=== PATIENT | male | born 1965 | race Caucasian/White ===

== ENCOUNTER → 2018-10-21 11:27 | Outpatient (CLI) | payer MEDICARE, MEDICAID, SELFPAY ==
[2018-10-21 12:54] LABS: Erythrocyte Sedimentation Rate 2 mm/hr (0-20)
[2018-10-21 13:02] LABS: Vitamin B12 642 pg/mL (211-911)
[2018-10-21 13:03] LABS: Thyroid Stim Hormone (TSH) 1.36 uIU/mL (0.358-3.74)
[2018-10-23 06:06] LABS: Ceruloplasmin 18.3 mg/dL (16.0-31.0)
[2018-10-24 16:54] LABS: Copper, Serum or Plasma 77 ug/dL (72-166)
== END ==
PROVIDERS: Family Provider Family Medicine; PCP Family Medicine; Referring Provider Psychiatry & Neurology Neurology; Visit Provider Psychiatry & Neurology Neurology
DX: R51 Headache (principal); R25.1 Tremor, unspecified
CPT/HCPCS: 36415; 82390; 82525; 82607; 84443; 85652

== ENCOUNTER → 2018-10-31 09:30 | Outpatient (CLI) | payer MEDICARE, MEDICAID, SELFPAY ==
--- NOTE | 2018-10-31 11:30 | MRI_ITS ---
STUDY: MRI BRAIN WITHOUT CONTRAST REASON FOR EXAM: Male, 53 years old. Headache, tremor, seizure TECHNIQUE: Standardized multiplanar fat and water weighted pulse sequences were obtained. COMPARISON: None. FINDINGS: Normal size of the ventricles and extra-axial spaces for the patient's age. Normal white matter tracts of the supratentorial brain. There is no evidence for recent intracranial ischemia or other cause of cytotoxic edema on diffusion weighted imaging (DWI). Normal T2* images of the brain without demonstrated susceptibility artifact. There is no demonstrated hemosiderin stain. Normal bilateral basal ganglia. Normal thalami. There is no extra-axial fluid accumulation. Normal flow voids within the major intracranial circulation suggesting patency by spin echo criteria. Normal sella turcica, pituitary gland, infundibular stalk, optic chiasm and hypothalamus. Normal tectal plate and pineal gland. Normal midbrain, reji and medulla. Normal cerebellum. Normal basal cisterns. Normal bilateral temporal bones. Normal bilateral internal auditory canals. No demonstrated orbital abnormality, within the constraints of a routine brain study. Normal visualized paranasal sinuses. Normal calvarium and skull base. Normal visualized soft tissue structures. Normal visualized upper cervical spine. MRI/Brain without Contrast IMPRESSION: Normal unenhanced MRI of the brain. Electronically Signed: Dominick Shelton MD at 12:11 EDT Tel , Service support ,
--- NOTE | 2018-11-03 13:00 | EEG ---
- Electroencephalogram Date of service 10/31/2018 History EEG is being done in this 53 yr M to rule out seizures EEG Description: This is an 18 channel EEG with 10-20 lead placement system. Bipolar montages, and Referential montages were reviewed. Photic stimulation and Hyperventilation were performed. The posterior dominant rhythm is 10 HZ synchronous, symmetric, reacting to eye opening and closing. Photo stimulation elicited normal driving response but no abnormal photoparoxysmal response, Hyperventilation did not elicit any abnormal photoparoxysmal response. Sleep was identified. There is no abnormal background slowing noted. There was no epileptiform discharges or electrographic seizures noted during this recording. Low voltage waveform during the record EEG Interpretation This is a normal awake and asleep EEG. There is no epileptiform discharges or electrographic seizures noted during the record.
== END ==
PROVIDERS: Family Provider Family Medicine; PCP Family Medicine; Referring Provider Psychiatry & Neurology Neurology; Visit Provider Psychiatry & Neurology Neurology
DX: R51 Headache (principal); R56.9 Unspecified convulsions
CPT/HCPCS: 70551; 95819

== ENCOUNTER 2024-10-13 20:14 | Emergency (ER) | payer MEDICARE, MEDICAID, SELFPAY ==
[2024-10-13 20:15] VITALS: BP 149/79; PULSE 84; RESP 18; TEMP 36.6; O2SAT 100; BMI 19.2
[2024-10-13 23:46] VITALS: BP 135/77; PULSE 61; RESP 18; TEMP 37.1; O2SAT 97
--- NOTE | 2024-10-13 23:48 | EDS_ITS ---
HPI HPI - Psych History of Present Illness Chief Complaint: Mental Health Detail of Chief Complaint: Agitation and history of schizoaffective disorder Informant: patient Onset/Context/Timing Onset: Month(s) (Problems with sister for 4 to 5 months) Context: Sudden Onset Conflict: Family Timing: Intermittent (Problem with sister and cousin) and Waxes and wanes Current Severity: Moderate Maximum Severity: Severe Worsened by: Situational factors Relieved by: Getting away from his sister Associated Symptoms Associated Symptoms - Psych: Positive for Depressed, Agitated and Angry; Negative for Change in Eating, Change in sleeping, Decreased Interest, Guilt, Decreased Concentration, Hopelessness, Suicidal Thoughts, Easily distracted, Grandiosity, Flight of Ideas, Increased activity, Pressured Speech, Hostile, Threatening, Confusion, Paranoia, Visual Hallucinations or Auditory Hallucinations Specific plan (suicidal thought): Not applicable Narrative Narrative: Patient is a 59-year-old male with history of schizoaffective disorder, hypercholesterolemia, GERD and depression who presents because of agitation. He states he can no longer tolerate his sister. He had problems for 4 to 5 months. She is causing problems between he and his cousin. They are all living in the same house apparently. He has no suicidal homicidal thoughts. He has no intention of harming his sister. He is upset with his sister. He states he needs to find a place of his own. He would like help to live someplace else. He has no other complaints or concerns. Prior similar symptoms: No Recent Illness/Hospitalization: No [facility] Medical History Nasal septal deviation Hyperlipemia Schizo affective schizophrenia Home Medications ?Medication ?Instructions ?Recorded ?Last Taken ?Type aripiprazole 10 mg tablet 10 mg PO DAILY 10/13/24 Unkn own History buspirone 15 mg tablet 15 mg PO TID 10/13/24 Unknow n History divalproex 500 mg tablet,extended 500 mg PO DAILY 09/21 08/14 Unknown History release 24 hr gabapentin 300 mg capsule PO 10/13/24 Unknown History levetiracetam 500 mg tablet 500 mg PO BID 10/13/24 Unk nown History meloxicam 15 mg tablet 15 mg PO DAILY 10/13/24 Unkn own History omeprazole 20 mg capsule,delayed 20 mg PO BID 10/13/24 Unknown History release simvastatin 20 mg tablet 20 mg PO QHS 10/13/24 Unknow n History sumatriptan succinate 50 mg tablet PO 10/13/24 Unknown History trazodone 100 mg tablet 100 mg PO QHS 10/13/24 Unkno wn History Allergy/AdvReac Type Severity Reaction Status Date / Time Penicillins Allergy Severe Anaphylaxis Verified 10/13/24 20:15 Social History Smoking Status: Current every day smoker tobacco type: cigarettes ROS ROS ED Constitutional Constitutional ED: Denies chills, fever(s) or subjective Eyes Eyes: Denies blurry vision or change in vision ENT ENT ED: Denies ear pain, rhinorrhea or sore throat Cardiovascular Cardiovascular: Denies chest pain or palpitations Respiratory/Chest Respiratory/Chest: Denies cough, dyspnea or dyspnea on exertion Gastrointestinal Gastrointestinal: Denies abdominal pain, diarrhea or vomiting Genitourinary Genitourinary ED: Denies dysuria, hematuria or urinary frequency Musculoskeletal Musculoskeletal: Denies arthralgias or myalgias Integumentary Denies rash Neurologic Neurologic: Denies headache(s) or paresthesias Psychiatric Psychiatric: Reports depression; Denies suicidal ideation or suicidal thoughts Hematologic/Lymphatic Hematologic/Lymphatic: Denies easy bleeding or easy bruising EXAM Physical Exam Const Vital Signs: 10/13/24 20:15 10/13/24 23:46 Temperature 97.9 F 98.8 F Temperature Source Temporal Pulse Rate 84 61 Respiratory Rate 18 18 Blood Pressure 149/79 H 135/77 H Blood Pressure Mean 102 96 Pulse Ox 100 97 Oxygen Delivery Method Room Air Positive well nourished, well developed and unkempt Constitutional Narrative: Blood pressure is elevated. He is not well-groomed. General Appearance ED: unkempt and well developed; Negative for pallor HEENT Reports TM's clear HEENT Narrative: Poor dentition with many missing teeth. normocephalic and atraumatic Tympanic Membrane ED: Yes TM's clear Eyes PERRL and EOMs intact bilaterally General Eye ED: Negative for pale conjunctiva or scleral icterus Neck no lymphadenopathy, supple and no JVD Resp normal respiratory effort and clear to auscultation bilaterally Cardio S1 normal heart sound, S2 normal heart sound and no murmurs Rate: regular rate Rhythm: regular rhythm GI non-tender Inspection: abdominal distention Auscultation: normoactive bowel sounds Palpation: soft Back/Spine no CVA tenderness Extremity normal to inspection General Extremety ED: Negative for edema General Extremity: Negative for edema Neuro oriented x3 and CN's II-XII intact bilaterally Sean Coma Scale: document GCS findings Spontaneous Obeys Commands Oriented 15 Sensorium / Orientation: alert Psych cooperative, speech normal, activity/motor behavior normal, denies hallucinations, denies homicidal ideation and denies suicidal ideation Appearance: grossly normal, appropriate and unkempt Attitude: calm Activity / Motor Behavior: appropriate eye contact and psychomotor slowing Speech: normal speech Mood & Affect: depressed Thought Process: normal thought process Thought Content: normal thought content Attention / Concentration: attention grossly intact and concentration grossly intact Memory / Cognition: memory grossly intact Insight: limited Judgement: fair Skin General Skin Exam: Negative for jaundice or pallor Lesions: no lesions Rashes: no rashes MDM MDM MDM Narrative Medical decision making narrative: Went to discuss case with case management. Case management had left by the time I had evaluated patient. In light of this crisis social studies department chair saw him. Made appropriate arrangements. He is willing to go back to the house. Crisis will help him with his family issues and housing. In my opinion there is no indication for laboratory testing or imaging. This is a psychosocial dynamic problem. Discharge Plan Triage Chief Complaint: Mental Health ED Provider: Rambo Suggs Dx/Rx/DC Orders Clinical Impression: Adjustment disorder with emotional disturbance, Schizoaffective disorder, Agitation, Elevated blood-pressure reading without diagnosis of hypertension Instructions: ED Adjustment Disorder, ED Hypertension, To Be Confirmed Prescriptions: No Action levetiracetam 500 mg tablet 500 mg PO BID meloxicam 15 mg tablet 15 mg PO DAILY sumatriptan succinate 50 mg tablet PO trazodone 100 mg tablet 100 mg PO QHS simvastatin 20 mg tablet 20 mg PO QHS divalproex 500 mg tablet extended release 24 hr 500 mg PO DAILY gabapentin 300 mg capsule PO omeprazole 20 mg capsule,delayed release(DR/EC) 20 mg PO BID buspirone 15 mg tablet 15 mg PO TID aripiprazole 10 mg tablet 10 mg PO DAILY Primary Care Provider: Sung Figueredo Referrals: Counseling,Center [Group of Physicians] - Keep Jose appointment Sung Figueredo MD [Primary Care Provider] - Print Language: Romanian Disposition Disposition: Home, Self Care
== END 2024-10-13 23:58 | disposition home or self-care (01) ==
PROVIDERS: Emergency Provider Emergency Medicine; PCP Family Medicine; Visit Provider Emergency Medicine
DX: F43.25 Adjustment disorder with mixed disturbance of emotions and conduct (principal); F25.9 Schizoaffective disorder, unspecified; R03.0 Elevated blood-pressure reading, without diagnosis of hypertension; K21.9 Gastro-esophageal reflux disease without esophagitis; E78.5 Hyperlipidemia, unspecified; F32.A Depression, unspecified; F17.210 Nicotine dependence, cigarettes, uncomplicated
CPT/HCPCS: 99285

== ENCOUNTER 2025-03-02 19:53 | Emergency (ER) | payer MEDICARE, MEDICAID, SELFPAY ==
[2025-03-02 20:14] VITALS: BP 110/76; PULSE 72; RESP 16; TEMP 36.8; O2SAT 99; BMI 18.4
--- NOTE | 2025-03-02 22:28 | EDS_ITS ---
HPI History of Present Illness Chief Complaint: Dental Detail of Chief Complaint: Jaw pain and swelling Informant: patient Narrative Narrative: Patient presents with left jaw pain and swelling that started 2 days ago. He denies any trauma. He staying at the [facility]. Does not have a dentist. He denies fever. [facility] Medical History Nasal septal deviation Hyperlipemia Schizo affective schizophrenia Home Medications Medication Instructions Recorded Last Taken Type aripiprazole 10 mg tablet 10 mg PO DAILY 10/13/24 Unkn own History buspirone 15 mg tablet 15 mg PO TID 10/13/24 Unknow n History divalproex 500 mg tablet,extended 500 mg PO DAILY 09/21 08/14 Unknown History release 24 hr gabapentin 300 mg capsule PO 10/13/24 Unknown History levetiracetam 500 mg tablet 500 mg PO BID 10/13/24 Unk nown History meloxicam 15 mg tablet 15 mg PO DAILY 10/13/24 Unkn own History omeprazole 20 mg capsule,delayed 20 mg PO BID 10/13/24 Unknown History release simvastatin 20 mg tablet 20 mg PO QHS 10/13/24 Unknow n History sumatriptan succinate 50 mg tablet PO 10/13/24 Unknown History trazodone 100 mg tablet 100 mg PO QHS 10/13/24 Unkno wn History clindamycin HCl 300 mg capsule 300 mg PO Q6H #40 CAPSU LES 03/02/25 Unknown Rx (Cleocin HCl) hydrocodone-acetaminophen 5-325mg 1 tab PO Q4H PRN PRN Pain 2 days 03/02/25 Unknown Rx 5mg-325mg #10 TABLETS Allergy/AdvReac Type Severity Reaction Status Date / Time Penicillins Allergy Severe Anaphylaxis Verified 03/02/25 20:16 milk (dairy) AdvReac Abd Verified 03/02/25 20:16 cramps/diarrhea Social History Smoking Status: Current every day smoker tobacco type: cigarettes ROS ROS ED Review of Systems ROS Unobtainable: other Constitutional Constitutional ED: Reports lethargy; Denies chills, fever(s), sweats or weight loss Eyes Eyes: Denies blurry vision, change in vision or diplopia ENT ENT ED: Reports other Details: Jaw pain and swelling, concern for dental abscess ; Denies rhinorrhea or sore throat Cardiovascular Cardiovascular: Denies chest pain, orthopnea or racing heartbeat Respiratory/Chest Respiratory/Chest: Reports dyspnea and dyspnea on exertion; Denies cough, orthopnea or sputum Gastrointestinal Gastrointestinal: Denies abdominal pain, diarrhea, nausea or vomiting Genitourinary Genitourinary ED: Denies dysuria, hematuria or urinary frequency Musculoskeletal Musculoskeletal: Denies arthralgias, back pain, myalgias or neck pain Integumentary Denies abscess, Abrasions or rash Neurologic Neurologic: Denies headache(s) or weakness Psychiatric Psychiatric: Denies anxiety, depression or suicidal thoughts Endocrine Endocrinology: Denies polydipsia, polyphagia or polyuria Hematologic/Lymphatic Hematologic/Lymphatic: Denies easy bleeding, easy bruising or lymphadenopathy Allergic/Immunologic Allergic/Immunologic ED: Denies mouth swelling, tongue swelling or urticaria EXAM Physical Exam Const Vital Signs: 03/02/25 20:14 Temperature 98.2 F Temperature Source Oral Pulse Rate 72 Respiratory Rate 16 Blood Pressure 110/76 Blood Pressure Mean 87 Pulse Ox 99 Oxygen Delivery Method Room Air Positive well nourished and well developed General Appearance ED: well developed and NAD HEENT Reports TM's clear and moist mucous membranes HEENT Narrative: Dentition-patient has multiple missing teeth left lower jaw missing all his molars. Some tenderness over tooth #22 and 23. Gingivitis erythematous and swollen with some fluctuance noted. There is no facial cellulitis. normocephalic and atraumatic; Negative for trauma or tenderness Tympanic Membrane ED: Yes TM's clear Eyes PERRL and EOMs intact bilaterally General Eye ED: Negative for pale conjunctiva or scleral icterus Neck no lymphadenopathy, supple and no JVD General: Negative for tenderness Chest Wall inspection of chest normal and palpation of chest normal Chest: Negative for tenderness Resp normal respiratory effort and clear to auscultation bilaterally Effort and Inspection: Negative for respiratory distress or pain with movement Auscultation: Negative for rhonchi, wheezes or diminished lung sounds Cardio regular rate, regular rhythm, S1 normal heart sound, S2 normal heart sound and no murmurs Peripheral Pulses: pulses 2+ throughout GI normal to inspection, nondistended, normoactive bowel sounds, soft to palpation, non-tender, non-distended and no masses Back/Spine no CVA tenderness and no thoracic nor lumbar tenderness Extremity normal to inspection General Extremety ED: Negative for edema General Extremity: Negative for edema Neuro oriented x3, CN's II-XII intact bilaterally, no sensory deficits noted and gait normal Sensorium / Orientation: awake, alert, oriented to person, oriented to place and oriented to time Motor Exam: strength 5/5 throughout and strength abnormal Psych mental status grossly normal Skin no rashes or lesions noted and no wounds MDM MDM MDM Narrative Medical decision making narrative: Patient presents to the ER with suspected dental abscess. Discussed treatment options including antibiotics and incision and drainage of suspected abscess which I did recommend. Patient comfortable with proceeding with incision and drainage. I used a 18-gauge needle to make a stab incision into the most fluctuant portion of the gingiva and large amount of free-flowing purulent debris was expressed with some blood. Patient gargled and irrigated with water. Patient was started on clindamycin. Will treat with clindamycin and hydrocodone for pain. Will refer to a dentist for follow-up. Discharge Plan Triage Chief Complaint: Dental ED Provider: Grayson Estrella Dx/Rx/DC Orders Clinical Impression: Abscess, dental Instructions: Dental Abscess, ED Abscess Incision And Drainage Prescriptions: New clindamycin HCl [Cleocin HCl] 300 mg capsule 300 mg PO Q6H Qty: 40 0RF hydrocodone-acetaminophen 5-325 mg tablet 1 tab PO Q4H PRN PRN (Reason: Pain) 2 Days Qty: 10 0RF No Action levetiracetam 500 mg tablet 500 mg PO BID meloxicam 15 mg tablet 15 mg PO DAILY sumatriptan succinate 50 mg tablet PO trazodone 100 mg tablet 100 mg PO QHS simvastatin 20 mg tablet 20 mg PO QHS divalproex 500 mg tablet extended release 24 hr 500 mg PO DAILY gabapentin 300 mg capsule PO omeprazole 20 mg capsule,delayed release(DR/EC) 20 mg PO BID buspirone 15 mg tablet 15 mg PO TID aripiprazole 10 mg tablet 10 mg PO DAILY Primary Care Provider: Sung Figueredo Referrals: Sung Figueredo MD [Primary Care Provider, Medical] Activity Restrictions/Additional Instructions: Follow-up with a dentist at your earliest convenience Print Language: Citizen Of [place] Disposition Disposition: Home, Self Care
[2025-03-02 22:31] VITALS: BP 151/98; PULSE 63; RESP 18; TEMP 36.8; O2SAT 99
--- OUTSIDE RECORDS SUMMARY | 2025-03-02 22:37 | XMS RPT_ITS | CCD ---
Author Organization [facility] Care Team Providers Care Aoc Director Intelligence Officer Name Role Phone JESSICA YO Unavailable Unavailable Sung Crowe MD Primary Care Provider Sung Crowe MD Primary Care Provider Sung Crowe MD Primary Care Provider Sung Crowe MD Primary Care Provider SUNG CROWE Primary Care Unavailable ISAAC GASTON Attending Unavailable STELLA LOPEZ Referring Unavailable ORQUIDEA EATON Attending Unavailable JENNIFER SHANNON Referring Unavailable SUNG CROWE Primary Care Unavailable Sung Crowe MD Primary Care Provider Haagen MARINA SALES AND SERVICE SUPERVISOR.HARITHA Monica Unavailable Suppan MARINA SALES AND SERVICE SUPERVISOR.HARITHA Janey A Unavailable Suppan MARINA SALES AND SERVICE SUPERVISOR.HARITHA, Janey A Unavailable Dr. Sung Crowe MD Primary Care Provider Dr. Rambo Suggs MD Emergency Provider Sung Crowe Primary Care Unavailable Rambo Suggs Attending Unavailable JANEY CHAUDHARY Attending Unavailable SUNG CROWE Primary Care Unavailable JANEY CHAUDHARY Referring Unavailable SUNG CROWE Primary Care Unavailable JAMIE HAAS Referring Unavailable SUNG CROWE Primary Care Unavailable SUNG CROWE Primary Care Unavailable FELIPE ASCENCIO Attending Unavailable JANEY CHAUDHARY Referring Unavailable SUNG CROWE Primary Care Unavailable SUNG GLYNN JR Attending Unavailable SUNG CROWE Primary Care Unavailable SUNG GLYNN JR Referring Unavailable SUNG CROWE Primary Care Unavailable Allergies Allergy Classification Reported Allergen(s) Allergy Type Date of Onset Reaction(s) Facility (20 sources) Penicillin; Translations: [PENICILLIN] Drug Allergy 06-03-2017 Anaphylaxis [facility] (20 sources) Bee Sting; Translations: [BEE STING] Allergy to substance 08-25-2021 Swelling [facility] (1 source) Penicillins Allergy to substance 10-13-2024 Anaphylaxis [facility] (1 source) Penicillins Drug allergy (disorder) 10-13-2024 [facility] Repository Medications Current Medications Medication Drug Class(es) Dates Sig (Normalized) Sig (Original) ARIPiprazole 10 mg oral tablet (20 sources) Atypical Antipsychotic Start: 04-24-2023 End: 04-09-2024 take 1 tablet by mouth once daily Aripiprazole 10 mg tablet Active 10 mg PO DAILY October 13, 2024 12:00am Start: 01-21-2023 take 1 tablet by farideh th once daily ARIPiprazole (ABILIFY) 10 mg tablet Indications: Paranoid schizophrenia (HCC) Take 1 tablet by mouth once daily. 30 tablet 2 01/21/2023 Active Start: 09-28-2022 take 1 tablet by farideh th once daily ARIPiprazole (ABILIFY) 10 mg tablet Indications: Paranoid schizophrenia (HCC) Take 1 tablet by mouth once daily. 30 tablet 2 09/28/2022 Active Start: 05-24-2021 End: 07-24-2022 take 1 tablet by mouth once daily ARIPiprazole (ABILIFY) 10 mg tablet Indications: Paranoid schizophrenia (HCC) Take 1 tablet by mouth once daily. 30 tablet 2 08/25/2021 12/21/2021 Discontinued Comment on above: Take 1 tablet by farideh th once daily. ascorbic acid 100 mg oral tablet (20 sources) Vitamin C take 1 tablet by mouth once daily Ascorbic Acid (VITAMIN C) 100 mg tablet Take 100 mg by mouth once daily. Active Comment on above: Take 100 mg by mouth once daily. busPIRone hydrochloride 15 mg oral tablet (20 sources) Start: 09-28-2022 End: 01-03-2024 take 1 tablet by mouth three times daily Buspirone 15 mg tablet Active 15 mg PO THREE TIMES A DAY October 13, 2024 12:00am Start: 02-22-2021 End: 02-27-2022 take 1 tablet by mouth three times daily busPIRone (BUSPAR) 15 mg tablet Indications: Anxiety Take 1 tablet by mouth three times daily. 90 tablet 5 08/25/2021 02/27/2022 Discontinued Comment on above: Take 1 tablet by farideh three times daily. Take 1 tablet by farideh three times a day. cholecalciferol 0.01 mg oral capsule (20 sources) Vitamin D take 1 capsule by mouth once daily cholecalciferol, vitamin D3, (VITAMIN D-3) 10 mcg (400 unit) cap Take 400 Units by mouth once daily. Active Comment on above: Take 400 Units by mo [facility] once daily. diclofenac sodium 0.01 mg/mg topical gel (5 sources) Nonsteroidal Anti-inflammatory Drug Start: 05-30-19 End: 11-27-19 apply 4 g topically four times daily diclofenac (VOLTAREN ARTHRITIS PAIN) 1 % topical gel Indications: Acute pain of left knee Apply 4 g to affected area four times daily. To knee 480 g 5 05/30/2022 11/26/2022 Active Comment on above: Apply 4 g to affecte d area four times daily. To knee doxycycline monohydrate 100 mg oral tablet (2 sources) Tetracycline-class Drug Start: 07-30-19 25 End: 08-06-19 25 take 1 tablet by mouth twice daily doxycycline monohydrate 100 mg tablet Take 1 tablet by mouth two times a day for 7 days. 14 tablet 07/29/2024 08/05/2024 Active Start: 07-02-2024 End: 07-09-2024 take 1 tablet by mouth twice daily doxycycline (VIBRA-TABS) 100 mg tablet Indications: Rash Take 1 tablet by mouth two times a day for 7 days. 14 tablet 07/02/2024 07/09/2024 Active enteric contrast (will be provided with radiology test) (2 sources) Start: 12-05-2022 End: 12-06-2022 enteric contrast (will be provided with radiology test) Indications: Weight loss , Left upper quadrant abdominal pain , Chest wall pain , Intercostal pain For CT ABD/PEL W IVCON Routine order Administer, As Directed One Time Only, via Oral, Rectal, both Oral and Rectal, Enteric Tube, Stoma or Indwelling Catheter, Enteric Contrast as designated per enteric contrast guidelines 1 Each 0 12/05/2022 12/06/2022 Active Comment on above: For CT ABD/PEL W IVC ON Routine order Administer, As Directed One Time Only, via Oral, Rectal, both Oral and Rectal, Enteric Tube, Stoma or Indwelling Catheter, Enteric Contrast as designated per enteric contrast guidelines gabapentin 300 mg oral capsule (20 sources) Anti-epileptic Agent Start: 10-13-2024 Gabapenti n 300 mg capsule Active PO October 13, 2024 12:00am Start: 03-06-2024 End: 09-02-2024 take 2 capsules by mouth once daily at bedtime gabapentin (NEURONTIN) 300 mg capsule Take 2 capsules by mouth daily at bedtime for 180 days. 180 capsule 1 03/06/2024 Active Start: 01-21-2023 End: 03-06-2024 take 1 capsule by mouth twice daily gabapentin (NEURONTIN) 300 mg capsule Take 1 capsule by mouth two times a day for 90 days. 60 capsule 2 12/03/2023 03/06/2024 Discontinued Start: 05-24-2021 End: 12-27-2022 take 1 capsule by mouth twice daily gabapentin (NEURONTIN) 300 mg capsule Take 1 capsule by mouth twice daily for 90 days. 60 capsule 2 05/24/2021 08/31/2021 Discontinued Comment on above: Take 1 capsule by [facility] twice daily for 90 days. Take 1 capsule by [facility] two times a day for 90 days. iv contrast (will be provided with radiology test) (2 sources) Start: 12-06-19 End: 12-07-19 iv contrast (will be provided with radiology test) Indications: Weight loss , Left upper quadrant abdominal pain CT ABD/PEL -Inject, intravenously, once for 1 dose.No IV access, insert saline lock prior to the beginning of sedation, infusion, injection of imaging exam. Discontinue saline lock post exam. If Pt. has a central line or IVAD, may access for administration according to line specific nursing protocol. Once exam is complete flush line and de-access according to line specific nursing protocol in the CT contrast administration guidelines link. 1 Each 0 12/05/2022 12/06/2022 Active Comment on above: CT ABD/PEL -Inject, intravenously, once for 1 dose.No IV access, insert saline lock prior to the beginning of sedation, infusion, injection of imaging exam. Discontinue saline lock post exam. If Pt. has a central line or IVAD, may access for administration according to line specific nursing protocol. Once exam is complete flush line and de-access according to line specific nursing protocol in the CT contrast administration guidelines link. ketoconazole 20 mg/ml medicated shampoo (20 sources) Azole Antifungal Start: 12-23-19 End: 07-03-19 ketoconazole (NIZORAL) 2 % shampoo Indications: Seborrheic keratoses Apply to affected area once daily as needed. 120 mL 5 07/03/2023 Active Comment on above: Apply to affected ar ea once daily as needed. levETIRAcetam 500 mg oral tablet (20 sources) Start: 09-29-19 End: 04-13-20 take 1 tablet by mouth twice daily Levetiracetam 500 mg tablet Active 500 mg PO TWICE A DAY October 13, 2024 12:00am Start: 02-22-2021 End: 03-28-2022 take 1 tablet by mouth twice daily levETIRAcetam (KEPPRA) 500 mg tablet Indications: Paranoid schizophrenia (HCC) Take 1 tablet by mouth twice daily. 60 tablet 5 08/25/2021 03/28/2022 Discontinued Comment on above: Take 1 tablet by farideh th twice daily. Take 1 tablet by farideh th two times a day. meloxicam 15 mg oral tablet (20 sources) Nonsteroidal Anti-inflammatory Drug Start: 03-27-2023 End: 07-24-2024 take 1 tablet by mouth once daily Meloxicam 15 mg tablet Active 15 mg PO DAILY October 13, 2024 12:00am Start: 02-22-2021 End: 05-30-2022 take 1 tablet by mouth once daily meloxicam (MOBIC) 15 mg tablet Indications: Chronic right-sided low back pain Take 1 tablet by mouth once daily. 30 tablet 5 08/25/2021 02/27/2022 Discontinued Comment on above: Take 1 tablet by farideh th once daily. methylPREDNISolone (1 source) Corticosteroid Start: 12-23-19 End: 12-29-19 methylPREDNISolone (MEDROL, KENDALL,) 4 mg Dose-Pack Indications: Chronic pain of left knee Follow dosing instructions, take with food. 21 tablet 0 12/22/2021 12/28/2021 Active Comment on above: Follow dosing instru ctions, take with food. multivit,thx,calcium,iron,m ins (MULTIVITAMIN AND MINERAL ORAL) (20 sources) multivit,thx,shaniqua cium,iron, mins (MULTIVITAMIN AND MINERAL ORAL) Take by mouth. Active multivit,thx,shaniqua cium,iron,mins (MULTIVITAMIN AND MINERAL ORAL) Take by mouth. 0 Active Comment on above: Take by mouth. omeprazole 20 mg delayed release oral capsule (20 sources) Proton Pump Inhibitor Start: 3 End: take 1 capsule by mouth twice daily in the morning, then take 9 capsules by mouth in the evening omeprazole (PRILOSEC) 20 mg capsule Indications: GERD without esophagitis , Gastritis without bleeding, unspecified chronicity, unspecified gastritis type Take 1 capsule by mouth two times a day at 6 am and 9 pm. 60 capsule 11 07/24/2024 07/24/2025 Active Start: 02-22-2021 End: 05-30-2022 take 1 capsule by mouth once daily omeprazole (PRILOSEC) 20 mg capsule Indications: GERD without esophagitis Take 1 capsule by mouth once daily. 30 capsule 5 08/25/2021 02/27/2022 Discontinued Comment on above: Take 1 capsule by mo [facility] once daily. Take 1 capsule by mo [facility] twice daily at 6AM and 9PM. Take 1 capsule by mo ut two times a day at 6 am and 9 pm. oxybutynin chloride 5 mg oral tablet (20 sources) Cholinergic Muscarinic Antagonist Start: 09-28-2022 End: 12-03-2023 take 1 tablet by mouth three times daily oxybutynin (DITROPAN) 5 mg tablet Take 1 tablet by mouth three times a day. 90 tablet 5 12/03/2023 Active Start: 02-22-2021 End: 02-27-2022 take 1 tablet by mouth three times daily oxybutynin (DITROPAN) 5 mg tablet Take 1 tablet by mouth three times daily. 90 tablet 5 08/25/2021 02/27/2022 Discontinued Comment on above: Take 1 tablet by farideh three times daily. Take 1 tablet by farideh three times a day. predniSONE 10 mg oral tablet (1 source) Start: 5 End: 5 predniSONE (DELTASONE) 10 mg tablet Indications: Rash Take 4 tabs daily for 3 days, then 2 tabs daily for 3 days, then 1 tab daily for 3 days with food. 21 tablet 07/02/2024 07/11/2024 Active simvastatin 20 mg oral tablet (20 sources) HMG-CoA Reductase Inhibitor Start: 3 End: 4 take 1 tablet by mouth at bedtime Simvastatin 20 mg tablet Active 20 mg PO AT BEDTIME October 13, 2024 12:00am Start: 02-22-2021 End: 02-27-2022 take 1 tablet by mouth once daily at bedtime simvastatin (ZOCOR) 20 mg tablet Indications: Mixed hyperlipidemia Take 1 tablet by mouth daily at bedtime. 30 tablet 5 08/25/2021 02/27/2022 Discontinued Comment on above: Take 1 tablet by farideh th daily at bedtime. solifenacin succinate 5 mg oral tablet (11 sources) Cholinergic Muscarinic Antagonist Start: 4 End: 5 take 1 tablet by mouth once daily solifenacin (VESICARE) 5 mg tablet Indications: OAB (overactive bladder) Take 1 tablet by mouth once daily. 90 tablet 1 04/13/2024 Active SUMAtriptan 50 mg oral tablet (20 sources) Serotonin-1b and Serotonin-1d Receptor Agonist Start: 5 Sumatriptan Succinate 50 mg tablet Active PO October 13, 2024 12:00am Start: 03-27-2023 End: 04-13-2024 take 1 tablet by mouth every month as needed for headache SUMAtriptan (IMITREX) 50 mg tablet Indications: Migraine without aura, intractable, without status migrainosus Take 1 tablet (50 mg) by mouth as needed. at onset of headache. May repeat after 2 hours.No more than 2 doses in 24 hours. No more than 10 doses in a month 10 tablet 5 04/13/2024 Active Start: 06-13-2022 take 1 tablet by farideh th every month as needed for headache SUMAtriptan (IMITREX) 50 mg tablet Take 1 tablet by mouth as needed. at onset of headache. May repeat after 2 hours.No more than 2 doses in 24 hours. No more than 10 doses in a month 10 tablet 3 06/13/2022 Active Comment on above: Take 1 tablet by farideh th as needed. at onset of headache. May repeat after 2 hours.No more than 2 doses in 24 hours. No more than 10 doses in a month Take 1 tablet (50 mg ) by mouth as needed. at onset of headache. May repeat after 2 hours.No more than 2 doses in 24 hours. No more than 10 doses in a month traZODone hydrochloride 100 mg oral tablet (20 sources) Serotonin Reuptake Inhibitor Start: 3 End: 4 take 1 tablet by mouth at bedtime Trazodone 100 mg tablet Active 100 mg PO AT BEDTIME October 13, 2024 12:00am Start: 02-22-2021 End: 02-27-2022 take 1 tablet by mouth once daily at bedtime traZODone (DESYREL) 100 mg tablet Indications: Anxiety Take 1 tablet by mouth daily at bedtime. 30 tablet 5 08/25/2021 02/27/2022 Discontinued Comment on above: Take 1 tablet by farideh th daily at bedtime. 24 hr divalproex sodium 500 mg extended release oral tablet (16 sources) Mood Stabilizer, Anti-epileptic Agent Start: 4 End: 5 take 1 tablet by mouth once daily at bedtime divalproex ER (DEPAKOTE ER) 500 mg 24 hr tablet Take 1 tablet by mouth daily at bedtime. 30 tablet 2 08/21/2024 02/17/2025 Active varenicline 1 mg oral tablet (11 sources) Partial Cholinergic Nicotinic Agonist Start: 4 End: 5 varenicline (CHANTIX) 1 mg tablet Indications: Tobacco abuse Take 1 tablet by mouth two times a day with meals. 1 starter pack and 6 monthly maintenance refills 60 tablet 5 04/13/2024 Active Completed/Discontinued Medications Medication Drug Class(es) Dates Sig (Normalized) Sig (Original) propranolol hydrochloride 10 mg oral tablet (20 sources) beta-Adrenergic Darwin Start: 09-28-2022 End: 08-19-2023 take 1 tablet by mouth once daily propranolol (INDERAL) 10 mg tablet Indications: Tremors of nervous system , Migraine with aura, not intractable, without status migrainosus Take 1 tablet by mouth once daily. 90 tablet 1 02/20/2023 07/03/2023 Discontinued (Other) Start: 09-28-2022 End: 08-19-2023 take 1 capsule by mouth once daily propranolol ER (INDERAL LA) 80 mg 24 hr capsule Indications: Tremors of nervous system , Migraine with aura, not intractable, without status migrainosus Take 1 capsule by mouth once daily. 90 capsule 1 02/20/2023 07/03/2023 Discontinued (Other) Start: 12-22-2021 End: 06-20-2022 take 1 capsule by mouth once daily propranolol ER (INDERAL LA) 80 mg 24 hr capsule Indications: Tremors of nervous system , Migraine with aura, not intractable, without status migrainosus Take 1 capsule by mouth once daily. 90 capsule 1 12/22/2021 Active Start: 12-22-2021 End: 06-20-2022 take 1 tablet by mouth once daily propranolol (INDERAL) 10 mg tablet Indications: Tremors of nervous system , Migraine with aura, not intractable, without status migrainosus Take 1 tablet by mouth once daily. 90 tablet 1 12/22/2021 Active Comment on above: Take 80 mg by mouth once daily. Take 1 capsule by mo uth once daily. Take 1 tablet by farideh th once daily. topiramate 25 mg oral tablet (20 sources) Start: 02-20-2023 End: 03-06-2024 topiramate (TOPAMAX) 25 mg tablet Indications: Intractable migraine without status migrainosus, unspecified migraine type , Tremor Take 2 tabs at hs. 60 tablet 5 01/03/2024 03/06/2024 Discontinued Start: 03-09-2022 End: 02-20-2023 topiramate (TOPAMAX) 25 mg t ablet Indications: Intractable migraine without status migrainosus, unspecified migraine type , Tremor Take 1 tab at bedtime x1 week. Then increase to 2 tabs at bedtime x1 week. Then increase to 3 tabs at bedtime and continue. 90 tablet 2 09/28/2022 02/20/2023 Discontinued Comment on above: Take 1 tab at bedtim e x1 week. Then increase to 2 tabs at bedtime x1 week. Then increase to 3 tabs at bedtime and continue. Take 1 tablet by farideh th three times daily. Take three tablets at bedtime. Take 2 tabs at hs. Problems Active Problems Problem Classification Problem Date Documented Da te Episodic/Chronic Adjustment disorders (2 sources) Adjustment disorder; Translations: [Adjustment disorder with other symptoms] Onset: 5 10-13-2024 Chronic Anxiety disorders (20 sources) Anxiety; Translations: [Anxiety disorder, unspecified] Onset: 8 07-05-2017 Chronic Chronic obstructive pulmonary disease and bronchiectasis (3 sources) Chronic obstructive lung disease; Translations: [Chronic obstructive pulmonary disease, unspecified] 02-20-2023 Chronic Disorders of lipid metabolism (20 sources) Hyperlipidemia; Translations: [Hyperlipidemia, unspecified] 07-05-2017 Chronic Esophageal disorders (20 sources) Gastroesophageal reflux disease; Translations: [Gastro-esophageal reflux disease without esophagitis] Onset: 8 07-05-2017 Chronic Gastritis and duodenitis (4 sources) Gastritis; Translations: [Gastritis, unspecified, without bleeding] Episodic Headache; including migraine (11 sources) Migraine with aura; Translations: [Migraine with aura, not intractable, without status migrainosus] Onset: 4 Chronic Immunizations and screening for infectious disease (5 sources) Needs influenza immunization; Translations: [Encounter for immunization] Episodic Joint disorders and dislocations; trauma-related (3 sources) Chronic instability of left knee joint; Translations: [Chronic instability of knee, left knee] Onset: 4 04-13-2024 Chronic Mood disorders (20 sources) Bipolar disorder; Translations: [Bipolar disorder, unspecified] Onset: 3 07-05-2017 Chronic Nausea and vomiting (1 source) Nausea; Translations: [Nausea] 07-03-2023 Episodic Nonspecific chest pain (2 sources) Chest wall pain; Translations: [Other chest pain] 12-05-2022 Episodic Osteoarthritis (5 sources) Osteoarthritis of left knee joint; Translations: [Osteoarthritis of knee] Onset: 5 06-04-2024 Chronic Other acquired deformities (3 sources) Abner legged; Translations: [Varus deformity, not elsewhere classified, left knee] 06-04-2024 Episodic Other aftercare (6 sources) Patient encounter status; Translations: [Encounter for therapeutic drug level monitoring] Episodic Other and unspecified benign neoplasm (1 source) History of polyp of colon; Translations: [Personal history of colonic polyps] 12-05-2022 Episodic Other circulatory disease (1 source) Elevated blood-pressure reading without diagnosis of hypertension; Translations: [Elevated blood-pressure reading, without diagnosis of hypertension] 10-13-2024 Episodic Other diseases of bladder and urethra (20 sources) Overactive bladder; Translations: [Overactive bladder] Onset: 03-10-2020 Chronic Other gastrointestinal disorders (1 source) Altered bowel function; Translations: [Other specified symptoms and signs involving the digestive system and abdomen] 12-05-2022 Episodic Other hereditary and degenerative nervous system conditions (2 sources) Intention tremor; Translations: [Other specified forms of tremor] 12-12-2022 Chronic Other hereditary and degenerative nervous system conditions (2 sources) Medication-induced postural tremor; Translations: [Drug-induced tremor] 12-12-2022 Chronic Other lower respiratory disease (1 source) Multiple nodules of lung; Translations: [Other nonspecific abnormal finding of lung field] 12-13-2022 Episodic Other nervous system disorders (3 sources) Neuropathy; Translations: [Polyneuropathy, unspecified] 12-12-2022 Chronic Other nervous system disorders (1 source) Polyneuropathy, unspecified; Translations: [Neuropathy] Onset: Chronic Other nervous system disorders (20 sources) Tremor; Translations: [Tremor, unspecified] 07-05-2017 Episodic Other non-traumatic joint disorders (1 source) Shoulder pain; Translations: [Pain in right shoulder] Episodic Other non-traumatic joint disorders (1 source) Pain in right shoulder; Translations: [Pain in joint, shoulder region] 08-25-2021 Episodic Other non-traumatic joint disorders (2 sources) Effusion of joint of left knee; Translations: [Effusion, left knee] 06-03-2024 Episodic Other nutritional; endocrine; and metabolic disorders (20 sources) Developmental delay; Translations: [Unspecified lack of expected normal physiological development in childhood] 07-05-2017 Episodic Other nutritional; endocrine; and metabolic disorders (2 sources) Weight loss; Translations: [Abnormal weight loss] 12-05-2022 Episodic Other nutritional; endocrine; and metabolic disorders (1 source) Decrease in appetite; Translations: [Anorexia] 03-06-2024 Episodic Other nutritional; endocrine; and metabolic disorders (1 source) Abnormal weight loss; Translations: [Abnormal weight loss] 03-06-2024 Episodic Other skin disorders (2 sources) Seborrheic keratosis; Translations: [Other seborrheic keratosis] Episodic Other skin disorders (1 source) Eruption; Translations: [Rash and other nonspecific skin eruption] 07-02-2024 Episodic Residual codes; unclassified (1 source) Restlessness and agitation; Translations: [Restlessness and agitation] 10-13-2024 Chronic Residual codes; unclassified (20 sources) Insomnia; Translations: [Insomnia, unspecified] 07-05-2017 Episodic Residual codes; unclassified (1 source) History of clinical finding in subject; Translations: [Personal history of other specified conditions] 09-04-2023 Episodic Residual codes; unclassified (1 source) Tobacco user; Translations: [Tobacco use] 04-13-2024 Episodic Schizophrenia and other psychotic disorders (20 sources) Paranoid schizophrenia; Translations: [Paranoid schizophrenia] Onset: 07-05-2017 Chronic Spondylosis; intervertebral disc disorders; other back problems (20 sources) Chronic low back pain; Translations: [Chronic lower back pain] 07-05-2017 Episodic Superficial injury; contusion (1 source) Superficial foreign body, right knee, initial encounter; Translations: [Superficial foreign body (splinter) of hip, thigh, leg, and ankle, without major open wound and without mention of infection] 07-03-2023 Episodic Unclassified (1 source) Effusion of joint of left knee 06-04-2024 Past or Other Problems Problem Classification Problem Date Documented Da te Episodic/Chronic Abdominal pain (8 sources) Epigastric pain; Translations: [Epigastric pain] Onset: 08-09-2022 Episodic Conditions associated with dizziness or vertigo (4 sources) Lightheadedness; Translations: [Dizziness and giddiness] Onset: 03-06-2024 12-12-2022 Episodic Other acquired deformities (1 source) Varus deformity, not elsewhere classified, left knee; Translations: [Genu varum of left lower extremity] Onset: 07-13-2024 Episodic Other lower respiratory disease (20 sources) Nodule of lung; Translations: [Solitary pulmonary nodule] Onset: 12-13-2022 12-13-2022 Episodic Other nervous system disorders (1 source) Tremor, unspecified; Translations: [Tremor] Onset: 03-06-2024 Episodic Other non-traumatic joint disorders (10 sources) Pain in left knee; Translations: [Pain in joint, lower leg] Onset: 05-19-2024 Episodic Other non-traumatic joint disorders (2 sources) Pain in right knee; Translations: [Pain in joint, lower leg] Onset: 05-19-2024 05-19-2024 Episodic Other non-traumatic joint disorders (1 source) Effusion, left knee; Translations: [Effusion of left knee] Onset: 07-13-2024 Episodic Other nutritional; endocrine; and metabolic disorders (1 source) Anorexia; Translations: [Poor appetite] Onset: 03-06-2024 Episodic Other nutritional; endocrine; and metabolic disorders (1 source)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 3040-3 ####[facility] [id number] [place] [address] [place] Anion gap [Moles/Vol] 9 mmol/L Normal 8-15 [facility] Comment on above: Order Comment: Speci men Type: BLOOD SPECIMENOrdering Facility: [facility] Address: [address] [place] [address] Performed By: #### 2 4323-8, 3016-3, 1798-8, 3040-3 ####[facility] [id number] [place] [address] [place] AST [Catalytic activity/Vol] 21 U/L Normal 14-40 [facility] Comment on above: Order Comment: Speci men Type: BLOOD SPECIMENOrdering Facility: [facility] Address: [address] [place] [address] Performed By: #### 2 4323-8, 3016-3, 1797-8, 0-3 ####[facility] [id number] [place] [address] [place] Bilirubin [Mass/Vol] 0.4 mg/dL Normal 0.2-1.3 [facility] Comment on above: Order Comment: Speci men Type: BLOOD SPECIMENOrdering Facility: [facility] Address: [address] [place] [address] Performed By: #### 2 4323-8, 3016-3, 179-8, 3040-3 ####[facility] [id number] [place] [address] [place] Calcium [Mass/Vol] 10.0 mg/dL Normal 8.5-10.2 [facility] Comment on above: Order Comment: Speci men Type: BLOOD SPECIMENOrdering Facility: [facility] Address: [address] [place] [address] Performed By: #### 2 4323-8, 3016-3, 1798-8, 3040-3 ####[facility] [id number] [place] [address] [place] Chloride [Moles/Vol] 105 mmol/L Normal 98-107 [facility] Comment on above: Order Comment: Speci men Type: BLOOD SPECIMENOrdering Facility: [facility] Address: [address] [place] [address] Performed By: #### 2 4323-8, 3016-3, 1798-8, 3040-3 ####[facility] [id number] [place] [address] [place] CO2 [Moles/Vol] 26 mmol/L Normal 22-30 [facility] Comment on above: Order Comment: Speci men Type: BLOOD SPECIMENOrdering Facility: [facility] Address: [address] [place] [address] Performed By: #### 2 4323-8, 3016-3, 1798-8, 3040-3 ####[facility] [id number] [place] [address] [place] Creatinine [Mass/Vol] 1.17 mg/dL Normal 0.73-1.22 [facility] Comment on above: Order Comment: Speci men Type: BLOOD SPECIMENOrdering Facility: [facility] Address: [address] [place] [address] Performed By: #### 2 4323-8, 3016-3, 1798-8, 3040-3 ####[facility] [id number] [place] [address] [place] Creatinine and Glomerular filtration rate.predicted panel (S/P/Bld) 73 mL/min/1.73m??? Normal >=60 [facility] Comment on above: Order Comment: Speci men Type: BLOOD SPECIMENOrdering Facility: [facility] Address: [address] [place] [address] Result Comment: Divina mated Glomerular Filtration Rate (eGFR) is calculated using the 2020 CKD-EPI creatinine equation. This equation utilizes serum creatinine, sex, and age as parameters. The creatinine assay has traceable calibration to isotope dilution-mass spectrometry. Refer to KDIGO guidelines for clinical interpretation. In patients with unstable renal function, e.g. those with acute kidney injury, the eGFR may not accurately reflect actual GFR. Performed By: #### 2 4323-8, 6-3, 1797-8, 3039-3 ####[facility] [id number] [address] [address] [place] Glucose [Mass/Vol] 94 mg/dL Normal 74-99 [facility] Comment on above: Order Comment: Brandon rebollar Type: BLOOD SPECIMENOrdering Facility: [facility] Address: [address] [place] [address] Result Comment: The [place] [employer] (ADA) provides guidance for cutoff values for fasting glucose and random glucose. The ADA defines fasting as no caloric intake for at least 8 hours. Fasting plasma glucose results between 100 to 125 mg/dL indicate increased risk for diabetes (prediabetes). Fasting plasma glucose results greater than or equal to 126 mg/dL meet the criteria for diagnosis of diabetes. In the absence of unequivocal hyperglycemia, results should be confirmed by repeat testing. In a patient with classic symptoms of hyperglycemia or hyperglycemic crisis, random plasma glucose results greater than or equal to 200 mg/dL meet the criteria for diagnosis of diabetes. Reference: Standards of Medical Care in Diabetes 2016, [place] [employer]. Diabetes Care. 2016.39(Suppl 1). Performed By: #### 2 4323-8, 6-3, 1797-8, 3039-3 ####[facility] [id number] [address] [address] [place] Potassium [Moles/Vol] 4.8 mmol/L Normal 3.7-5.1 [facility] Comment on above: Order Comment: Brandon rebollar Type: BLOOD SPECIMENOrdering Facility: [facility] Address: [address] [place] [address] Performed By: #### 2 4323-8, 6-3, 1797-8, 0-3 ####[facility] [id number] [address] [address] [place] Protein [Mass/Vol] 7.4 g/dL Normal 6.3-8.0 [facility] Comment on above: Order Comment: Speci men Type: BLOOD SPECIMENOrdering Facility: [facility] Address: [address] [place], [place] [address] Performed By: #### 2 4323-8, 3016-3, 1798-8, 3040-3 ####[facility] [id number] [place] [address] [place] Sodium [Moles/Vol] 140 mmol/L Normal 136-144 [facility] Comment on above: Order Comment: Speci men Type: BLOOD SPECIMENOrdering Facility: [facility] Address: [address] [place] [address] Performed By: #### 2 4323-8, 3016-3, 1797-8, 0-3 ####[facility] [id number] [place] [address] [place] Urea nitrogen [Mass/Vol] 11 mg/dL Normal 9-24 [facility] Comment on above: Order Comment: Speci men Type: BLOOD SPECIMENOrdering Facility: [facility] Address: [address] [place] [address] Performed By: #### 2 4323-8, 3016-3, 179-8, 0-3 ####[facility] [id number] [place] [address] [place] Lipase SerPl-cCncon 03-06-20 24 Lipase [Catalytic activity/Vol] 48 U/L Normal 16-61 [facility] Comment on above: Order Comment: Speci men Type: BLOOD SPECIMENOrdering Facility: [facility] Address: [address] [place] [address] Performed By: #### 2 4323-8, 3016-3, 1798-8, 3040-3 ####[facility] [id number] [place] [address] [place] TSH SerPl-aCncon 11-15-2024 TSH Qn 3.000 m[IU]/L Normal 0.270-4.200 [facility] Comment on above: Order Comment: Speci men Type: BLOOD SPECIMENOrdering Facility: [facility] Address: [address] [place] [id number] Performed By: #### 2 4323-8, 3016-3, 1798-8, 3040-3 ####[facility] [id number] [place]Patrick [id number] [id number] [place] CNPNon 02-14-2024 CNPN Telephone (FAMWS) JUSTO GUSMAN ([id number]) 1965 Date Time Provider Department 02/14/24 SUNG CROWE [facility] During your visit today, we recorded the following information about you: Ruth Stern RN 02/14/2024 1:33 PM Signed Patient's sister Salma calls and states that patient has been having more angry outbursts in the past couple of months. Patient has been hitting himself hard in the face. Patient has been hitting Salma's dog when she is not around. Patient also has been throwing his phone, which he broke. Salma wondering if patient has labs out of balance and whether this may be causing patient's issues or whether patient needs medications adjusted. Salma would like to schedule appointment with Dr. Crowe. Offered appointment for today, Salma declined. Salma also declined appointment for Saturday. Salma does not want patient to see anyone but Dr. Crowe. Patient scheduled with Dr. Crowe on 03/09/2024. Please review and advise, MARYBETH Mora William J, MD 02/14/2024 1:36 PM Signed If worsens before hand, will need to see one of the covering providers in my group since I am out of the country or go to er before hand. Allergies As of Date: 02/14/2024 Noted Allergy Reaction BEE STING 08/25/2021 7 - Swelling PENICILLIN 06/03/2017 10 - Anaphylaxis Date Reviewed: 09/04/2023 Reviewed by: Stella Lopez PA-C - Fully Assessed Reason for Visit: Patient Update [1234] Prescriptions as of 02/14/2024 - levETIRAcetam (KEPPRA) 500 mg tablet Take 1 tablet by mouth two times a day. - simvastatin (ZOCOR) 20 mg tablet Take 1 tablet by mouth daily at bedtime. - busPIRone (BUSPAR) 15 mg tablet Take 1 tablet by mouth three times a day. - traZODone (DESYREL) 100 mg tablet Take 1 tablet by mouth daily at bedtime. - topiramate (TOPAMAX) 25 mg tablet Take 2 tabs at hs. - oxybutynin (DITROPAN) 5 mg tablet Take 1 tablet by mouth three times a day. - gabapentin (NEURONTIN) 300 mg capsule Take 1 capsule by mouth two times a day for 90 days. - meloxicam (MOBIC) 15 mg tablet Take 1 tablet by mouth once daily. - ARIPiprazole (ABILIFY) 10 mg tablet Take 1 tablet by mouth once daily. - SUMAtriptan (IMITREX) 50 mg tablet Take 1 tablet (50 mg) by mouth as needed. at onset of headache. May repeat after 2 hours.No more than 2 doses in 24 hours. No more than 10 doses in a month - ketoconazole (NIZORAL) 2 % shampoo Apply to affected area once daily as needed. - omeprazole (PRILOSEC) 20 mg capsule Take 1 capsule by mouth two times a day at 6 am and 9 pm. - cholecalciferol, vitamin D3, (VITAMIN D-3) 10 mcg (400 unit) cap Take 400 Units by mouth once daily. - multivit,thx,calcium,iron,min s (MULTIVITAMIN AND MINERAL ORAL) Take by mouth. - Ascorbic Acid (VITAMIN C) 100 mg tablet Take 100 mg by mouth once daily. Problem List As Of Date 02/14/2024 Noted Resolved Bipolar disorder (HCC) [F31.9] Hyperlipidemia [E78.5] GERD (gastroesophageal reflux disease) [K21.9] Anxiety [F41.9] Paranoid schizophrenia (HCC) [F20.0] Insomnia [G47.00] Tobacco use [Z72.0] 05/15/2018 Tremors of nervous system [R25.1] Developmental delay [R62.50] Chronic lower back pain [M54.50, G89.29] OAB (overactive bladder) [N32.81] 03/10/2020 Lung nodule [R91.1] 12/13/2022 Encounter Status:Closed by LISETTE MONTOYA on 02/14/24 Normal [facility] metabolic 2000 panelon 09-05-2023 Albumin [Mass/Vol] 4.3 g/dL 3.9 - 4.9 g/dL [facility] ALP [Catalytic activity/Vol] 49 U/L 38 - 113 U/L [facility] ALT [Catalytic activity/Vol] 25 U/L 10 - 54 U/L [facility] Anion gap [Moles/Vol] 12 mmol/L 9 - 18 mmol/L [facility] AST [Catalytic activity/Vol] 21 U/L 14 - 40 U/L [facility] Bilirubin [Mass/Vol] 0.4 mg/dL 0.2 - 1.3 mg/dL [facility] Calcium [Mass/Vol] 9.2 mg/dL 8.5 - 10.2 mg/dL [facility] Chloride [Moles/Vol] 109 mmol/L High 97 - 105 mmol/L [facility] CO2 [Moles/Vol] 24 mmol/L 22 - 30 mmol/L [facility] Creatinine [Mass/Vol] 1.05 mg/dL 0.73 - 1.22 mg/dL [facility] GFR/1.73 sq M.predicted among non-blacks MDRD (S/P/Bld) [Vol rate/Area] 83 mL/min/{1.73_m2} - PINF [facility] Comment on above: Estimated Glomerular Filtration Rate (eGFR) is calculated using the 2020 CKD-EPI creatinine equation. This equation utilizes serum creatinine, sex, and age as parameters. The creatinine assay has traceable calibration to isotope dilution-mass spectrometry. Refer to KDIGO guidelines for clinical interpretation. In patients with unstable renal function, e.g. those with acute kidney injury, the eGFR may not accurately reflect actual GFR. Glucose [Mass/Vol] 96 mg/dL 74 - 99 mg/dL [facility] Comment on above: The [place] Di[employer] s Association (ADA) provides guidance for cutoff values for fasting glucose and random glucose. The ADA defines fasting as no caloric intake for at least 8 hours. Fasting plasma glucose results between 100 to 125 mg/dL indicate increased risk for diabetes (prediabetes). Fasting plasma glucose results greater than or equal to 126 mg/dL meet the criteria for diagnosis of diabetes. In the absence of unequivocal hyperglycemia, results should be confirmed by repeat testing. In a patient with classic symptoms of hyperglycemia or hyperglycemic crisis, random plasma glucose results greater than or equal to 200 mg/dL meet the criteria for diagnosis of diabetes. Reference: Standards of Medical Care in Diabetes 2016, [place] [employer]. Diabetes Care. 2016.39(Suppl 1). Interpretation and review of laboratory results Abnormal [facility] Potassium [Moles/Vol] 4.7 mmol/L 3.7 - 5.1 mmol/L [facility] Protein [Mass/Vol] 6.5 g/dL 6.3 - 8.0 g/dL [facility] Sodium [Moles/Vol] 145 mmol/L High 136 - 144 mmol/L [facility] Urea nitrogen [Mass/Vol] 16 mg/dL 9 - 24 mg/dL [facility] CBC panel Auto (Bld)on 09-03 Erythrocyte distribution width (RBC) [Ratio] 14.3 % 11.5 - 15.0 % [facility] Hematocrit (Bld) [Volume fraction] 39.6 % 39.0 - 51.0 % [facility] Hemoglobin (Bld) [Mass/Vol] 13.3 g/dL 13.0 - 17.0 g/dL [facility] Interpretation and review of laboratory results Normal [facility] MCH (RBC) [Entitic mass] 31.7 pg 26.0 - 34.0 pg [facility] MCHC (RBC) [Mass/Vol] 33.6 g/dL 30.5 - 36.0 g/dL [facility] MCV (RBC) [Entitic vol] 94.3 fL 80.0 - 100.0 fL [facility] Nucleated RBC (Bld) [#/Vol] NINF [facility] Platelet mean volume (Bld) [Entitic vol] 12.4 fL 9.0 - 12.7 fL [facility] Platelets (Bld) [#/Vol] 259 10*3/uL [facility] RBC (Bld) [#/Vol] 4.20 10*6/uL 4.20 - 6.0 0 m/uL [facility] WBC (Bld) [#/Vol] 8.42 10*3/uL [facility] LUNG VOLUMESon 02-28-2023 [facility] SPIROMETRY WITH DILATOR IF O BSTRUCTEDon 02-28-2023 ERV BOX (L) 1.76 L [facility] SYU00-12% PRE (L/S) 2.20 L/S [facility] FEV1 PRE (L) 2.82 L [facility] FEV1/FVC PRE (%) 74 % [facility] FRC Box (L) 4.02 L [facility] FVC PRE (L) 3.80 L [facility] IC BOX (L) 1.81 L [facility] PEF PRE (L/S) 5.19 L/S [facility] RV Box (L) 2.26 L [facility] RV/TLC Box (%) 39 % [facility] TLC Box (L) 5.84 L [facility] VC (L) BOX 3.73 L [facility] ESR Westergren method (Bld) [Velocity]on 12-12-2022 ESR (Bld) [Velocity] 2 mm/h 0 - 15 mm/hr [facility] HbA1c (Bld)on 12-12-2022 Average glucose Estimated from glycated hemoglobin (Bld) [Mass/Vol] 94 mg/dL [facility] HbA1c (Bld) [Mass fraction] 4.9 % 4.3 - 5.6 % [facility] Urinalysis complete panel (U )on 12-06-2022 Bilirubin Ql (U) Negative Negative [facility] Clarity (Unsp spec) Clear Clear [facility] Color (U) Yellow Yellow [facility] Epithelial cells LM.HPF (Urine sed) [#/Area] Few [facility] Glucose Test strip (U) [Mass/Vol] Negative Trace, Negative [facility] Hemoglobin Ql (U) Negative Negative, Trace [facility] Ketones Ql (U) Negative Trace, Negative [facility] Leukocyte esterase Test strip Ql (U) Negative Negative, 25 Amie/uL [facility] Nitrite Ql (U) Negative Negative [facility] pH (U) 6.5 [pH] 5.0 - 8.0 [facility] Protein (U) [Mass/Vol] Negative Trace, Negative [facility] RBC LM.HPF (Urine sed) [#/Area] 0-3 /HPF 0-3 /HPF [facility] Specific gravity (U) [Rel density] 1.017 1.005 - 1.030 [facility] Urobilinogen Ql (U) Negative Negative [facility] WBC LM.HPF (Urine sed) [#/Area] 0-5 /HPF 0-5 /HPF [facility] CBC W Auto Differential pane l (Bld)on 12-05-2022 Basophils (Bld) [#/Vol] 0.13 10*3/uL High <0.11 k/uL [facility] Basophils/100 WBC (Bld) 1.4 % [facility] Differential cell count method Nom (Bld) Auto [facility] Eosinophils (Bld) [#/Vol] 0.13 10*3/uL <0.46 k/uL [facility] Eosinophils/100 WBC (Bld) 1.4 % [facility] Erythrocyte distribution width (RBC) [Ratio] 13.7 % 11.5 - 15.0 % [facility] Hematocrit (Bld) [Volume fraction] 44.2 % 39.0 - 51.0 % [facility] Hemoglobin (Bld) [Mass/Vol] 15.2 g/dL 13.0 - 17.0 g/dL [facility] Immature granulocytes (Bld) [#/Vol] <0.10 k/uL [facility] Immature granulocytes/100 WBC (Bld) 0.2 % [facility] Lymphocytes (Bld) [#/Vol] 3.42 10*3/uL 1.00 - 4.00 k/uL [facility] Lymphocytes/100 WBC (Bld) 35.7 % [facility] MCH (RBC) [Entitic mass] 30.9 pg 26.0 - 34.0 pg [facility] MCHC (RBC) [Mass/Vol] 34.4 g/dL 30.5 - 36.0 g/dL [facility] MCV (RBC) [Entitic vol] 89.8 fL 80.0 - 100.0 fL [facility] Monocytes (Bld) [#/Vol] 0.58 10*3/uL <0.87 k/uL [facility] Monocytes/100 WBC (Bld) 6.0 % [facility] Neutrophils (Bld) [#/Vol] 5.31 10*3/uL 1.45 - 7.50 k/uL [facility] Neutrophils/100 WBC (Bld) 55.3 % [facility] Nucleated RBC (Bld) [#/Vol] <0.01 k/uL [facility] Nucleated RBC/100 WBC (Bld) [Ratio] 0.0 /100 WBC [facility] Platelet mean volume (Bld) [Entitic vol] 11.9 fL 9.0 - 12.7 fL [facility] Platelets (Bld) [#/Vol] 246 10*3/uL 150 - 400 k/uL [facility] RBC (Bld) [#/Vol] 4.92 10*6/uL 4.20 - 6.0 0 m/uL [facility] WBC (Bld) [#/Vol] 9.59 10*3/uL 3.70 - 11. 00 k/uL [facility] ANES POSTPROC EVALon 023 ANES POSTPROC EVAL HNO ID: [id number] Author: Orquidea Eaton APRN.ANGLE FURNACEMAN Service: Anesthesiology Author Type: Nurse Size Painter Type: Anesthesia Postprocedure Evaluation Filed: 08/09/2022 11:23 AM Note Text: POST ANESTHESIA EVALUATION NOTE : 1965 Procedure Summary Date: 08/09/22 Room / Location: SURGERY Anesthesia Start: 1100 Anesthesia Stop: 112 Procedure: EGD DIAGNOSTIC Diagnosis: Epigastric abdominal pain Scheduled Providers: Jennifer Shannon MD; Orquidea Eaton APRN.ANGLE FURNACEMAN Responsible Provider: Orquidea Eaton APRN.ANGLE FURNACEMAN Anesthesia Type: MAC ASA Status: 2 Anesthesia Type: MAC Last Vitals Vitals Value Taken Time BP 109/70 08/09/22 1115 Temp 36.5 ?C (97.7 ?F) 08/09/22 1052 Pulse 70 08/09/22 1115 Resp 16 08/09/22 1115 SpO2 99 % 08/09/22 1115 Post Anesthesia Patient Status Patient Evaluation: PACU. Anticipated Disposition: phase 2 then home. Neurological Status: sleepy but arousable. Pulmonary Status: breathing comfortably on room air Airway Control: returned to baseline unsupported. Cardiovascular Status: stable. Pain Management: clinically adequate Postoperative Hydration: acceptable. Intraoperative Events: no significant anesthesia events Post Operative Nausea/Vomiting Status: no significant post operative nausea or vomiting Recommendation: continue current plan of care. Anesthesia Observations No Documentation SIGNATURE: Orquidea Eaton APRN.CRNA PATIENT NAME: Justo Gusman DATE: August 09, 2022 TIME: 11:23 AM CSN: [id number] [facility] ANES PRE-OPon 08-09-2022 ANES PRE-OP HNO ID: [id number] Author: Orquidea Eaton APRN.AMBAR Service: Anesthesiology Author Type: Nurse Size Painter Type: Anesthesia Preprocedure Evaluation Filed: 08/09/2022 10:35 AM Note Text: ANESTHESIOLOGY DAY OF SURGERY NOTE : 1965 Procedure Information Date/Time: 08/09/22 1115 Scheduled providers: Jennifer Shannon MD; Orquidea Eaton APRN.AMBAR Procedure: EGD DIAGNOSTIC Location: LD SURGERY Estimated body mass index is 20.74 kg/m? as calculated from the following: Height as of 06/06/22: 167.6 cm (5' 6"). Weight as of 06/13/22: 58.3 kg (128 lb 8 oz). Most recent hematocrit and potassium results: Hematocrit 40.5 08/25/2021 Potassium 4.1 08/25/2021 Relevant Problems GI (+) GERD (gastroesophageal reflux disease) I - PHYSICAL EVALUATION AIRWAY Patient intubated: No. Tracheostomy tube not present Mallampati: II. TM distance: >3 FB. Neck ROM: full ROM without neurological symptoms. Mouth opening: adequate. Short neck: no. Thick neck: no Kim present: no Lip Bite Test: II Microretrognathia/Micronagthi a/Recessed Chin: No DENTAL Dental findings: teeth intact. Additional exam findings: no II - ANESTHESIA PLAN ASA Score: 2 Anesthetic Plan: MAC The patient is not a current smoker. NPO Status: adequate Beta Darwin Administration of chronic beta darwin medication not planned. Monitoring Plan Monitoring plan: standard ASA. Post Procedure Analgesic Plan Informed Consent Anesthetic risks, benefits, alternatives, personnel and consent discussed: yes. Patient / Responsible Republican agrees to proceed: yes Patient / Surrogate agrees to blood products: Yes DNR status reviewed with patient and/or family prior to surgery. patient elects to suspend DNR status in the perioperative setting (Full Code). Significant changes in the patient condition since the History and Physical, not otherwise documented in primary service progress note: no. Potential Anesthesia issues that may suggest increased risk of complications or contraindication to planned procedure: none. Discussed the possibility of lip / dental damage: yes No vitals data found for the desired time range. Outpatient Medications as of 08/09/2022 Medication Sig - gabapentin (NEURONTIN) 300 mg capsule Take 1 capsule by mouth twice daily for 90 days. - ARIPiprazole (ABILIFY) 10 mg tablet Take 1 tablet by mouth once daily. - SUMAtriptan (IMITREX) 50 mg tablet Take 1 tablet by mouth as needed. at onset of headache. May repeat after 2 hours.No more than 2 doses in 24 hours. No more than 10 doses in a month - topiramate (TOPAMAX) 25 mg tablet Take 1 tablet by mouth three times daily. Take three tablets at bedtime. - omeprazole (PRILOSEC) 20 mg capsule Take 1 capsule by mouth twice daily at 6AM and 9PM. - diclofenac (VOLTAREN ARTHRITIS PAIN) 1 % topical gel Apply 4 g to affected area four times daily. To knee - levETIRAcetam (KEPPRA) 500 mg tablet Take 1 tablet by mouth twice daily. - topiramate (TOPAMAX) 25 mg tablet Take 1 tab at bedtime x1 week. Then increase to 2 tabs at bedtime x1 week. Then increase to 3 tabs at bedtime and continue. - traZODone (DESYREL) 100 mg tablet Take 1 tablet by mouth daily at bedtime. - busPIRone (BUSPAR) 15 mg tablet Take 1 tablet by mouth three times daily. - simvastatin (ZOCOR) 20 mg tablet Take 1 tablet by mouth daily at bedtime. - oxybutynin (DITROPAN) 5 mg tablet Take 1 tablet by mouth three times daily. - ketoconazole (NIZORAL) 2 % shampoo Apply to affected area once daily as needed. - propranolol ER (INDERAL LA) 80 mg 24 hr capsule Take 1 capsule by mouth once daily. - propranolol (INDERAL) 10 mg tablet Take 1 tablet by mouth once daily. No current facility-administered medications on file as of 08/09/2022. I have interviewed and examined the patient. I have reviewed the medical record and/or the pre-anesthesia evaluation, pertinent labs, and test results. This contains updated information obtained within 48 hours of Surgery/Procedure. SIGNATURE: Orquidea Eaton APRN.CRNA PATIENT NAME: Justo Gusman DATE: August 09, 2022 TIME: 10:34 AM CSN: [id number] [facility] BRIEF OP NOTon 08-09-2022 BRIEF OP NOT HNO ID: [id number] Author: Jennifer Shannon MD Service: General Surgery Author Type: Physician Type: Brief Op Note Filed: 08/09/2022 11:18 AM Note Text: BRIEF OPERATIVE NOTE SURGERY DATE: 08/09/2022 Incision/Procedure Start Time: 11:04 Incision Close/Procedure End Time: 11:14 Surgeon(s)/Proceduralist(s) and Lacing String Cutter(s): francois Procedures: Esophagogastroduodenoscopy with biopsies Anesthesia: MAC Findings: retained solid food within stomach (bezoars), poor clearance of esophagus and stomach, could not visualize stomach in its entirety due to retained food, no evidence of bleeding in stomach Estimated Blood Loss: < 1 ml Specimens: mucosal biopsies of the following: second portion of duodenum, antrum of stomach, GE junction Complications: None Closure Technique: NA Preop Diagnosis: epigastric abdominal pain Postop Diagnosis: retained food in stomach, irregular z-line SIGNATURE: Jennifer Shannon MD PATIENT NAME: Justo Gusman DATE: August 09, 2022 TIME: 11:15 AM Acct: [id number] [facility] HISTORY PHYSICALon HISTORY PHYSICAL HNO ID: [id number] Author: Jennifer Shannon MD Service: General Surgery Author Type: Physician Type: HANDP Filed: 08/09/2022 10:34 AM Note Text: HISTORY AND PHYSICAL Justo Gusman 1965 REFERRING PHYSICIAN: Sung Crowe MD CHIEF COMPLAINT: Consult (GERD without esophagitis) HPI: The patient is a 56 year old male referred for endoscopy. Justo notes "stomach issues". He points to epigastric abdominal pain and dyspepsia He had EGD/colonoscopy in 2019, normal EGD, findings of sigmoid colon tubular adenoma for which he will require surveillance colonoscopy in 2023. He has occasional TOB and ETOH use. Denies dypshagia Can't chew food well, due to jaw dysfunction. Denies losing weight His father had gastric ulcers. He turns down his favorite foods because his "stomach hurts" PAST MEDICAL HISTORY Diagnosis Date Anxiety Bipolar disorder (HCC) Chronic lower back pain Developmental delay sister has guardianship GERD (gastroesophageal reflux disease) Hyperlipidemia Insomnia Paranoid schizophrenia (HCC) Tobacco use Tremors of nervous system Urinary incontinence PAST SURGICAL HISTORY Procedure Laterality Date COLONOSCOPY FLX DX W/COLLJ SPEC WHEN PFRMD 07/15/2018 Colonoscopy ESOPHAGOGASTRODUODENOSCOPY TRANSORAL DIAGNOSTIC 07/15/2018 EGD PAST SURGICAL HISTORY OF nasal surgery as child TONSILLECTOMY HX Current Outpatient Medications Medication Sig omeprazole (PRILOSEC) 20 mg capsule Take 1 capsule by mouth twice daily at 6AM and 9PM. diclofenac (VOLTAREN ARTHRITIS PAIN) 1 % topical gel Apply 4 g to affected area four times daily. To knee ARIPiprazole (ABILIFY) 10 mg tablet Take 1 tablet by mouth once daily. gabapentin (NEURONTIN) 300 mg capsule Take 1 capsule by mouth twice daily for 90 days. levETIRAcetam (KEPPRA) 500 mg tablet Take 1 tablet by mouth twice daily. topiramate (TOPAMAX) 25 mg tablet Take 1 tab at bedtime x1 week. Then increase to 2 tabs at bedtime x1 week. Then increase to 3 tabs at bedtime and continue. traZODone (DESYREL) 100 mg tablet Take 1 tablet by mouth daily at bedtime. busPIRone (BUSPAR) 15 mg tablet Take 1 tablet by mouth three times daily. simvastatin (ZOCOR) 20 mg tablet Take 1 tablet by mouth daily at bedtime. oxybutynin (DITROPAN) 5 mg tablet Take 1 tablet by mouth three times daily. ketoconazole (NIZORAL) 2 % shampoo Apply to affected area once daily as needed. propranolol ER (INDERAL LA) 80 mg 24 hr capsule Take 1 capsule by mouth once daily. propranolol (INDERAL) 10 mg tablet Take 1 tablet by mouth once daily. ALLERGIES: Bee Sting and Penicillin PERSONAL HISTORY: Social History Tobacco Use Smoking status: Former Packs/day: 0.75 Years: 40.00 Pack years: 30.00 Types: Cigarettes Start date: 08/27/1977 Quit date: 06/25/2017 Years since quittin.9 Smokeless tobacco: Never Substance Use Topics Alcohol use: Yes Alcohol/week: 2.5 standard drinks Types: 1 Cans of Beer (12oz) per week Drug use: No FAMILY HISTORY Problem Relation Age of Onset Diabetes Mother Cancer Mother lung Cancer Father lung other (cancer) Father stomach The review of systems data was entered by the nurse and reviewed by me Nursing Notes: Arnulfo Tejada LPN 06/06/2022 4:19 PM Signed REVIEW OF SYSTEMS: General: The patient denies fatigue, denies weight loss, denies weight gain, denies feeling hot, and denies feelings of cold. Eyes: The patient denies glaucoma, denies eye injury/surgery, wears glasses or contacts. Ear/Nose/Throat: The patient NOTES allergies, denies hayfever, denies ear infections, and denies bloody noses. Cardiovascular: The patient denies chest pain, denies heart disease, denies high blood pressure,denies cardiac stent, denies prior heart attack, denies irregular heart beat, NOTES high cholesterol, denies poor circulation, denies heart failure, other cardiac issues, denies claudication, denies cold feet, denies peripheral arterial stent. Respiratory: The patient denies tuberculosis, denies pneumonia, denies frequent cough, denies pulmonary embolism, denies shortness of breath, and denies coughing up blood. Gastrointestinal: The patient denies difficulty swallowing, NOTES acid reflux, denies ulcers, denies vomiting, denies jaundice/hepatitis, denies gallbladder problems, denies black or tarry stools, denies hemorrhoids, denies bleeding from rectum, denies diverticulitis, denies constipation, denies diarrhea, denies loss of stool control, and denies hernias. Kidney/Bladder: The patient denies kidney stones, denies urine infections, and denies bloody urine. Skin: The patient denies a history of skin cancer, denies bleeding/changing moles, and denies a history of skin rash. Neurologic: The patient denies a history of epilepsy/convulsions, denies headaches, denies head/spinal injuries, and denies stroke/TIA. Psychiatric: The patient NOTES psychiatric medications (more content not included)... Normal [facility] NURSING PROGon 08-09-2022 NURSING PROG HNO ID: [id number] Author: Maggie Donald RN Service: Nursing Author Type: Registered Nurse Type: Nursing Progress Note Filed: 08/09/2022 12:03 PM Note Text: Patient requesting something to drink. Patient discharge instruction given to family caregiver. Patient verbalized no pain, and states he is "waking up" and now realizing where he is at. Patient vitals within normal limits. IV removed no signs or symptoms of infiltration. Patient family verbalized understanding of verbal/paper instruction given. Patient ambulated and dressed without problems. Patient given instruction on activity and diet for the day-patient verbalized understanding. [facility] OPERATIVE NOon 08-09-2022 OPERATIVE NO HNO ID: [id number] Author: Jennifer Shannon MD Service: General Surgery Author Type: Physician Type: Operative Report Filed: 08/10/2022 7:35 AM Note Text: [facility] - Operative Report - JUSTO Cruz : 1965 AGE: 56. SEX: M PAT[place] [facility] [place] ATTENDING PHYSICIAN: ORQUIDEA EATON [facility] NUMBER: [id number] DATE OF SURGERY/PROCEDURE: 08/09/2022 INCISION/PROCEDURE START TIME: 1104 INCISION CLOSE/PROCEDURE END TIME: 1114 PREOPERATIVE DIAGNOSIS: Epigastric abdominal pain. POSTOPERATIVE DIAGNOSIS: Gastroparesis and presence of bezoars. There was retained food in stomach and minimally irregular Z-line. SURGEON: Jennifer Shannon MD INDUSTRIAL ENGINEERING: No Additional Staff SURGERY/PROCEDURE: Esophagogastroduodenoscopy with biopsies. ANESTHESIA: Monitored anesthesia care. LOCATION: [facility]. INDICATIONS: Justo Gusman is a 56-year-old white male, who presents with complaints of dyspepsia and epigastric abdominal pain. He presents for evaluation with esophagogastroduodenoscopy. He denies dysphagia. He states that he cannot chew his food well due to jaw dysfunction. He denied weight loss. He has been counseled for esophagogastroduodenoscopy. He has been counseled of the risks of procedure including, but not limited to, infection, bleeding, perforation, GI tract, etc. The patient understands and agrees to proceed. DESCRIPTION OF PROCEDURE: After informed consent was given, the patient was brought to the endoscopy suite. Appropriate time-out protocol was done in the procedure suite. The patient's pharynx was anesthetized with local anesthesia. A bite block was placed. The patient was placed in left lateral decubitus position. He was then given anesthesia by the anesthesia provider. The upper endoscope was lubricated and carefully inserted in the patient's mouth and advanced into the esophagus. It was then advanced down the esophagus into the stomach, past the pylorus into the first and second portion of the duodenum. Because of the patient's complaint - mucosal biopsies were taken of this area with cold grasper forceps. No masses, polyps, or lesions were noted in the duodenum. The endoscope was retracted back in the stomach. In the stomach, the patient was noted to have retained solid food consistent with bezoars. There were no obvious masses or lesions noted in the stomach. However, visualization behind the retained food was impossible due to the inability to aspirate the remnant food as there is a large amount and limited by the size of the suction port. The mucosal biopsies of the antrum and the stomach were taken to rule out H pylori. The retroflexed view of the cardia of the stomach revealed no evidence of any hiatal hernia. The endoscope was retracted back into the esophagus. The GE junction appeared minimally irregular and mucosal biopsies were taken using cold grasper forceps. The remainder of the esophagus was grossly normal. However, there were remnant small food particles in the esophagus consistent with a poor esophageal clearance. No masses, polyps, or ulcers were noted in the esophagus. The endoscope was removed intact. The patient tolerated the procedure well. He was brought to recovery room in stable condition. ESTIMATED BLOOD LOSS: Less than 1 mL. SPECIMEN: Mucosal biopsy of the second portion of the duodenum, antrum of stomach, and GE junction. COMPLICATIONS: None. Jennifer Shannon MD [id number] Normal [facility] SURGICAL PATHOLOGYon 023 CASE REPORT Normal [facility] Comment on above: Order Comment: Speci men Type: TISSUE SPECIMEN Ordering Facility: [facility] Address: [address] [place] [id number] Result Comment: Surg ica Pathology Report Case: [id number] Authorizing Provider: Jennifer Shannon MD Collected: 08/09/2022 11:07 AM Ordering Location: SURGERY Received: 08/10/2022 10:36 AM Pathologist: Tyler Thomas MD Specimens: A) - DUODENUM BIOPSY, second portion of duodenum B) - ANTRUM (STOMACH) BIOPSY C) - ESOPHAGOGASTRIC JUNCTION BIOPSY Performed By: #### S #### [facility] CLIA [id number] [address] CLINICAL HISTORY Epigastric abdominal pain Normal [facility] Comment on above: Order Comment: Speci men Type: TISSUE SPECIMEN Ordering Facility: [facility] Address: [address] [place] [address] Performed By: #### S #### [facility] CLIA [id number] [address] [place] [address] DIAGNOSIS COMMENT There is no evidence of intestinal metaplasia in the gastroesophageal junction biopsy. Normal [facility] Comment on above: Order Comment: Speci men Type: TISSUE SPECIMEN Ordering Facility: [facility] Address: [address] [place] [address] Performed By: #### S #### [facility] CLIA [id number] [address] [place] [address] FINAL DIAGNOSIS Normal [facility] Comment on above: Order Comment: Speci men Type: TISSUE SPECIMEN Ordering Facility: [facility] Address: [address] [place] [address] Result Comment: A. D uodenum, second portion, biopsy: - No pathologic abnormalities. B. Stomach, antrum, biopsy: - Benign duodenal and gastric mucosa showing no pathologic abnormalities. C. Gastroesophageal junction, biopsy: - Acute and chronic inflammation. See comment. Performed By: #### S #### [facility] CLIA [id number] [address] FINAL PERFORMING LAB Normal [facility] Comment on above: Order Comment: Speci men Type: TISSUE SPECIMEN Ordering Facility: [facility] Address: [place] [address] Result Comment: Diag nostic interpretation performed at [facility], [address] [place] [address] CLIA# [id number] E Business Specialist: Tyler Thomas M.D. Performed By: #### S #### [facility] CLIA [id number] [address] [place] [address] OF [facility] GROSS DESCRIPTION Normal [facility] Comment on above: Order Comment: Speci men Type: TISSUE SPECIMEN Ordering Facility: [facility] Address: [address] [id number] Result Comment: A. D UODENUM BIOPSY A. Received in formalin labeled "second portion of duodenum biopsy" is a wren soft segment of tissue measuring 0.3 x 0.3 x 0.1 cm. The specimen is totally submitted in formalin in 1 cassette. B. ANTRUM (STOMACH) BIOPSY B. Received in formalin labeled "antrum stomach biopsy" are multiple wren soft segments of tissue aggregating to 0.3 x 0.3 x 0.1 cm. The specimens are totally submitted in formalin in 1 cassette. C. ESOPHAGOGASTRIC JUNCTION BIOPSY C. Received in formalin labeled "esophagogastric junction biopsy" is an irregular white soft segment of tissue measuring 0.5 x 0.3 by less than 0.1 cm. The specimen is totally submitted in formalin in 1 cassette. Gross examination performed at [facility], [address] [place] [address] KVB August 10, 2022 11:37 AM Performed By: #### S #### [facility] CLIA [id number] [address] [place] [address] XR Knee - left 4 Viewson IMPRESSION: No acute fracture. Degenerative disease of the left knee. Resistor Winder: LUZ MARINA Transcribe Date/Time: Dec 22 2021 3:22P Dictated by : BRANDON WHITE MD This examination was interpreted and the report reviewed and electronically signed by: BRANDON WHITE MD on Dec 22 2021 3:29PM [facility] DIVISION OF RADIOLOGY * * *Final Report* * * DATE OF EXAM: Dec 22 2021 11:42AM WOX 5202 - XR KNEE 4V AP/PA BOTH+LAT/GHAZALA LT / PROCEDURE REASON: multiple diagnoses * * * * Physician Interpretation * * * * EXAMINATION: XR KNEE 4V AP/PA BOTH+LAT/GHAZALA LT CLINICAL HISTORY: Left knee pain Technique: XR KNEE 4V AP/PA BOTH+LAT/GHAZALA LT -- LEFT with 4 views on 4 images Comparison: None RESULT: There is alignment of the knees. Narrowing of the medial compartment of the left knee with subchondral sclerosis. No acute fracture or dislocation. Linear metallic density projects over the medial right femoral condyle. DIVISION OF RADIOLOGY Provider, [facility] - 12/22/2021 * * *Final Report* * * DATE OF EXAM: Dec 22 2021 11:42AM WOX 5202 - XR KNEE 4V AP/PA BOTH+LAT/GHAZALA LT / PROCEDURE REASON: multiple diagnoses * * * * Physician Interpretation * * * * EXAMINATION: XR KNEE 4V AP/PA BOTH+LAT/GHAZALA LT CLINICAL HISTORY: Left knee pain Technique: XR KNEE 4V AP/PA BOTH+LAT/GHAZALA LT -- LEFT with 4 views on 4 images Comparison: None RESULT: There is alignment of the knees. Narrowing of the medial compartment of the left knee with subchondral sclerosis. No acute fracture or dislocation. Linear metallic density projects over the medial right femoral condyle. IMPRESSION IMPRESSION: No acute fracture. Degenerative disease of the left knee. Resistor Winder: LUZ MARINA Transcribe Date/Time: Dec 22 2021 3:22P Dictated by : BRANDON WHITE MD This examination was interpreted and the report reviewed and electronically signed by: BRANDON WHITE MD on Dec 22 2021 3:29PM EST [facility] Radiology Study observation (narrative) [facility] XR Knee - left 4 ViewsOrdere d By: [facility] Provider on 12-22-2021 [facility] XR Shoulder - right 3 Viewso n 08-26-2021 IMPRESSION: Negative Resistor Winder: PSCB Transcribe Date/Time: Aug 26 2021 9:50P Dictated by : JUSTO PUENTES MD This examination was interpreted and the report reviewed and electronically signed by: JUSTO PUENTES MD on Aug 26 2021 9:51PM EST DURAN_DO_NOT_U SE_DIVISION OF RADIOLOGY * * *Final Report* * * DATE OF EXAM: Aug 25 2021 4:01PM WOX 5253 - XR SHLDR >/=3V AP/VESTA AP/OTHR RT / PROCEDURE REASON: Acute pain of right shoulder * * * * Physician Interpretation * * * * PROCEDURE: Right shoulder INDICATION: Acute pain of right shoulder .Anterior right shoulder pain following a fall x 1 month ago TECHNIQUE: XR SHLDR >/=3V AP/VESTA AP/OTHR RT COMPARISON: None FINDINGS: No fractures or dislocations are seen. The glenohumeral and acromioclavicular joints are within normal limits. Subacromial space is maintained. No significant degenerative change is seen. No soft tissue calcifications are seen. Upper ribs are intact. ZZZ_DO_NOT_U SE_DIVISION OF RADIOLOGY Provider, [facility] - 08/26/2021 * * *Final Report* * * DATE OF EXAM: Aug 25 2021 4:01PM WOX 5253 - XR SHLDR >/=3V AP/VESTA AP/OTHR RT / PROCEDURE REASON: Acute pain of right shoulder * * * * Physician Interpretation * * * * PROCEDURE: Right shoulder INDICATION: Acute pain of right shoulder .Anterior right shoulder pain following a fall x 1 month ago TECHNIQUE: XR SHLDR >/=3V AP/VESTA AP/OTHR RT COMPARISON: None FINDINGS: No fractures or dislocations are seen. The glenohumeral and acromioclavicular joints are within normal limits. Subacromial space is maintained. No significant degenerative change is seen. No soft tissue calcifications are seen. Upper ribs are intact. IMPRESSION IMPRESSION: Negative Resistor Winder: PSCB Transcribe Date/Time: Aug 26 2021 9:50P Dictated by : JUSTO PUENTES MD This examination was interpreted and the report reviewed and electronically signed by: JUSTO PUENTES MD on Aug 26 2021 9:51PM EST [facility] XR Shoulder - right 3 ViewsO rdered By: [facility] Provider on 08-26-2021 [facility] XR Shoulder - right 3 Viewso n 08-25-2021 Radiology Study observation (narrative) [facility] METABOLIC PANE Idris 10-18-2016 Albumin 4.2 g/dL Normal 3.5-4.8 [facility] Comment on above: Performed By: #### L DLD, MOP ####[facility] [id number] [place] [address] Albumin/Globulin Ratio 1.8 {ratio} Normal 0.9-2.0 [facility] Comment on above: Performed By: #### L DLD, MOP ####[facility] [id number] [place] [address] Alkaline phosphatase (ALP) 55 U/L Normal 38-126 [facility] Comment on above: Performed By: #### L DLD, MOP ####[facility] [id number] [place] [address] ALT/SGPT 27 IU/L Normal 17-63 [facility] Comment on above: Performed By: #### L DLD, MOP ####[facility] [id number] [place] [address] Anion gap 12.7 mmol/L Normal 8-22 [facility] Comment on above: Performed By: #### L DLD, MOP ####[facility] [id number] [place] [address] AST/SGOT 23 IU/L Normal 15-41 [facility] Comment on above: Performed By: #### L DLD, MOP ####[facility] [id number] [place] [address] Bilirubin (total) 0.5 mg/dL Normal 0.4-2.0 [facility] Comment on above: Performed By: #### L DLD, MOP ####[facility] [id number] [place] [address] BUN (urea nitrogen) 13 mg/dL Normal 8-20 [facility] Comment on above: Performed By: #### L DLD, MOP ####[facility] [id number] [place] [address] BUN/Creatinine Ratio 16.7 mg/mg Normal 6-20 [facility] Comment on above: Performed By: #### L DLD, MOP ####[facility] [id number] [place] [address] Calcium 9.3 mg/dL Normal 8.9-10.3 [facility] Comment on above: Performed By: #### L DLD, MOP ####[facility] [id number] [place] [address] Chloride 102 mmol/L Normal 101-111 [facility] Comment on above: Performed By: #### L DLD, MOP ####[facility] [id number] [place] [address] CO2 26 mmol/L Normal 22-32 [facility] Comment on above: Performed By: #### L DLD, MOP ####[facility] [id number] [place] [address] Creatinine 0.78 mg/dL Normal 0.70-1.20 [facility] Comment on above: Performed By: #### L DLD, MOP ####[facility] [id number] [place] [address] eGFR (non-black) mL/min/{1.73_m2} Normal [facility] Comment on above: Result Comment: TO E STIMATE GFR FOR AMERICANS MULTIPLY THE RESULT BY1.21.GFR LESS THAN 60 mL/min/1.73m2: SUGGESTIVE OF CHRONIC KIDNEYDISEASE.GFR LESS THAN 15 mL/min/1.73m2: SUGGESTIVE OF END STAGERENAL DISEASE. Performed By: #### L DLD, MOP ####[facility] [id number] [place] [address] Globulin 2.4 G/dL Normal [facility] Comment on above: Performed By: #### L DLD, MOP ####[facility] [id number] [place] [address] Glucose mass conc 99 mg/dL Normal 74-118 [facility] Comment on above: Performed By: #### L DLD, MOP ####[facility] [id number] [place] [address] Osmolality 274 mOSM/kg Low 275-305 [facility] Comment on above: Performed By: #### L DLD, MOP ####[facility] [id number] [place] [address] Potassium molar conc 3.7 mmol/L Normal 3.6-5.1 [facility] Health Comment on above: Performed By: #### L DLD, MOP ####[facility] [id number] [place] [address] Protein 6.6 G/dL Normal 6.1-7.9 [facility] Comment on above: Performed By: #### L DLD, MOP ####[facility] [id number] [place] [address] SGOT/SGPT RATIO 0.9 Normal 0-2 [facility] Comment on above: Performed By: #### L DLD, MOP ####[facility] [id number] [place] [address] Sodium 137 mmol/L Normal 136-144 [facility] Comment on above: Performed By: #### L DLD, MOP ####[facility] [id number] [place] [address] LDL CHOLESTEROL(DIRECT)on LDL Cholesterol 65 mg/dL Normal 10-130 [facility] Comment on above: Performed By: #### L DLD, MOP ####[facility] [id number] [place] [address] Vital Signs Date Time Vital Sign Value Performing Clinician Facility 10-13-2024 23:46-0400 Body temperature 98.8 [degF] Dr. Sung Crowe MD Work Phone: [facility] 10-13-2024 23:46-0400 Diastolic blood pressure 77 mm[Hg] Dr. Sung Crowe MD Work Phone: [facility] 10-13-2024 23:46-0400 Heart rate 61 /min Dr. Sung Crowe MD Work Phone: [facility] 10-13-2024 23:46-0400 Respiratory rate 18 /min Dr. Sung Crowe MD Work Phone: [facility] 10-13-2024 23:46-0400 SaO2% (BldA) [Mass fraction] 97 % Dr. Sung Crowe MD Work Phone: [facility] 10-13-2024 23:46-0400 Systolic blood pressure 135 mm[Hg] Dr. Sung Crowe MD Work Phone: [facility] 10-13-2024 20:15-0400 Body height 167.[address] Sung Crowe MD Work Phone: [facility] 10-13-2024 20:15-0400 Body mass index (BMI) [Ratio] 19.2 kg/m2 Dr. Sung Crowe MD Work Phone: [facility] 10-13-2024 20:15-0400 Body weight [address] Sung Crowe MD Work Phone: [facility] 07-02-2024 17:17-0400 Body mass index (BMI) [Ratio] 18.91 kg/m2 Katty Kemp APRN.SALES AND MARKETING EXECUTIVE Work Phone: [facility] 07-02-2024 17:17-0400 Body temperature 97.81 [degF] Katty Kemp APRN.SALES AND MARKETING EXECUTIVE Work Phone: [facility] 07-02-2024 17:17-0400 Body weight 52.1 kg Katty Kemp APRN.SALES AND MARKETING EXECUTIVE Work Phone: [facility] 07-02-2024 17:17-0400 Diastolic blood pressure 72 mm[Hg] Katty Kemp APRN.SALES AND MARKETING EXECUTIVE Work Phone: [facility] 07-02-2024 17:17-0400 Heart rate 46 /min Katty Kemp APRN.SALES AND MARKETING EXECUTIVE Work Phone: [facility] 07-02-2024 17:17-0400 Respiratory rate 18 /min Katty Kemp APRN.SALES AND MARKETING EXECUTIVE Work Phone: [facility] 07-02-2024 17:17-0400 SaO2% (BldA) [Mass fraction] 100 % Katty Kemp APRN.SALES AND MARKETING EXECUTIVE Work Phone: [facility] 07-02-2024 17:17-0400 Systolic blood pressure 112 mm[Hg] Katty Kemp [employer] SALES AND SERVICE SUPERVISOR.SALES AND MARKETING EXECUTIVE Work Phone: [facility] 04-13-2024 11:57-0500 Body mass index (BMI) [Ratio] 19.09 kg/m2 Janey Suppan MARINA SALES AND SERVICE SUPERVISOR.SALES AND MARKETING EXECUTIVE Work Phone: [facility] 04-13-2024 11:57-0500 Body weight 52.62 kg Janey Suppan [employer]INA SALES AND SERVICE SUPERVISOR.SALES AND MARKETING EXECUTIVE Work Phone: [facility] 04-13-2024 11:57-0500 Diastolic blood pressure 68 mm[Hg] Janey Suppan MARINA SALES AND SERVICE SUPERVISOR.SALES AND MARKETING EXECUTIVE Work Phone: [facility] 04-13-2024 11:57-0500 Heart rate 60 /min Janey Suppan MARINA SALES AND SERVICE SUPERVISOR.SALES AND MARKETING EXECUTIVE Work Phone: [facility] 04-13-2024 11:57-0500 Respiratory rate 16 /min Janey Suppan [employer]INA SALES AND SERVICE SUPERVISOR.SALES AND MARKETING EXECUTIVE Work Phone: [facility] 04-13-2024 11:57-0500 SaO2% (BldA) [Mass fraction] 95 % Jaeny Suppan MARINA SALES AND SERVICE SUPERVISOR.SALES AND MARKETING EXECUTIVE Work Phone: [facility] 04-13-2024 11:57-0500 Systolic blood pressure 120 mm[Hg] Janey Suppan MARINA SALES AND SERVICE SUPERVISOR.SALES AND MARKETING EXECUTIVE Work Phone: [facility] 03-06-2024 08:12-0500 Body mass index (BMI) [Ratio] 17.98 kg/m2 Sung Glynn Jr., MD Work Phone: [facility] 03-06-2024 08:12-0500 Body weight 49.53 kg Sung Glynn Jr., MD Work Phone: [facility] 03-06-2024 08:12-0500 Diastolic blood pressure 75 mm[Hg] Sung Glynn Jr., MD Work Phone: [facility] 03-06-2024 08:12-0500 Heart rate 64 /min Sung Glynn Jr., MD Work Phone: [facility] 03-06-2024 08:12-0500 SaO2% (BldA) [Mass fraction] 96 % Sung Glynn Jr., MD Work Phone: [facility] 03-06-2024 08:12-0500 Systolic blood pressure 118 mm[Hg] Sung Glynn Jr., MD Work Phone: [facility] 09-04-2023 11:19-0400 Body mass index (BMI) [Ratio] 20.12 kg/m2 Stella Queener PA-C Work Phone: [facility] 09-04-2023 11:19-0400 Body weight 55.43 kg Stella Queener PA-C Work Phone: [facility] 09-04-2023 11:19-0400 Diastolic blood pressure 66 mm[Hg] Stella Queener PA-C Work Phone: [facility] 09-04-2023 11:19-0400 Heart rate 52 /min Stella Queener PA-C Work Phone: [facility] 09-04-2023 11:19-0400 Respiratory rate 18 /min Stella Queener PA-C Work Phone: [facility] 09-04-2023 11:19-0400 SaO2% (BldA) [Mass fraction] 100 % Stella Queener PA-C Work Phone: [facility] 09-04-2023 11:19-0400 Systolic blood pressure 109 mm[Hg] Stella Queener PA-C Work Phone: [facility] 07-03-2023 13:03-0400 Body weight 54.43 kg Monica Haagen MARINA SALES AND SERVICE SUPERVISOR.SALES AND MARKETING EXECUTIVE Work Phone: [facility] 07-03-2023 13:03-0400 Diastolic blood pressure 72 mm[Hg] Monica Haagen MARINA SALES AND SERVICE SUPERVISOR.SALES AND MARKETING EXECUTIVE Work Phone: [facility] 07-03-2023 13:03-0400 Heart rate 56 /min Monica Haagen MARINA SALES AND SERVICE SUPERVISOR.SALES AND MARKETING EXECUTIVE Work Phone: [facility] 07-03-2023 13:03-0400 Respiratory rate 16 /min Monica Walker MARINA SALES AND SERVICE SUPERVISOR.SALES AND MARKETING EXECUTIVE Work Phone: [facility] 07-03-2023 13:03-0400 Systolic blood pressure 122 mm[Hg] Monica Walker MARINA SALES AND SERVICE SUPERVISOR.SALES AND MARKETING EXECUTIVE Work Phone: [facility] 02-28-2023 09:20-0500 Body height 166 cm Pulm Wstr Work Phone: [facility] 02-28-2023 09:20-0500 Body weight 52.62 kg Pulm Wstr Work Phone: [facility] 02-20-2023 16:28-0400 Body height 167.6 cm Sung Crowe MD Work Phone: [facility] 02-20-2023 16:28-0400 Body weight 53.34 kg Sung Crowe MD Work Phone: [facility] 02-20-2023 16:28-0400 Diastolic blood pressure 64 mm[Hg] Sung Crowe MD Work Phone: [facility] 02-20-2023 16:28-0400 Heart rate 64 /min Sung Crowe MD Work Phone: [facility] 02-20-2023 16:28-0400 SaO2% (BldA) [Mass fraction] 99 % Sung Crowe MD Work Phone: [facility] 02-20-2023 16:28-0400 Systolic blood pressure 104 mm[Hg] Sung Crowe MD Work Phone: [facility] 12-12-2022 11:16-0400 Body weight 53.8 kg Stella Lopez PA-C Work Phone: [facility] 12-12-2022 11:16-0400 Diastolic blood pressure 69 mm[Hg] Stella Lopez PA-C Work Phone: [facility] 12-12-2022 11:16-0400 Heart rate 47 /min Stella Lopez PA-C Work Phone: [facility] 12-12-2022 11:16-0400 Respiratory rate 18 /min Stella Lopez PA-C Work Phone: [facility] 12-12-2022 11:16-0400 SaO2% (BldA) [Mass fraction] 98 % Stella Lopez PA-C Work Phone: [facility] 12-12-2022 11:16-0400 Systolic blood pressure 105 mm[Hg] Stella Lopez PA-C Work Phone: [facility] 12-05-2022 16:07-0400 Body height 167.6 cm Sung Crowe MD Work Phone: [facility] 12-05-2022 16:07-0400 Body weight 52.53 kg Sung Crowe MD Work Phone: [facility] 12-05-2022 16:07-0400 Diastolic blood pressure 58 mm[Hg] Sung Crowe MD Work Phone: [facility] 12-05-2022 16:07-0400 Heart rate 60 /min Sung Crowe MD Work Phone: [facility] 12-05-2022 16:07-0400 SaO2% (BldA) [Mass fraction] 99 % Sung Crowe MD Work Phone: [facility] 12-05-2022 16:07-0400 Systolic blood pressure 92 mm[Hg] Sung Crowe MD Work Phone: [facility] 08-09-2022 11:50-0400 Diastolic blood pressure 70 mm[Hg] Jennifer Shannon MD Work Phone: [facility] 08-09-2022 11:50-0400 Heart rate 58 /min Jennifer Shannon MD Work Phone: [facility] 08-09-2022 11:50-0400 Respiratory rate 15 /min Jennifer Shannon MD Work Phone: [facility] 08-09-2022 11:50-0400 SaO2% (BldA) [Mass fraction] 100 % Jennifer Shannon MD Work Phone: [facility] 08-09-2022 11:50-0400 Systolic blood pressure 113 mm[Hg] Jennifer Shannon MD Work Phone: [facility] 08-09-2022 11:25-0400 Body temperature 97.3 [degF] Jennifer Shannon MD Work Phone: [facility] 06-13-2022 11:20-0500 Body temperature 97.3 [degF] Stella Queener PA-C Work Phone: [facility] 06-13-2022 11:20-0500 Body weight 58.29 kg Stella Queener PA-C Work Phone: [facility] 06-13-2022 11:20-0500 Diastolic blood pressure 73 mm[Hg] Stella Queener PA-C Work Phone: [facility] 06-13-2022 11:20-0500 Heart rate 50 /min Stella Queener PA-C Work Phone: [facility] 06-13-2022 11:20-0500 Respiratory rate 16 /min Stella Queener PA-C Work Phone: [facility] 06-13-2022 11:20-0500 SaO2% (BldA) [Mass fraction] 96 % Stella Queener PA-C Work Phone: [facility] 06-13-2022 11:20-0500 Systolic blood pressure 116 mm[Hg] Stella Queener PA-C Work Phone: [facility] 06-06-2022 16:11-0500 Body height 167.6 cm Jennifer Shannon MD Work Phone: [facility] 06-06-2022 16:11-0500 Body temperature 97.5 [degF] Jennifer Shannon MD Work Phone: [facility] 06-06-2022 16:11-0500 Body weight 57.24 kg Jennifer Shannon MD Work Phone: [facility] 06-06-2022 16:11-0500 Diastolic blood pressure 84 mm[Hg] Jennifer Shannon MD Work Phone: [facility] 06-06-2022 16:11-0500 Heart rate 71 /min Jennifer Shannon MD Work Phone: [facility] 06-06-2022 16:11-0500 SaO2% (BldA) [Mass fraction] 100 % Jennifer Shannon MD Work Phone: [facility] 06-06-2022 16:11-0500 Systolic blood pressure 122 mm[Hg] Jennifer Shannon MD Work Phone: [facility] 05-30-2022 15:49-0500 Body height 167.6 cm Sung Crowe MD Work Phone: [facility] 05-30-2022 15:49-0500 Body weight 57.15 kg Sung Crowe MD Work Phone: [facility] 05-30-2022 15:49-0500 Diastolic blood pressure 62 mm[Hg] Sung Crowe MD Work Phone: [facility] 05-30-2022 15:49-0500 Heart rate 51 /min Sung Crowe MD Work Phone: [facility] 05-30-2022 15:49-0500 SaO2% (BldA) [Mass fraction] 99 % Sung Crowe MD Work Phone: [facility] 05-30-2022 15:49-0500 Systolic blood pressure 102 mm[Hg] Sung Crowe MD Work Phone: [facility] 12-22-2021 10:42-0400 Body weight 58.51 kg Sung Crowe MD Work Phone: [facility] 12-22-2021 10:42-0400 Diastolic blood pressure 62 mm[Hg] Sung Crowe MD Work Phone: [facility] 12-22-2021 10:42-0400 Heart rate 56 /min Sung Crowe MD Work Phone: [facility] 12-22-2021 10:42-0400 Systolic blood pressure 98 mm[Hg] Sung Crowe MD Work Phone: [facility] 08-25-2021 14:59-0400 Body weight 59.69 kg Sung Crowe MD Work Phone: [facility] 08-25-2021 14:59-0400 Diastolic blood pressure 72 mm[Hg] Sung Crowe MD Work Phone: [facility] 08-25-2021 14:59-0400 Heart rate 71 /min Sung Crowe MD Work Phone: [facility] 08-25-2021 14:59-0400 Respiratory rate 16 /min Sung Crowe MD Work Phone: [facility] 08-25-2021 14:59-0400 Systolic blood pressure 104 mm[Hg] Sung Crowe MD Work Phone: [facility] Encounters Encounter Date Encounter Type Care Provider Facility Start: 10-31-2024 End: 10-31-2024 Telephone encounter Sung Crowe MD Work Phone: [facility] [place] Comment on above: Patient Update; Appo intment Start: 10-13-2024 End: 10-13-2024 Emergency department patient visit Dr. Sung Crowe MD Work Phone: -Emergency Department Work Phone: Start: 08-21-2024 End: 08-21-2024 Refill Sung Glynn MD Work Phone: Neurology Comment on above: Refill Request Start: 08-06-2024 End: 08-10-2024 Telephone encounter Sung Crowe MD Work Phone: [facility] Comment on above: Appointment; Patient Update Start: 07-29-2024 End: 07-29-2024 ambulatory Sung Crowe MD Work Phone: [facility] Comment on above: Bed bugs Start: 07-24-2024 End: 07-24-2024 Refill Sung Crowe MD Work Phone: [facility] Comment on above: Refill Request Start: 07-13-2024 End: 07-13-2024 ambulatory FELIPE ASCENCIO Facility:[facility] Start: 07-13-2024 End: 07-13-2024 Patient encounter procedure Felipe Ascencio MD Work Phone: Orthopaedics Comment on above: Osteoarthritis of le ft knee, unspecified osteoarthritis type (Primary Dx); Genu varum of left lower extremity; Effusion of left knee; Tobacco use Start: 07-02-2024 End: 07-02-2024 ambulatory SUNG CROWE Facility:[facility] Start: 07-02-2024 End: 07-02-2024 Patient encounter procedure Katty Kemp APRN.SALES AND MARKETING EXECUTIVE Work Phone: [facility] Comment on above: Rash (Primary Dx) Start: 06-03-2024 End: 06-04-2024 Telephone encounter Sung Crowe MD Work Phone: [facility] [place] Comment on above: Results Start: 05-19-2024 End: 05-19-2024 ambulatory JAMIE HAAS Facility:[facility] Start: 05-19-2024 End: 05-19-2024 Subsequent hospital visit by physician Xr [facility] Work Phone: Radiology Comment on above: Pain in both knees, unspecified chronicity [M25.561, M25.562] Start: 04-13-2024 ambulatory JANEY A NEENA Fac ility:[facility] Start: 04-13-2024 End: 04-13-2024 Subsequent hospital visit by physician Xr [facility] Work Phone: Radiology Start: 04-13-2024 End: 04-13-2024 ambulatory JANEY A SUPPAN Facility:[facility] Start: 04-13-2024 End: 04-13-2024 Office outpatient visit 25 minutes Janey A Jackan [employer]INA SALES AND SERVICE SUPERVISOR.SALES AND MARKETING EXECUTIVE Work Phone: [facility] [place] Comment on above: Acute pain of left k nee (Primary Dx); Paranoid schizophrenia (HCC); Mixed hyperlipidemia; Anxiety; Encounter for immunization; Chronic knee instability, left; Migraine without aura, intractable, without status migrainosus; OAB (overactive bladder); Screening for depression; Special screening examination for viral disease; Tobacco abuse Start: 04-09-2024 End: 04-09-2024 Refill Sung Crowe MD Work Phone: [facility] [place] Comment on above: Refill Request Start: 03-06-2024 End: 03-06-2024 Telephone encounter Marlin Pratt APRN.CNP Work Phone: Psychiatry Start: 03-06-2024 End: 03-06-2024 ambulatory SUNG GLYNN JR Facility:[facility] Start: 03-06-2024 End: 03-06-2024 ambulatory SUNG GLYNN JR Facility:[facility] Start: 03-06-2024 End: 03-06-2024 Patient encounter procedure Sung Glynn MD Work Phone: Neurology Comment on above: Intractable migraine without status migrainosus, unspecified migraine type (Primary Dx); History of seizure [Z87.898 (ICD-10-CM)]; Tremor; Insomnia, unspecified type; Bipolar 1 disorder (HCC); Anxiety; Lightheaded; Neuropathy; Poor appetite; Abnormal weight loss; Abdominal pain, unspecified abdominal location Start: 02-14-2024 End: 02-14-2024 Telephone encounter Sung Crowe MD Work Phone: [facility] [place] Comment on above: Patient Update Start: 01-08-2024 End: 01-08-2024 Refill Sung Crowe MD Work Phone: [facility] [place] Comment on above: Refill Request Start: 01-03-2024 End: 01-03-2024 Refill Sung Crowe MD Work Phone: [facility] [place] Comment on above: Refill Request Start: 12-03-2023 Refill Sung Crowe MD Work Phone: [facility] [place] Comment on above: Refill Request Start: 09-23-2023 Refill Sung Crowe MD Work Phone: [facility] [place] Comment on above: Refill Request Start: 09-04-2023 End: 09-04-2023 Patient encounter procedure Stella Lopez PA-C Work Phone: Neurology Comment on above: Migraine without aur a and without status migrainosus, not intractable (Primary Dx); Action tremor; Drug-induced tremor; Neuropathy; History of seizure [Z87.898 (ICD-10-CM)]; Lightheaded; Insomnia, unspecified type; Encounter for long-term (current) use of medications Start: 08-23-2023 Refill Sung Crowe MD Work Phone: [facility] [place] Comment on above: Refill Request Start: 07-03-2023 End: 07-03-2023 Office outpatient visit 25 minutes Monica Walker APRN.CNP Work Phone: [facility] [place] Comment on above: Abdominal pain, unsp ecified abdominal location (Primary Dx); Chronic pain of left knee; Foreign body of right knee; Dyspepsia; Nausea; Seborrheic keratoses Start: 05-29-2023 Refill Sung Crowe MD Work Phone: [facility] [place] Comment on above: Refill Request Start: 02-28-2023 End: 02-28-2023 ambulatory Pulm [facility] Work Phone: [facility] Comment on above: Spirometry Start: 02-28-2023 End: 02-28-2023 Patient encounter procedure [facility] Work Phone[facility] Start: 02-20-2023 End: 02-20-2023 Patient encounter procedure Sung Crowe MD Work Phone: [facility] [place] Comment on above: Weight loss (Primary Dx); Chronic obstructive pulmonary disease, unspecified COPD type (HCC); Bipolar affective disorder, remission status unspecified (HCC); Paranoid schizophrenia (HCC); Developmental delay; Anxiety; Need for influenza vaccination; Need for vaccination; Mixed hyperlipidemia; Intractable migraine without status migrainosus, unspecified migraine type; Tremor; Tremors of nervous system; Migraine with aura, not intractable, without status migrainosus Start: 01-23-2023 Telephone encounter Niraj El Work Phone: Podiatry Comment on above: Appointment Start: 12-13-2022 Telephone encounter Sung Crowe MD Work Phone: [facility] [place] Comment on above: Results Start: 12-12-2022 End: 12-12-2022 Patient encounter procedure Stella Lopez PA-C Work Phone: Neurology Comment on above: Migraine without aur a and without status migrainosus, not intractable (Primary Dx); Action tremor; Drug-induced tremor; Neuropathy; Insomnia, unspecified type; Lightheaded Start: 12-06-2022 Telephone encounter Maryjane [place] kaycee [facility] Work Phone: Psychology Start: 12-05-2022 End: 12-05-2022 Patient encounter procedure Sung Crowe MD Work Phone: Family [facility] [place] Comment on above: Weight loss (Primary Dx); Left upper quadrant abdominal pain; Tremors of nervous system; Bipolar affective disorder, remission status unspecified (HCC); Paranoid schizophrenia (HCC); Developmental delay; Anxiety; Medication monitoring encounter; Screening for prostate cancer; History of colonic polyps; Chest wall pain; Intercostal pain; Change in bowel function Start: 08-09-2022 ambulatory ORQUIDEA EATON Facility:[facility] Start: 08-09-2022 End: 08-09-2022 Subsequent hospital visit by physician Jennifer Shannon MD Work Phone: LD SURGERY Comment on above: Epigastric abdominal pain [R10.13] Start: 07-24-2022 Refill Sung Crowe MD Work Phone: [facility] Comment on above: Refill Request Start: 06-20-2022 End: 06-21-2022 ambulatory SUNG CROWE Facility:[facility] Start: 06-13-2022 End: 06-13-2022 Patient encounter procedure Stella Lopez PA-C Work Phone: Neurology Comment on above: Intractable migraine without status migrainosus, unspecified migraine type (Primary Dx); Paranoid schizophrenia (HCC); Anxiety; Bipolar 1 disorder (HCC); Tremor Start: 06-06-2022 End: 06-06-2022 Patient encounter procedure Jennifer Shannon MD Work Phone: General Surgery Comment on above: GERD without esophag itis; Gastritis without bleeding, unspecified chronicity, unspecified gastritis type; Epigastric abdominal pain Start: 05-30-2022 End: 05-30-2022 Patient encounter procedure Sung Crowe MD Work Phone: [facility] [place] Comment on above: Acute pain of left k nee (Primary Dx); GERD without esophagitis; Gastritis without bleeding, unspecified chronicity, unspecified gastritis type; Need for influenza vaccination; Need for vaccination; Tremors of nervous system; Paranoid schizophrenia (HCC); Bipolar affective disorder, remission status unspecified (HCC); Tobacco use Start: 03-28-2022 Refill Sung Crowe MD Work Phone: [facility] [place] Comment on above: Refill Request Start: 03-09-2022 Telephone encounter Sung Crowe MD Work Phone: [facility] [place] Comment on above: Patient Update Start: 02-27-2022 Refill Sung Crowe MD Work Phone: [facility] [place] Comment on above: Refill Request Start: 12-22-2021 End: 12-22-2021 Subsequent hospital visit by physician Xr [facility] Work Phone: Radiology Comment on above: Chronic pain of left knee [M25.562, G89.29] Start: 12-22-2021 End: 12-22-2021 Patient encounter procedure Sung Crowe MD Work Phone: [facility] [place] Comment on above: Chronic pain of left knee (Primary Dx); Seborrheic keratoses; Tremors of nervous system; Migraine with aura, not intractable, without status migrainosus Start: 12-21-2021 Refill Sung Crowe MD Work Phone: [facility] [place] Comment on above: Refill Request left leg pain Start: 08-31-2021 Refill Sung Crowe MD Work Phone: [facility] [place] Comment on above: Refill Request Start: 08-25-2021 End: 08-25-2021 Subsequent hospital visit by physician Xr [facility] Work Phone: Radiology Comment on above: Acute pain of right shoulder [M25.511] Start: 08-25-2021 End: 08-25-2021 Patient encounter procedure Sung Crowe MD Work Phone: [facility] [place] Comment on above: Medication monitorin g encounter (Primary Dx); Paranoid schizophrenia (HCC); Chronic right-sided low back pain; GERD without esophagitis; Anxiety; Mixed hyperlipidemia; Bipolar affective disorder, remission status unspecified (HCC); Acute pain of right shoulder Start: 08-24-2021 Refill Sung Crowe MD Work Phone: [facility] [place] Comment on above: Opened In Error Start: 10-18-2016 Ambulatory JESSICA YO Facilit y:. Procedures Date Procedure Procedure Detail Performing Clinician Start: 04-13-2024 Adult depression scr eening assessment Janey Chaudhary APRN.SALES AND MARKETING EXECUTIVE Work Phone: Start: 02-28-2023 Brncdilat rspse spmt ry pre&post-brncdilat admn Sung Crowe MD Work Phone: Start: 02-20-2023 PFIZER-BIONTECH COVI D-19 VACCINE (2022- SEASON) AGE 12+ YR Sung Crowe MD Work Phone: Start: 02-20-2023 INFLUENZA VACCINE, A GE 6 MO - 64 YR, QUADRIVALENT (AFLURIA, FLULAVAL, FLUZONE) Sung Crowe MD Work Phone: Start: 05-30-2022 PFIZER-BIONTECH COVI D-19 BIVALENT BOOSTER VACCINE, AGE 12+ YR Sung Crowe MD Work Phone: Start: 05-30-2022 INFLUENZA VACCINE QUADRIVALENT 6 MO - 64 YRS IM Sung Crowe MD Work Phone: Start: 12-22-2021 Radiologic exam knee complete 4/more views Sung Crowe MD Work Phone: Start: 08-25-2021 Radex shoulder compl ete minimum 2 views Sung Crowe MD Work Phone: Start: 08-25-2021 Adult depression scr eening assessment Sung Crowe MD Work Phone: Start: 08-25-2021 Lipid 1996 panel - [place] or Plasma Niraj Amos Work Phone: Start: 07-15-2018 Colonoscopy Sung Levy MD Work Phone: Start: 07-05-2017 Adult depression scr eening assessment Sung Crowe MD Work Phone: Plan of Treatment Date Care Activity Detail Author Start: 07-15-2028 Colonoscopy COLONOSCOPY [facility] Start: 07-15-2028 COLORECTAL CANCER SCREENING COLORECTAL CANCER SCREENING [facility] Start: 07-15-2028 Screening for malignant neoplasm of colon [facility] Start: 12-06-2027 PROSTATE CANCER SCREENING DISCUSSION PROSTATE CANCER SCREENING DISCUSSION [facility] Start: 12-06-2027 Prostate specific antigen measurement Prostate Cancer Screening Discussion [facility] Start: 07-06-2027 Urine microalbumin profile [facility] Start: 03-06-2027 Diabetes Screening Diabetes Screening [facility] Start: 09-03-2026 Diabetes Screening Diabetes Screening [facility] Start: 08-25-2026 Lipid 1996 panel - Serum or Plasma Lipid Screening [facility] Start: 08-25-2026 Lipid panel Lipid Screening [facility] Start: 08-25-2026 LIPID SCREEN LIPID SCREEN [facility] Start: 12-12-2025 DIABETES SCREEN DIABETES SCREEN [facility] Start: 12-12-2025 Diabetes Screening Diabetes Screening [facility] Start: 04-13-2025 Depression Screening Depression Screening [facility] Start: 01-09-2025 End: 01-09-2025 Patient encounter procedure 01/09/2025 10:40 AM EDT Office Visit [facility] [place] [address] [place] [address] Sung Crowe MD [address] [facility] [place] [place] [address] 6 month follow up Family [facility] [place] Comment on above: 6 month follow up Start: 12-21-2024 Influenza vaccination Influenza Vaccine (#1) [facility] Start: 11-03-2024 LIPID SCREEN LIPID SCREEN [facility] Start: 10-19-2024 End: 10-19-2024 Patient encounter procedure 10/19/2024 1:40 PM EDT Office Visit [facility] [place] [address] [place] [address] Sung Crowe MD [address] [facility] [place] [address] 6 month exam [facility] [place] Comment on above: 6 month exam Start: 10-13-2024 [facility] Start: 10-13-2024 [facility] Start: 10-13-2024 Consultation [facility] Start: 10-12-2024 End: 01-11-2025 CBC W Auto Differential panel - Blood COMPLETE BLOOD COUNT AND DIFFERENTIAL Lab Routine Anxiety Expected: 10/12/2024, Expires: 01/11/2025 [facility] Comment on above: Expected: 10/12/2024, Expires: Start: 10-12-2024 End: 01-11-2025 Cobalamin (Vitamin B12) [Mass/volume] in Serum or Plasma VITAMIN B12 Lab Routine Mixed hyperlipidemia Migraine without aura, intractable, without status migrainosus Expected: 10/12/2024, Expires: 01/11/2025 [facility] Comment on above: Expected: 10/12/2024, Expires: Start: 10-12-2024 End: 01-11-2025 Comprehensive metabolic 2000 panel - Serum or Plasma COMPREHENSIVE METABOLIC PANEL Lab Routine Migraine without aura, intractable, without status migrainosus Expected: 10/12/2024, Expires: 01/11/2025 [facility] Comment on above: Expected: 10/12/2024, Expires: Start: 10-12-2024 End: 01-11-2025 Hepatitis C virus Ab [Presence] in Serum HEPATITIS C ANTIBODY IA WITH CONFIRMATION Lab Routine Special screening examination for viral disease Expected: 10/12/2024, Expires: 01/11/2025 [facility] Comment on above: Expected: 10/12/2024, Expires: Start: 10-12-2024 End: 01-11-2025 Magnesium [Mass/volume] in Serum or Plasma MAGNESIUM Lab Routine Migraine without aura, intractable, without status migrainosus Expected: 10/12/2024, Expires: 01/11/2025 [facility] Comment on above: Expected: 10/12/2024, Expires: Start: 10-12-2024 End: 01-11-2025 Valproate Free [Mass/volume] in Serum or Plasma VALPRO AC/DEPAK FREE Lab Routine Paranoid schizophrenia (HCC) Expected: 10/12/2024, Expires: 01/11/2025 [facility] Comment on above: Expected: 10/12/2024, Expires: Start: 08-25-2024 DIABETES SCREEN DIABETES SCREEN [facility] Start: 07-13-2024 End: 07-13-2024 Patient encounter procedure 07/13/2024 8:45 AM EDT Office Visit Orthopaed[facility] [address] [place], [place] [id number] Felipe Ascencio MD [address] [place], [place] [address] Osteoarthritis of left knee, unspecified osteoarthritis type [M17.12]; Genu varum of left lower extremity [M21.162]; Effusion of left knee [M25.462] Orthopaedics Comment on above: Osteoarthritis of left knee, unspecified osteoarthritis type [M17.12]; Genu varum of left lower extremity [M21.162]; Effusion of left knee [M25.462] Start: 07-12-2024 End: 10-11-2024 levETIRAcetam [Mass/volume] in Serum or Plasma LEVETIRACETAM Lab Routine Paranoid schizophrenia (HCC) Anxiety Expected: 07/12/2024, Expires: 10/11/2024 [facility] Comment on above: Expected: 07/12/2024, Expires: Start: 04-22-2024 Medicare Advantage Annual Wellness Visit Medicare Advantage Annual Wellness Visit [facility] Start: 04-13-2024 End: 05-13-2025 XR Knee - left 4 Views XR KNEE GENERAL 4V AP BOTH/PA BOTH/LAT/MERC LEFT Radiology Routine Chronic knee instability, left Expected: 04/13/2024, Expires: 05/13/2025 [facility] Work Phone: Comment on above: Expected: 04/13/2024, Expires: Start: 04-13-2024 End: 04-13-2024 Patient encounter procedure 04/13/2024 11:40 AM EST Office Visit [facility] [place] [address] [facility] [place] [address] Janey Chaudhary APRN.SALES AND MARKETING EXECUTIVE [address] [facility] [place] [address] Medication Follow up [facility] Comment on above: Medication Follow up Start: 03-17-2024 End: 03-17-2024 Patient encounter procedure 03/17/2024 9:00 AM EST Office Visit [facility] [place] [address] [place] [phone] Dino Miles MD [address] [place] [address] poor appetite. [facility] wants in soon [facility] [place] Comment on above: poor appetite. [facility] [place] wants in soon Start: 03-09-2024 End: 03-09-2024 Patient encounter procedure 03/09/2024 6:20 PM EST Office Visit [facility] [place] [address] [facility] [place] [address] Sung Crowe MD [address] [facility] [place] [address] Increased Anger Issues [facility] Comment on above: Increased Anger Issues Start: 03-06-2024 End: 06-05-2024 Amylase [Enzymatic activity/volume] in Serum or Plasma [facility] Comment on above: Expected: 03/06/2024, Expires: Start: 03-06-2024 End: 06-05-2024 CBC W Auto Differential panel - Blood [facility] Comment on above: Expected: 03/06/2024, Expires: Start: 03-06-2024 End: 06-05-2024 Comprehensive metabolic 2000 panel - Serum or Plasma [facility] Work Phone: Comment on above: Expected: 03/06/2024, Expires: Start: 03-06-2024 End: 06-05-2024 Lipase [Enzymatic activity/volume] in Serum or Plasma [facility] Comment on above: Expected: 03/06/2024, Expires: 5 Start: 03-06-2024 End: 06-05-2024 Thyrotropin [Units/volume] in Serum or Plasma [facility] Comment on above: Expected: 03/06/2024, Expires: 5 Start: 03-06-2024 End: 03-06-2024 Patient encounter procedure Neurology Comment on above: 6 month follow up 6 month follow up mi graine, tremor, insomnia, lightheadedness. bakari 09/03 MQ- consult to mvmt, cont topiramate 50mg qd, Imitrex 50mg onset Start: 02-21-2024 Hepatitis B Vaccine (1 of 3 - 19+ 3-dose series) Hepatitis B Vaccine (1 of 3 - 19+ 3-dose series) [facility] Comment on above: Postponed from 08/27/1986 (Declined at t his time) Start: 02-21-2024 Hepatitis B Vaccine (1 of 3 - 3-dose series) Hepatitis B Vaccine (1 of 3 - 3-dose series) [facility] Comment on above: Postponed from 1967 (Declined at t his time) Start: 02-21-2024 Shingrix Vaccine (1 of 2) Shingrix Vaccine (1 of 2) [facility] Comment on above: Postponed from 08/27/2017 (Declined at t his time) Start: 12-22-2023 Covid-19 Vaccine ( season) Covid-19 Vaccine ( season) [facility] Start: 12-22-2023 Influenza [facility] Start: 12-14-2023 End: 01-12-2024 Ct thorax w/o contrast material CT CHEST WO IVCON Radiology Routine Lung nodule Lung nodules Expected: 12/14/2023, Expires: 01/12/2024 [facility] Work Phone: Comment on above: Expected: 12/14/2023, Expires: Start: 12-14-2023 Influenza vaccination LUNG CANCER SCREENING [facility] Start: 12-14-2023 Screening for malignant neoplasm of lung Lung Cancer Screening [facility] Start: 11-11-2023 End: 11-11-2023 Patient encounter procedure 11/11/2023 1:00 PM EDT Office Visit Neurology [address] [place] [phone] Gen Hernandez MD [address] [place] [address] 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] Neurology Comment on above: 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] Start: 10-02-2023 End: 10-02-2023 Patient encounter procedure 10/02/2023 2:40 PM EDT Office Visit [facility] [address] [place], [place] [phone] Sung Crowe MD [address] [place], [place] [address] 3 month f/u [facility] Comment on above: 3 month f/u Start: 10-01-2023 End: 10-01-2023 Patient encounter procedure 10/01/2023 9:15 AM EDT Office Visit Gastroenterology [address] [place] [address] Swetha Blake APRN.[facility] [address] [place], [place] [phone] Abdominal pain, unspecified abdominal location [R10.9] Gastroenterology Comment on above: Abdominal pain, unspecified abdominal lo cation [R10.9] Start: 09-04-2023 End: 09-04-2023 Patient encounter procedure 09/04/2023 11:15 AM EDT Office Visit Neurology [address] [place], [place] [phone] Stella Lopez PA-C [address] [place], [place] [phone] Follow up tremors, [facility] Comment on above: Follow up tremors, [facility] Start: 04-22-2023 Behavioral Health Screening Behavioral Health Screening [facility] Start: 04-22-2023 Depression Assessment Depression Assessment [facility] Start: 03-02-2023 DIABETES SCREEN DIABETES SCREEN [facility] Start: 01-16-2023 End: 03-18-2023 Thyrotropin [Units/volume] in Serum or Plasma TSH BLD Lab Routine Weight loss Expected: 01/16/2023, Expires: 03/18/2023 [facility] Work Phone: Comment on above: Expected: 01/16/2023, Expires: 3 Start: 12-21-2022 Influenza vaccination [facility] Start: 12-12-2022 End: 02-11-2023 C reactive protein [Mass/volume] in Serum or Plasma [facility] Work Phone: Comment on above: Expected: 12/12/2022, Expires: 3 Start: 12-12-2022 End: 02-11-2023 Cobalamin (Vitamin B12) [Mass/volume] in Serum or Plasma [facility] Work Phone: Comment on above: Expected: 12/12/2022, Expires: 3 Start: 12-12-2022 End: 02-11-2023 Methylmalonate [Moles/volume] in Serum or Plasma [facility] Work Phone: Comment on above: Expected: 12/12/2022, Expires: 3 Start: 12-12-2022 End: 02-11-2023 PROT ELECT SERUM WITH KELVIN AND INTERP [facility] Work Phone: Comment on above: Expected: 12/12/2022, Expires: 3 Start: 12-05-2022 End: 02-04-2023 Bacteria identified in Urine by Culture [facility] Work Phone: Comment on above: Expected: 12/05/2022, Expires: 3 Start: 12-05-2022 End: 02-04-2023 Comprehensive metabolic 2000 panel - Serum or Plasma [facility] Work Phone: Comment on above: Expected: 12/05/2022, Expires: 3 Start: 12-05-2022 End: 02-04-2023 levETIRAcetam [Mass/volume] in Serum or Plasma [facility] Work Phone: Comment on above: Expected: 12/05/2022, Expires: 3 Start: 12-05-2022 End: 02-04-2023 Prealbumin [Mass/volume] in Serum or Plasma [facility] Work Phone: Comment on above: Expected: 12/05/2022, Expires: 3 Start: 12-05-2022 End: 02-04-2023 PSA/PROSTSPECAG SCRN [facility] Work Phone: Comment on above: Expected: 12/05/2022, Expires: 3 Start: 12-05-2022 End: 02-04-2023 Topiramate [Mass/volume] in Serum or Plasma [facility] Work Phone: Comment on above: Expected: 12/05/2022, Expires: 3 Start: 08-27-2022 PROSTATE CANCER SCREENING DISCUSSION PROSTATE CANCER SCREENING DISCUSSION [facility] Start: 08-25-2022 Adult depression screening assessment DEPRESSION SCREENING [facility] Start: 04-22-2022 DEPRESSION ASSESSMENT DEPRESSION ASSESSMENT [facility] Start: 12-21-2021 Influenza vaccination [facility] Start: 08-25-2021 End: 10-25-2021 CBC W Auto Differential panel - Blood [facility] Work Phone: Comment on above: Expected: 08/25/2021, Expires: 2 Start: 08-25-2021 End: 10-25-2021 Comprehensive metabolic 2000 panel - Serum or Plasma [facility] Work Phone: Comment on above: Expected: 08/25/2021, Expires: 2 Start: 08-25-2021 End: 10-25-2021 Hemoglobin A1c/Hemoglobin.total in Blood [facility] Work Phone: Comment on above: Expected: 08/25/2021, Expires: 2 Start: 08-25-2021 End: 10-25-2021 levETIRAcetam [Mass/volume] in Serum or Plasma [facility] Work Phone: Comment on above: Expected: 08/25/2021, Expires: 2 Start: 08-25-2021 End: 10-25-2021 LIPID PANEL BASIC [facility] Work Phone: Comment on above: Expected: 08/25/2021, Expires: 2 Start: 04-22-2021 DEPRESSION ASSESSMENT DEPRESSION ASSESSMENT [facility] Start: 03-07-2021 COVID-19 VACCINE (3 - Booster for Moderna series) COVID-19 VACCINE (3 - Booster for Moderna series) [facility] Start: 11-30-2020 COVID-19 VACCINE (3 - Booster for Moderna series) COVID-19 VACCINE (3 - Booster for Moderna series) [facility] Start: 07-05-2018 Adult depression screening assessment DEPRESSION SCREENING [facility] Start: 07-05-2018 Pneumococcal vaccination [facility] Start: 07-05-2018 Pneumococcal Vaccine: 50+ (2 of 2 - PCV) Pneumococcal Vaccine: 50+ (2 of 2 - PCV) [facility] Start: 08-27-2017 Influenza vaccination LUNG CANCER SCREENING [facility] Start: 08-27-2017 SHINGRIX VACCINE (1 of 2) SHINGRIX VACCINE (1 of 2) [facility] Start: 08-27-2012 COLOGUARD (FIT-DNA) COLOGUARD (FIT-DNA) [facility] Start: 08-27-[address] COLONOGRAPHY [facility] Start: 08-27-2012 FECAL OCCULT BLOOD FECAL OCCULT BLOOD [facility] Start: 08-27-2012 Screening for malignant neoplasm of colon [facility] Start: 08-27-2012 SIGMOIDOSCOPY SIGMOIDOSCOPY [facility] Start: 08-27-1986 Hepatitis B Vaccine (1 of 3 - 19+ 3-dose series) Hepatitis B Vaccine (1 of 3 - 19+ 3-dose series) [facility] Start: 08-27-1985 Depression Screening Depression Screening [facility] Start: 08-27-1985 HEPATITIS C SCREENING HEPATITIS C SCREENING [facility] Start: 08-27-1985 Hepatitis C screening Hepatitis C Screening [facility] Start: 08-27-1985 HIV SCREENING HIV SCREENING [facility] Start: 08-27-1985 HIV screening HIV Screening [facility] Start: 08-27-1972 COVID-19 VACCINE (1) COVID-19 VACCINE (1) [facility] Start: 1967 HEPATITIS B (1 of 3 - 3-dose series) HEPATITIS B (1 of 3 - 3-dose series) [facility] Start: 1965 Hepatitis B Vaccine (1 of 3 - 3-dose series) Hepatitis B Vaccine (1 of 3 - 3-dose series) [facility] End: 01-04-2024 Ct abdomen & pelvis w/contrast material CT ABD/PEL W IVCON Radiology Routine Weight loss Left upper quadrant abdominal pain 1 Occurrences starting 12/05/2022 until 01/04/2024 [facility] Work Phone: Comment on above: 1 Occurrences starting 12/05/2022 until 01/04/2024 End: 01-04-2024 CT CHEST W IVCON CT CHEST W IVCON Radiology Routine Weight loss Chest wall pain Intercostal pain 1 Occurrences starting 12/05/2022 until 01/04/2024 [facility] Work Phone: Comment on above: 1 Occurrences starting 12/05/2022 until 01/04/2024 End: 08-09-2022 EGD DIAGNOSTIC EGD DIAGNOSTIC Endoscopy Routine Epigastric abdominal pain 1 Occurrences starting 08/09/2022 until 08/09/2022 [facility] Work Phone: Comment on above: 1 Occurrences starting 08/09/2022 until 08/09/2022 End: 03-21-2024 LUNG VOLUMES LUNG VOLUMES PFT Routine Chronic obstructive pulmonary disease, unspecified COPD type (HCC) 1 Occurrences starting 02/20/2023 until 03/21/2024 [facility] Work Phone: Comment on above: 1 Occurrences starting 02/20/2023 until 03/21/2024 End: 08-01-2024 NM Stomach Views for gastric emptying solid phase W radionuclide PO NM GASTRIC EMPTYING SOLID Radiology Routine Dyspepsia Nausea 1 Occurrences starting 07/03/2023 until 08/01/2024 [facility] Work Phone: Comment on above: 1 Occurrences starting 07/03/2023 until 08/01/2024 Patient Education ED Adjustment Disorder ED Hypertension, To Be Confirmed [facility] Work Phone: Patient referral [facility] Work Phone: End: 03-21-2024 SPIROMETRY WITH DILATOR IF OBSTRUCTED SPIROMETRY WITH DILATOR IF OBSTRUCTED PFT Routine Chronic obstructive pulmonary disease, unspecified COPD type (HCC) 1 Occurrences starting 02/20/2023 until 03/21/2024 [facility] Work Phone: Comment on above: 1 Occurrences starting 02/20/2023 until 03/21/2024 SURGICAL PATHOLOGY SURGICAL PATH OLOGY Lab Routine Gastroesophageal reflux disease, unspecified whether esophagitis present Epigastric abdominal pain Release Upon Ordering for 1 Occurrences starting 08/09/2022 [facility] Work Phone: Comment on above: Release Upon Ordering for 1 Occurrences starting 08/09/2022 End: 07-06-2023 Us abdominal real time w/image limited US ABD RT UPPER QUADRANT Radiology Routine Epigastric abdominal pain 1 Occurrences starting 06/06/2022 until 07/06/2023 [facility] Work Phone: Comment on above: 1 Occurrences starting 06/06/2022 until 07/06/2023 XR Knee - bilateral 4 Views XR KNEE GENERAL 4V AP BOTH/PA BOTH/LAT/MERC BILATERAL Radiology Routine Pain in both knees, unspecified chronicity 05/19/2024 1:52 PM EST [facility] Work Phone: End: 01-21-2023 XR KNEE GENERAL 4V AP BOTH/PA BOTH/LAT/MERC LEFT XR KNEE GENERAL 4V AP BOTH/PA BOTH/LAT/MERC LEFT Radiology Routine Chronic pain of left knee 1 Occurrences starting 12/22/2021 until 01/21/2023 [facility] Work Phone: Comment on above: 1 Occurrences starting 12/22/2021 until 01/21/2023 XR KNEE GENERAL 4V A P BOTH/PA BOTH/LAT/MERC LEFT XR KNEE GENERAL 4V AP BOTH/PA BOTH/LAT/MERC LEFT Radiology Routine Chronic pain of left knee 12/22/2021 11:42 AM EDT [facility] Work Phone: XR SHOULDER GENERAL 3V OR MORE AP/TRUE AP/OTHER RIGHT XR SHOULDER GENERAL 3V OR MORE AP/TRUE AP/OTHER RIGHT Radiology Routine Acute pain of right shoulder 08/25/2021 4:01 PM EDT [facility] Work Phone: [facility] Immunizations Immunization Date Immunization Notes Care Provider [facility] 04-13-2024 influenza, seasonal, injectable Janey Suppan MARINA SALES AND SERVICE SUPERVISOR.[employer] AND MARKETING EXECUTIVE Work Phone: [facility] 04-13-2024 pneumococcal conjuga te (PCV20) vaccine, 20 valent (PREVNAR 20) Janey Suppan MARINA SALES AND SERVICE SUPERVISOR.SALES AND MARKETING EXECUTIVE Work Phone: [facility] 04-13-2024 pneumococcal Conjuga te, unspecified formulation Janey Suppan MARINA SALES AND SERVICE SUPERVISOR.SALES AND MARKETING EXECUTIVE Work Phone: [facility] 04-13-2024 influenza virus vacc ine, unspecified formulation Sung Crowe MD Work Phone: [facility] 02-20-2023 COVID-19 vaccine, ag e 12+ yr, season ([employer]) Sung Crowe MD Work Phone: [facility] 02-20-2023 influenza, injectabl e, quadrivalent, contains preservative Sung Crowe MD Work Phone: [facility] 02-20-2023 influenza virus vacc ine, unspecified formulation Sung Crowe MD Work Phone: [facility] 05-30-2022 COVID-19 booster vaccine, age 12+ yr, bivalent ([employer]) Sung Crowe MD Work Phone: [facility] 05-30-2022 influenza, injectabl e, quadrivalent, contains preservative Sugn Crowe MD Work Phone: [facility] 05-30-2022 influenza virus vacc ine, unspecified formulation Niraj Amos Work Phone: [facility] 01-12-2021 influenza, injectabl e, quadrivalent, preservative free Sung Crowe MD Work Phone: [facility] 02-24-2020 influenza, injectabl e, quadrivalent, preservative free Sung Crowe MD Work Phone: [facility] 02-14-2019 influenza, injectabl e, quadrivalent, contains preservative Sung Crowe MD Work Phone: [facility] 05-15-2018 influenza, injectabl e, quadrivalent, contains preservative Sung Crowe MD Work Phone: [facility] 07-05-2017 pneumococcal polysaccharide vaccine, 23 valent Sung Crowe MD Work Phone: [facility] 07-05-2017 tetanus toxoid, redu abelardo diphtheria toxoid, and acellular pertussis vaccine, adsorbed Sung Crowe MD Work Phone: [facility] 01-14-2017 influenza, injectabl e, quadrivalent, preservative free Sung Crowe MD Work Phone: [facility] 10-09-2010 tetanus and diphther ia toxoids, adsorbed, preservative free, for adult use (5 Lf of tetanus toxoid and 2 Lf of diphtheria toxoid) Sung Crowe MD Work Phone: [facility] Payers Date Payer Category Payer Medicaid [id number] 2024 Self-pay 2019 Medicaid [id number] 2019 Medicare [id number] [facility] MEDICARE [facility] MEDICARE [id number] 2019-Present [phone] [address] [place] [address] Medicare [id number] 2019 Medicare (Managed Care) [facility] MEDICARE [id number] 2019 Medicare [id number] Medicare [id number] Unknown [id number] Unknown [id number] Social History Date Type Detail Facility Start: 07-05-2017 End: 12-22-2021 Tobacco smoking status NHIS Ex-smoker [facility] Start: 08-27-1977 End: 06-25-2017 History of tobacco use Current smoker [facility] Start: 08-27-1977 End: 06-25-2017 History of tobacco use Cigarette Smoker [facility] Start: 07-05-2017 End: 02-20-2023 Cigarettes smoked current (pack per day) - Reported 0.75 [facility] Start: 07-05-2017 End: 03-06-2024 Tobacco use and exposure Smokeless tobacco non-user [facility] Start: 03-10-2020 End: 08-21-2024 Alcohol intake Current drinker of alcohol (finding) [facility] Start: 1965 Sex Assigned At Not on file C [facility] Start: 08-13-2021 End: 03-06-2022 Exposure to SARS-CoV-2 (event) Not sure [facility] Work Phone: Start: 12-05-2022 End: 02-20-2023 Tobacco use panel [facility] Adult Depression Screening Assessment 0 [facility] Start: 08-27-1977 End: 03-06-2024 Tobacco smoking status NJIS Occasional tobacco smoker [facility] Work Phone: Start: 10-13-2024 Tobacco smoking stat us [facility] Smokes tobacco daily (finding) [facility] Start: 1965 Sex Assigned At Male W [facility] Clinical Notes 05-15-2018 to 10-31-2024 Telephone Encounter - Lisette Montoya LPN - 10/31/2024 11:39 AM EDTTelephone Encounter - Lisette Montoya LPN - 10/31/2024 11:39 AM EDT Note Date & Type Note Facility 10-31-2024 Telephone encounter Note Form atting of this note might be different from the original. Patent is on wait list. Has canceled x 2 and no show x1. Will have to watch for opening from wait list. [facility] 10-31-2024 Miscellaneous Notes Formattin g of this note might be different from the original. Patent is on wait list. Has canceled x 2 and no show x1. Will have to watch for opening from wait list. Patient's sister calling in to cancel his patient with Dr. Crowe on 10/31/24. She states that he is unable to make the appt due to vomiting. I rescheduled patient on 01/09/[address] Crowe's first available. Sister states he needs seen sooner than this due to some issues he has going on. I offered for him to see the FAMILY PRACTICE MD, she declined. Patient also added to wait list for Dr. Crowe. Please review and advise. Norah Naylor October 31, 2024 11:28 AM documented in this encounter [facility] 10-31-2024 Telephone encounter Note Form atting of this note might be different from the original. Patient's sister calling in to cancel his patient with Dr. Crowe on 10/31/24. She states that he is unable to make the appt due to vomiting. I rescheduled patient on 01/09/[address] Crowe's first available. Sister states he needs seen sooner than this due to some issues he has going on. I offered for him to see the FAMILY PRACTICE MD, she declined. Patient also added to wait list for Dr. Crowe. Please review and advise. Norah Naylor October 31, 2024 11:28 AM [facility] 10-13-2024 Discharge summary [facility] 10-13-2024 Discharge summary Note Date/Time October 13, 2024 11:57pm [facility] Medical Records Department [address] [place] [id number] Emergency Department Summary 10/13/24 MR#: [id number] Acct: [id number] Name: JUSTO GUSMAN Rep #:[id number] : 1965 59 From: Rambo Suggs MD PCP: Dr. Sung Crowe MD Status:REG E R Location: ED HPI HPI - Psych History of Present Illness Chief Complaint: Mental Health Detail of Chief Complaint: Agitation and history of schizoaffective disorder Informant: patient Onset/Context/Timing Onset: Month(s) (Problems with sister for 4 to 5 months) Context: Sudden Onset Conflict: Family Timing: Intermittent (Problem with sister and cousin) and Waxes and wanes Current Severity: Moderate Maximum Severity: Severe Worsened by: Situational factors Relieved by: Getting away from his sister Associated Symptoms Associated Symptoms - Psych: Positive for Depressed, Agitated and Angry; Negative for Change in Eating, Change in sleeping, Decreased Interest, Guilt, Decreased Concentration, Hopelessness, Suicidal Thoughts, Easily distracted, Grandiosity, Flight of Ideas, Increased activity, Pressured Speech, Hostile, Threatening, Confusion, Paranoia, Visual Hallucinations or Auditory Hallucinations Specific plan (suicidal thought): Not applicable Narrative Narrative: Patient is a 59-year-old male with history of schizoaffective disorder, hypercholesterolemia, GERD and depression who presents because of agitation. Hestates he can no longer tolerate his sister. He had problems for 4 to 5 months. She is causing problems between he and his cousin. They are all living in the same house apparently. He has no suicidal homicidal thoughts. He has no intention of harming his sister. He is upset with his sister. He states he needs to find a place of his own. He would like help to live someplace else. He has no other complaints or concerns. Prior similar symptoms: No Recent Illness/Hospitalization: No [facility] Medical History Nasal septal deviation Hyperlipemia Schizo affective schizophrenia Home Medications ?Medication ?Instructions ?Recorded ?Last Taken ?Type aripiprazole 10 mg tablet 10 mg PO DAILY 10/13/24 Unkn own History buspirone 15 mg tablet 15 mg PO TID 10/13/24 Unknow n History divalproex 500 mg tablet,extended 500 mg PO DAILY 09/21 08/14 Unknown History release 24 hr gabapentin 300 mg capsule PO 10/13/24 Unknown History levetiracetam 500 mg tablet 500 mg PO BID 10/13/24 Unk nown History meloxicam 15 mg tablet 15 mg PO DAILY 10/13/24 Unkn own History omeprazole 20 mg capsule,delayed 20 mg PO BID 10/13/24 Unknown History release simvastatin 20 mg tablet 20 mg PO QHS 10/13/24 Unknow n History sumatriptan succinate 50 mg tablet PO 10/13/24 Unknown History trazodone 100 mg tablet 100 mg PO QHS 10/13/24 Unkno wn History Allergy/AdvReac Type Severity Reaction Status Date / Time Penicillins Allergy Severe Anaphylaxis Verified 10/13/24 20:15 Social History Smoking Status: Current every day smoker tobacco type: cigarettes ROS ROS ED Constitutional Constitutional ED: Denies chills, fever(s) or subjective Eyes Eyes: Denies blurry vision or change in vision ENT ENT ED: Denies ear pain, rhinorrhea or sore throat Cardiovascular Cardiovascular: Denies chest pain or palpitations Respiratory/Chest Respiratory/Chest: Denies cough, dyspnea or dyspnea on exertion Gastrointestinal Gastrointestinal: Denies abdominal pain, diarrhea or vomiting Genitourinary Genitourinary ED: Denies dysuria, hematuria or urinary frequency Musculoskeletal Musculoskeletal: Denies arthralgias or myalgias Integumentary Denies rash Neurologic Neurologic: Denies headache(s) or paresthesias Psychiatric Psychiatric: Reports depression; Denies suicidal ideation or suicidal thoughts Hematologic/Lymphatic Hematologic/Lymphatic: Denies easy bleeding or easy bruising EXAM Physical Exam Const Vital Signs: 10/13/24 20:15 10/13/24 23:46 Temperature 97.9 F 98.8 F Temperature Source Temporal Pulse Rate 84 61 Respiratory Rate 18 18 Blood Pressure 149/79 H 135/77 H Blood Pressure Mean 102 96 Pulse Ox 100 97 Oxygen Delivery Method Room Air Positive well nourished, well developed and unkempt Constitutional Narrative: Blood pressure is elevated. He is not well-groomed. General Appearance ED: unkempt and well developed; Negative for pallor HEENT Reports TM's clear HEENT Narrative: Poor dentition with many missing teeth. normocephalic and atraumatic Tympanic Membrane ED: Yes TM's clear Eyes PERRL and EOMs intact bilaterally General Eye ED: Negative for pale conjunctiva or scleral icterus Neck no lymphadenopathy, supple and no JVD Resp normal respiratory effort and clear to auscultation bilaterally Cardio S1 normal heart sound, S2 normal heart sound and no murmurs Rate: regular rate Rhythm: regular rhythm GI non-tender Inspection: abdominal distention Auscultation: normoactive bowel sounds Palpation: soft Back/Spine no CVA tenderness Extremity normal to inspection General Extremety ED: Negative for edema General Extremity: Negative for edema Neuro oriented x3 and CN's II-XII intact bilaterally Sean Coma Scale: document GCS findings Spontaneous Obeys Commands Oriented 15 Sensorium / Orientation: alert Psych cooperative, speech normal, activity/motor behavior normal, denies hallucinations, denies homicidal ideation and denies suicidal ideation Appearance: grossly normal, appropriate and unkempt Attitude: calm Activity / Motor Behavior: appropriate eye contact and psychomotor slowing Speech: normal speech Mood & Affect: depressed Thought Process: normal thought process Thought Content: normal thought content Attention / Concentration: attention grossly intact and concentration grossly intact Memory / Cognition: memory grossly intact Insight: limited Judgement: fair Skin General Skin Exam: Negative for jaundice or pallor Lesions: no lesions Rashes: no rashes MDM MDM MDM Narrative Medical decision making narrative: Went to discuss case with case management. Case management had left by the timeI had evaluated patient. In light of this crisis social work supervisor saw him. Made appropriate arrangements. He is willing to go back to the house. Crisis will help him with his family issues and housing. In my opinion there is no indication for laboratory testing or imaging. This is a psychosocial dynamic problem. Discharge Plan Triage Chief Complaint: Mental Health ED Provider: Rambo Suggs Dx/Rx/DC Orders Clinical Impression: Adjustment disorder with emotional disturbance, Schizoaffective disorder, Agitation, Elevated blood-pressure reading without diagnosis of hypertension Instructions: ED Adjustment Disorder, ED Hypertension, To Be Confirmed Prescriptions: No Action levetiracetam 500 mg tablet 500 mg PO BID meloxicam 15 mg tablet 15 mg PO DAILY sumatriptan succinate 50 mg tablet PO trazodone 100 mg tablet 100 mg PO QHS simvastatin 20 mg tablet 20 mg PO QHS divalproex 500 mg tablet extended release 24 hr 500 mg PO DAILY gabapentin 300 mg capsule PO omeprazole 20 mg capsule,delayed release(DR/EC) 20 mg PO BID buspirone 15 mg tablet 15 mg PO TID aripiprazole 10 mg tablet 10 mg PO DAILY Primary Care Provider: Sung Crowe Referrals: Counseling,Center [Group of Physicians] - Keep Jose appointment Sung Crowe MD [Primary Care Provider] - Print Language: Romansh Disposition Disposition: Home, Self Care What to do if you have Problems For any increased pain, shortness of breath, bleeding, nausea or vomiting, chestpain, or any unexpected problems, contact your Primary Care Provider. Call [facility] ([phone]) or report to the closest Emergency Room. Call 911 if necessary. 10/13/24 3215 <Electronically signed by Rambo Suggs MD> Cosigner Signature (if applicable): CC: Dr. Sung Crowe MD ~ Signed [facility] Work Phone: 1(242) 786-958805-02-2025 Telephone encounter Note* Telephone Encounter - Minal Wong OCCA - 08/21/2024 2:41 PM EDT Prescription Refill Information The patient has been identified by name and date of : Yes Caregiver verified no other encounters exist for this prescription request: Yes Caregiver confirmed with patient/requestor that no other refills are due, in the near future, with this provider at this time: Yes The last office visit in the department: 03/06/2024 with WKEVIN Does the patient have a future office visit with this provider/department: No Requested Prescriptions Pending Prescriptions Disp Refills divalproex ER (DEPAKOTE ER) 500 mg 24 hr tablet [Pharmacy Med Name: divalproex ER 500 mg tablet,extended release 24 hr] 90 tablet 1 Sig: Take 1 tablet by mouth daily at bedtime. VINI Reyes August 21, 2024 2:41 PM [facility]05-02-2025 Miscellaneous Notes* Telephone Encounter - Minal Wong OCCA - 08/21/2024 2:41 PM EDT Prescription Refill Information The patient has been identified by name and date of : Yes Caregiver verified no other encounters exist for this prescription request: Yes Caregiver confirmed with patient/requestor that no other refills are due, in the near future, with this provider at this time: Yes The last office visit in the department: 03/06/2024 with WKEVIN Does the patient have a future office visit with this provider/department: No Requested Prescriptions Pending Prescriptions Disp Refills divalproex ER (DEPAKOTE ER) 500 mg 24 hr tablet [Pharmacy Med Name: divalproex ER 500 mg tablet,extended release 24 hr] 90 tablet 1 Sig: Take 1 tablet by mouth daily at bedtime. VINI Reyes August 21, 2024 2:41 PM documented in this encounterBar[facility]04-[facility] Telephone encounter Note * Telephone Encounter - Doretha Richard RN - 08/10/2024 5:31 PM EDT Pts sister called and is notified of providers message and instructions. She voices understanding. She states not getting him in with the provider soon. I told her I didn't have any appointments withDr Terell that were soon. I told her I could get her in with Monica Walker FAMILY PRACTICE MD or Raisa Chaudhary FAMILY PRACTICE MD. Pts sister said she will think about it and call back. Doretha Richard RN [facility]04-21-2025 Miscellaneous Notes* Telephone Encounter - Doretha Richard RN - 08/10/2024 5:31 PM EDT Pts sister called and is notified of providers message and instructions. She voices understanding. She states not getting him in with the provider soon. I told her I didn't have any appointments withDr [place] that were soon. I told her I could get her in with Monica Walker FAMILY PRACTICE MD or Raisa Chaudhary FAMILY PRACTICE MD. Pts sister said she will think about it and call back. Doretha Richard RN * Telephone Encounter - Doretha Richard RN - 08/07/2024 8:13 AM EDT Called patient and no answer. Patients voicemail was full. Will need to call back later. Doretha Richard RN * Telephone Encounter - Aislinn Ramos MA - 08/06/2024 2:39 PM EDT Placed call to patients Renu clark. No answer. Unable to leave message. Try again later.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 EXAM: Physical Exam Vitals reviewed. Constitutional: Appearance: Normal appearance. HENT: Head: Normocephalic. Cardiovascular: Rate and Rhythm: Normal rate and regular rhythm. Pulses: Normal pulses. Heart sounds: Normal heart sounds. Pulmonary: Effort: Pulmonary effort is normal. Breath sounds: Normal breath sounds. Abdominal: General: Bowel sounds are normal. Palpations: Abdomen is soft. Tenderness: There is no abdominal tenderness. There is no guarding or rebound. Musculoskeletal: Comments: Left knee medial aspect warm Pain with internal rotation Pain on extension, no pain with flexion or lateral rotation No crepitus on palpation or movement Skin: General: Skin is warm and dry. Neurological: Mental Status: He is alert and oriented to person, place, and time. Psychiatric: Mood and Affect: Mood normal. Behavior: Behavior normal. LABS: reviewed labs ASSESSMENT/PLAN: 1. Acute pain of left knee - ICD9: 719.46, ICD10: M25.562 (primary diagnosis) Get Xrays 2. Paranoid schizophrenia (HCC) - ICD9: 295.30, ICD10: F20.0 Ongoing - LEVETIRACETAM 500 MG TABLET - VALPRO AC/DEPAK FREE - LEVETIRACETAM 3. Mixed hyperlipidemia - ICD9: 272.2, ICD10: E78.2 - Controlled - Counseled on healthy diet and regular exercise - SIMVASTATIN 20 MG TABLET - VITAMIN B12 4. Anxiety - ICD9: 300.00, ICD10: F41.9 Stable - TRAZODONE 100 MG TABLET - LEVETIRACETAM - COMPLETE BLOOD COUNT AND DIFFERENTIAL 5. Encounter for immunization - ICD9: V03.89, ICD10: Z23 - INFLUENZA VACCINE, AGE 6MO-64YR, TRIVALENT (AFLURIA, FLULAVAL, FLUVIRIN, FLUZONE) - [facility] [employer] INSTRUCTIONS - PNEUMOCOCCAL VACCINE, 20 VALENT (PREVNAR 20) 6. Chronic knee instability, left - ICD9: 718.86, ICD10: M23.52 Check Xrays - XR KNEE GENERAL 4V AP BOTH/PA BOTH/LAT/MERC LEFT 7. Migraine without aura, intractable, without status migrainosus - ICD9: 346.11, ICD10: G43.019 Stable - SUMATRIPTAN 50 MG TABLET - COMPREHENSIVE METABOLIC PANEL - MAGNESIUM - VITAMIN B12 8. OAB (overactive bladder) - ICD9: 596.51, ICD10: N32.81 Switch Oxybutin to Vesicare - SOLIFENACIN 5 MG TABLET 9. Screening for depression - ICD9: V79.0, ICD10: Z13.31 Stable - DEPRESSION SCREENING 10. Special screening examination for viral disease - ICD9: V73.99, ICD10: Z11.59 Check with next labs - HEPATITIS C ANTIBODY IA WITH CONFIRMATION 11. Tobacco abuse - ICD9: 305.1, ICD10: Z72.0 - Cessation encouraged. - Physiologic and physical aspects of tobacco addiction as well as strategies for quitting were discussed. - Counseling was given focusing on the harmful effects of this addiction especially given the patient's medical condition(s) which will be worsened because of the chemicals in tobacco. - VARENICLINE 1 MG TABLET Discussed treatment plan and patient voices understanding. Patient's questions answered appropriately. Medications and potential side effects were discussed and patient voices understanding. Return to the office as scheduled or as needed for worsening/no improvement. Janey Chaduhary APRN.[employer] EXECUTIVE documented in this encounterBarney Children'S [facility] Center12-19-2024 Telephone encounter Note * Telephone Encounter - Ruth Stern RN - 04/09/2024 10:09 AM EST The patient has been identified by name and date of : Yes Caregiver verified no other encounters exist for this prescription request: Yes Caregiver confirmed with patient/requestor that no other refills are due, in the near future, with this provider at this time: Yes The last office visit in the department: 07/03/2023 Does the patient have a future office visit with this provider/department: Yes 04/13/2024 Requested Prescriptions Pending Prescriptions Disp Refills ARIPiprazole (ABILIFY) 10 mg tablet 30 tablet 4 Sig: Take 1 tablet by mouth once daily. meloxicam (MOBIC) 15 mg tablet 30 tablet 1 Sig: Take 1 tablet by mouth once daily. Ruth Stern RN April 09, 2024 10:10 AM [facility]12-19-2024 Miscellaneous Notes* Telephone Encounter - Ruth Stern RN - 04/09/2024 10:09 AM EST The patient has been identified by name and date of : Yes Caregiver verified no other encounters exist for this prescription request: Yes Caregiver confirmed with patient/requestor that no other refills are due, in the near future, with this provider at this time: Yes The last office visit in the department: 07/03/2023 Does the patient have a future office visit with this provider/department: Yes 04/13/2024 Requested Prescriptions Pending Prescriptions Disp Refills ARIPiprazole (ABILIFY) 10 mg tablet 30 tablet 4 Sig: Take 1 tablet by mouth once daily. meloxicam (MOBIC) 15 mg tablet 30 tablet 1 Sig: Take 1 tablet by mouth once daily. Ruth Stern RN April 09, 2024 10:10 AM documented in this encounterBarney Children'S [facility] Center11-15-2024 Telephone encounter Note * Telephone Encounter - Sonia Barajas - 03/06/2024 9:03 AM EST Patient would like to establish care with you. [facility]11-15-2024 Miscellaneous Notes* Telephone Encounter - Sonia Barajas - 03/06/2024 9:03 AM EST Patient would like to establish care with you. documented in this encounterBarney Children'S Medical Center11-15-2024 NoteHNO ID: [id number] Author: SUNG GLYNN JR, MD Service: ? Author Type: Physician Type: Progress Notes Filed: 03/06/2024 09:34 Note Text: ESTABLISHED PATIENT VISIT CHIEF COMPLAINT: Follow Up HISTORY OF PRESENT ILLNESS: Justo Gusman is a 58 year old male, BMI 17.98 kg/m2 with a PMH significant for and per last office visit with me on 03/09/22: 1. Intractable migraine without status migrainosus, unspecified migraine type - ICD9: 346.91, ICD10: G43.919 (primary diagnosis) Patient with history of headaches, for which it appears he has had prior workups, but those records are not available for review. Unclear what medications he has been on before. Records suggest VPA, but not sure if used for mood or headaches. Per history, headaches appear to be of a migrainous nature. Propranolol not providing relief and with bradycardia and hypotension on review of recent vitals with pt endorsing lightheadedness. They states he is not propranolol for any other conditions. Thus, recommend it be d/c'd. Will start on Topamax 25mg as preventative and titrate up by 25mg weekly to goal of 75mg QHS. SE and ADRs d/w pt and sister. Pt reporting no contraindications. 2. Tremor - ICD9: 781.0, ICD10: R25.1 Unclear per history when first started. Might represent essential, but also may be secondary to prior meds (pt uncertain of possible dopamine antagonists in past but can confirm VPA). Also unclear if family history. No relief with propranolol or gabapentin. Will d/c propranolol as above. Trial of Topamax for treatment of tremor as above (essentially trying to treat 2 conditions with 1 med). Other neuro conditions including possible seizures with pt on Keppra. Again limited history. Need prior records for review. No changes in Keppra for now. However, history provided by pt does raise concern that sz might represent PNES as associated with PTSD or thinking or prior trauma. If seizures recur, would recommend eval by EMU. Pt last saw Darren MARQUEZ on 09/04/23 and per note: 1. Migraine without aura and without status migrainosus, not intractable - ICD9: 346.10, ICD10: G43.009 (primary diagnosis) Patient with some mild improvement in his headaches since last appointment. Notes he only had 2 headaches this month they are very well aborted with Imitrex. However, sister notes he usually uses all 10 doses of Imitrex in a month, 2-3 headaches of the month he will need at least 2 doses to get rid of his headache. Doing well on Topamax 50 mg, weight has increased since last appointment. No new symptoms or concerns regarding headaches today, patient and family happy with current management at this time. 2. 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 Primary concern today. Did previously refer patient to movement. Patient was resting tremor of the left upper extremity with some cogwheel rigidity, decreased rapid alternating movements of the hands but normal in the legs. Concern for possible drug-induced tremor, discussed wrist weights that may be beneficial, but ultimately like patient to see movement for further evaluation. 4. Neuropathy - ICD9: 355.9, ICD10: G62.9 5. History of seizure [Z87.898 (ICD-10-CM)] - ICD9: V13.89, ICD10: Z87.898 No seizure-like activity since last appointment. Compliant with Keppra. 6. Lightheaded - ICD9: 780.4, ICD10: R42 Improved since last appointment, sister notes that he has had increased weight gain. However he is still having a poor appetite, is seeing GI for scope. 7. Insomnia, unspecified type - ICD9: 780.52, ICD10: G47.00 Stable 8. Encounter for long-term (current) use of medications - ICD9: V58.69, ICD10: Z79.899 Patient with long-term medication use, will obtain CMP and CBC. Patient is having more migraines and losing weight. Also having anger outbursts that are descried as severe -- family states that they have seen him punch himself in the face. Latter not associated with change in medications. Pt sleeps most of the day. Doesn't eat. "Lazy". Will go days without bathing. Patient yet to see psychiatry after eing put on hold. When asked about eating, family states he is lazy and if they don't get up and make him food, he wont eat. Headaches are occurring about 3 times per week. Headaches are frontal, sometimes nausea or photophobia - just wants to lie in room where dark and quiet. Still on Topamax 50mg QHS. Patient is having horrible stomach aches where down for 2 days. Also constipation. Last BM this AM - sister giving stool softener. Abd pain midline - states puts down for 2 days and is associated with vomiting - gets about once per week. Does drink ETOH but has cut back to a 6 pack in recent months. No hemoptysis, melena or other evidence of GI bleed per pt. Nights vary with sleep - about once a week (more content not included)...[facility]11-15-2024 History of Present illness Narrative* Sung Glynn Jr., MD - 03/06/2024 8:23 AM EST ESTABLISHED PATIENT VISIT CHIEF COMPLAINT: Follow Up HISTORY OF PRESENT ILLNESS: Justo Gusman is a 58 year old male, BMI 17.98 kg/m2 with a PMH significant for and per last office visit with me on 03/09/22: 1. Intractable migraine without status migrainosus, unspecified migraine type - ICD9: 346.91, ICD10: G43.919 (primary diagnosis) Patient with history of headaches, for which it appears he has had prior workups, but those recordsare not available for review. Unclear what medications he has been on before. Records suggest VPA, but not sure if used for mood or headaches. Per history, headaches appear to be of a migrainous nature. Propranolol not providing relief and with bradycardia and hypotension on review of recent vitalswith pt endorsing lightheadedness. They states he is not propranolol for any other conditions. Thus, recommend it be d/c'd. Will start on Topamax 25mg as preventative and titrate up by 25mg weekly togoal of 75mg QHS. SE and ADRs d/w pt and sister. Pt reporting no contraindications. 2. Tremor - ICD9: 781.0, ICD10: R25.1 Unclear per history when first started. Might represent essential, but also may be secondary to prior meds (pt uncertain of possible dopamine antagonists in past but can confirm VPA). Also unclear iffamily history. No relief with propranolol or gabapentin. Will d/c propranolol as above. Trial of Topamax for treatment of tremor as above (essentially trying to treat 2 conditions with 1 med). Other neuro conditions including possible seizures with pt on Keppra. Again limited history. Need prior records for review. No changes in Keppra for now. However, history provided by pt does raise concern that sz might represent PNES as associated with PTSD or thinking or prior trauma. If seizures recur, would recommend eval by EMU. Pt last saw Darren Lopez [facility] on 09/04/23 and per note: 1. Migraine without aura and without status migrainosus, not intractable - ICD9: 346.10, ICD10: G43.009 (primary diagnosis) Patient with some mild improvement in his headaches since last appointment. Notes he only had 2 headaches this month they are very well aborted with Imitrex. However, sister notes he usually uses all10 doses of Imitrex in a month, 2-3 headaches of the month he will need at least 2 doses to get ridof his headache. Doing well on Topamax 50 mg, weight has increased since last appointment. No new symptoms or concerns regarding headaches today, patient and family happy with current management at this time. 2. 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 Primary concern today. Did previously refer patient to movement. Patient was resting tremor of the left upper extremity with some cogwheel rigidity, decreased rapid alternating movements of the hands but normal in the legs. Concern for possible drug-induced tremor, discussed wrist weights that may bebeneficial, but ultimately like patient to see movement for further evaluation. 4. Neuropathy - ICD9: 355.9, ICD10: G62.9 5. History of seizure [Z87.898 (ICD-10-CM)] - ICD9: V13.89, ICD10: Z87.898 No seizure-like activity since last appointment. Compliant with Keppra. 6. Lightheaded - ICD9: 780.4, ICD10: R42 Improved since last appointment, sister notes that he has had increased weight gain. However he is still having a poor appetite, is seeing GI for scope. 7. Insomnia, unspecified type - ICD9: 780.52, ICD10: G47.00 Stable 8. Encounter for long-term (current) use of medications - ICD9: V58.69, ICD10: Z79.899 Patient with long-term medication use, will obtain CMP and CBC. Patient is having more migraines and losing weight. Also having anger outbursts that are descried as severe -- family states that they have seen him punch himself in the face. Latter not associated with change in medications. Pt sleeps most of the day. Doesn't eat. "Lazy". Will go days without bathing. Patient yet to see psychiatry after eing put on hold. When asked about eating, family states heis lazy and if they don't get up and make him food, he wont eat. Headaches are occurring about 3 times per week. Headaches are frontal, sometimes nausea or photophobia - just wants to lie in room where dark and quiet. Still on Topamax 50mg QHS. Patient is having horrible stomach aches where down for 2 days. Also constipation. Last BM this AM - sister giving stool softener. Abd pain midline - states puts down for 2 days and is associated with vomiting - gets about once per week. Does drink ETOH but has cut back to a 6 pack in recent months. No hemoptysis, melena or other evidence of GI bleed per pt. Nights vary with sleep - about once a week does not sleep good due to discomfort. No seizures. No lightheadedness of late. Overall tremors have improved - none seen during interview. REVIEW OF SYSTEMS GENERAL:No weight loss, malaise or fevers. HEENT:Negative for frequent or significant headaches, No changes in hearing or vision, no nose bleeds or other nasal problems NECK:Negative for lumps, goiter, pain and significant neck swelling RESPIRATORY: Negative for cough, wheezing or shortness of breath. CARDIOVASCULAR: Negative for chest pain, leg swelling or palpitations. GASTROINTESTINAL: Negative for abdominal discomfort, blood in stools or black stools or change in bowel habits GENITOURINARY: No history of dysuria, frequency or incontinence MUSCULOSKELETAL: Negative for joint pain or swelling, back pain or muscle pain. NEUROLOGIC:Negative for focal numbness or weakness, headaches and dizziness or syncope, vision changes, speech/languag changes - EXCEPT that as per HPI above. SKIN:Negative for lesions, rash, and itching. PSYCHIATRIC: See HPI. LAB/IMAGING: Those performed since patient's last visit have been reviewed. WBC (k/uL) Date Value 09/04/2023 8.42 RBC (m/uL) Date Value 09/04/2023 4.20 Hemoglobin (g/dL) Date Value 09/04/2023 13.3 Hematocrit (%) Date Value 09/04/2023 39.6 MCV (fL) Date Value 09/04/2023 94.3 MCH (pg) Date Value 09/04/2023 31.7 MCHC (g/dL) Date Value 09/04/2023 33.6 RDW-CV (%) Date Value 09/04/2023 14.3 Platelet Count (k/uL) Date Value 09/04/2023 259 MPV (fL) Date Value 09/04/2023 12.4 Glucose (mg/dL) Date Value 09/04/2023 96 BUN (mg/dL) Date Value 09/04/2023 16 Creatinine (mg/dL) Date Value 09/04/2023 1.05 Sodium (mmol/L) Date Value 09/04/2023 145 (H) Potassium (mmol/L) Date Value 09/04/2023 4.7 Chloride (mmol/L) Date Value 09/04/2023 109 (H) CO2 (mmol/L) Date Value 09/04/2023 24 Protein, Total (g/dL) Date Value 09/04/2023 6.5 Albumin (g/dL) Date Value 09/04/2023 4.3 Calcium, Total (mg/dL) Date Value 09/04/2023 9.2 Alkaline Phosphatase (U/L) Date Value 09/04/2023 49 Bilirubin, Total (mg/dL) Date Value 09/04/2023 0.4 AST (U/L) Date Value 09/04/2023 21 ALT (U/L) Date Value 09/04/2023 25 MEDICATIONS: levETIRAcetam (KEPPRA) 500 mg tablet Take 1 tablet by mouth two times a day. simvastatin (ZOCOR) 20 mg tablet Take 1 tablet by mouth daily at bedtime. busPIRone (BUSPAR) 15 mg tablet Take 1 tablet by mouth three times a day. traZODone (DESYREL) 100 mg tablet Take 1 tablet by mouth daily at bedtime. topiramate (TOPAMAX) 25 mg tablet Take 2 tabs at hs. oxybutynin (DITROPAN) 5 mg tablet Take 1 tablet by mouth three times a day. gabapentin (NEURONTIN) 300 mg capsule Take 1 capsule by mouth two times a day for 90 days. meloxicam (MOBIC) 15 mg tablet Take 1 tablet by mouth once daily. ARIPiprazole (ABILIFY) 10 mg tablet Take 1 tablet by mouth once daily. SUMAtriptan (IMITREX) 50 mg tablet Take 1 tablet (50 mg) by mouth as needed. at onset of headache. May repeat after 2 hours.No more than 2 doses in 24 hours. No more than 10 doses in a month ketoconazole (NIZORAL) 2 % shampoo Apply to affected area once daily as needed. omeprazole (PRILOSEC) 20 mg capsule Take 1 capsule by mouth two times a day at 6 am and 9 pm. cholecalciferol, vitamin D3, (VITAMIN D-3) 10 mcg (400 unit) cap Take 400 Units by mouth once daily. multivit,thx,calcium,iron,mins (MULTIVITAMIN AND MINERAL ORAL) Take by mouth. Ascorbic Acid (VITAMIN C) 100 mg tablet Take 100 mg by mouth once daily. HISTORIES PAST MEDICAL HISTORY Diagnosis Date Anxiety Bipolar disorder (HCC) Chronic lower back pain Developmental delay sister has guardianship GERD (gastroesophageal reflux disease) Hyperlipidemia Insomnia Paranoid schizophrenia ([facility]) Tobacco use Tremors of nervous system Urinary incontinence FAMILY HISTORY Problem Relation Age of Onset Diabetes Mother Cancer Mother lung Cancer Father lung other (cancer) Father stomach SOCIAL HISTORY Social History Tobacco Use Smoking status: Some Days Current packs/day: 0.00 Average packs/day: 0.8 packs/day for 40.0 years (30.0 ttl pk-yrs) Types: Cigarettes Start date: 08/27/1977 Last attempt to quit: 06/25/2017 Years since quittin.7 Smokeless tobacco: Never Substance Use Topics Alcohol use: Yes Alcohol/week: 1.0 standard drink of alcohol Types: 1 Cans of Beer (12oz) per week Drug use: No PHYSICAL EXAMINATION BP 118/75 (BP Site: Left Arm, BP Position: Sitting) Pulse 64 Wt 49.5 kg (109 lb 3.2 oz) SpO2 96% BMI 17.98 kg/m GENERAL EXAM: General appearance: NAD, pleasant. HEENT: NC/AT, nasal congestion absent, no oral lesions, membranes moist. NECK: ROM nml. Lungs: CTA bilaterally. CV: RRR nl S1, S2 Abd: No pain or tenderness on palp of quad x4. Extr: No cyanosis, clubbing or edema. Skin: Cool to touch. NEUROLOGICAL EXAM: General: Awake, alert, oriented x3 (person,place,time), fluent, no dysarthria; comprehension, naming, repetition intact. CN: PERRL, fundi with no evidence of papilledema, EOMI and without nystagmus, VFF to confrontation,facial sensation and strength are normal and symmetric, hearing is intact to finger rub bilaterally, palate and tongue movements are intact and symmetric. SCM and trapezius strength normal. Motor: Normal tone and strength (5/5) bilaterally (throughout extremities x4). Coordination: FNF, LIZA, HTS intact. Mild low amp high freq tremor with hands extended away from body. Sensation: Light touch, vibration, temperature intact throughout. No evidence of neglect. Gait: Stable with normal stride. Romberg unremarkable. Assessment and Plan: ASSESSMENT/PLAN: 1. Intractable migraine without status migrainosus, unspecified migraine type - ICD9: 346.91, ICD10: G43.919 (primary diagnosis) Headache frequency has increased. However headaches themselves unchanged when present. Pt not wanting imaging. Non focal neuro exam. Due to possible weight loss secondary to meds, will d/c Topamax and start on VPA ER 500mg as headache preventative. No change in abortive therapy with pt reminded on how to use. 2. History of seizure [Z87.898 (ICD-10-CM)] - ICD9: V13.89, ICD10: Z87.898 Stable on Keppra. No new complaints. No change in meds. 3. Tremor - ICD9: 781.0, ICD10: R25.1 Etiology likely multifactorial including med induced. Concern VPA might make tremor worse but mighthelp with regards to other med conditions. Will closely monitor. 4. Insomnia, unspecified type - ICD9: 780.52, ICD10: G47.00 Already on Trazodone. Suspect mood related. Will adjust gabapentin so that rather taking in AM, will have patient take all 600mg at bedtime. 5. Bipolar 1 disorder (HCC) - ICD9: 296.7, ICD10: F31.9 6. Anxiety - ICD9: 300.00, ICD10: F41.9 Will stop Topamax to see if having any impact on mood and outbursts. In addition, starting on VPA ER 500mg QHS to act as mood stabilizer. No changes to other meds being Rx'd through PCP. Referral placed to psychiatry. 7. Lightheaded - ICD9: 780.4, ICD10: R42 Resolved. 8. Neuropathy - ICD9: 355.9, ICD10: G62.9 Asx on current meds. Need to monitor as moving gabapentin to bedtime dosing. 9. Poor appetite - ICD9: 783.0, ICD10: R63.0 10. Abnormal weight loss - ICD9: 783.21, ICD10: R63.4 11. Abdominal pain, unspecified abdominal location - ICD9: 789.00, ICD10: R10.9 Uncertain etiology. Stopping Topamax. Labs as below. Will likely need imaging, but defer to PCP andGI - referral placed to GI. Depending on response to meds above and GI workup, consider d/c Trazodone and trial of Remeron at bedtime (increase appetite while helping pt sleep as well). - COMPREHENSIVE METABOLIC PANEL - AMYLASE - LIPASE - COMPLETE BLOOD COUNT AND DIFFERENTIAL - THYROID STIMULATING HORMONE Sung Glynn MD I spent a total of 40+ minutes on the date of the service which included preparing to see the patient, [id number] patient care, completing clinical documentation, obtaining and/or reviewing separately obtained history, performing a medically appropriate examination, counseling and educating the pa tient/family/caregiver, ordering medications, tests, or procedures, and communicating results to the patient/family/caregiver. * Arnulfo Tejada LPN - 03/06/2024 8:08 AM EST documented in this encounterBarney [facility]11[facility]24 NoteHNO ID: [id number] Author: ARNULFO TEJADA LPN Service: ? Author Type: LICENSED NURSE Type: Progress Notes Filed: 03/06/2024 09:34 Note Text:[facility]10-25-2024 Telephone encounter Note* Telephone Encounter - Sung Crowe MD - 02/14/2024 1:36 PM EDT If worsens before hand, will need to see one of the covering providers in my group since I am out of the country or go to er before hand. [facility]10-25-2024 Miscellaneous Notes* Telephone Encounter - Sung Crowe MD - 02/14/2024 1:36 PM EDT If worsens before hand, will need to see one of the covering providers in my group since I am out of the country or go to er before hand. * Telephone Encounter - Ruth Stern RN - 02/14/2024 1:30 PM EDT Patient's sister Salma calls and states that patient has been having more angry outbursts in the past couple of months. Patient has been hitting himself hard in the face. Patient has been hitting Salma's dog when she is not around. Patient also has been throwing his phone, which he broke. Salma wondering if patient has labs out of balance and whether this may be causing patient's issues or whet her patient needs medications adjusted. Salma would like to schedule appointment with Dr. Crowe. Offered appointment for today, Salma declined. Salma also declined appointment for Saturday. Salma does not want patient to see anyone but Dr. Crowe. Patient scheduled with Dr. Crowe on 03/09/2024. Please review and advise, Ruth Stern RN documented in this encounterBarney [facility]10-25-2024 Telephone encounter Note * Telephone Encounter - Ruth Stern RN - 02/14/2024 1:30 PM EDT Patient's sister Salma calls and states that patient has been having more angry outbursts in the past couple of months. Patient has been hitting himself hard in the face. Patient has been hitting Salma's dog when she is not around. Patient also has been throwing his phone, which he broke. Salma wondering if patient has labs out of balance and whether this may be causing patient's issues or whet her patient needs medications adjusted. Salma would like to schedule appointment with Dr. Crowe. Offered appointment for today, Salma declined. Salma also declined appointment for Saturday. Salma does not want patient to see anyone but Dr. Crowe. Patient scheduled with Dr. Crowe on 03/09/2024. Please review and advise, Ruth Stern RN [facility]09-18-2024 Telephone encounter Note* Telephone Encounter - Nunu Mcqueen LPN - 01/08/2024 12:59 PM EDT Prescription Refill Information The patient has been identified by name and date of : Yes Caregiver verified no other encounters exist for this prescription request: Yes Caregiver confirmed with patient/requestor that no other refills are due, in the near future, with this provider at this time: Yes The last office visit in the department: 07/03/23 Does the patient have a future office visit with this provider/department: No Requested Prescriptions Pending Prescriptions Disp Refills levETIRAcetam (KEPPRA) 500 mg tablet 60 tablet 5 Sig: Take 1 tablet by mouth two times a day. Nunu Mcqueen LPN January 08, 2024 1:00 PM [facility]09-18-2024 Miscellaneous Notes* Telephone Encounter - Nunu Mcqueen LPN - 01/08/2024 12:59 PM EDT Prescription Refill Information The patient has been identified by name and date of : Yes Caregiver verified no other encounters exist for this prescription request: Yes Caregiver confirmed with patient/requestor that no other refills are due, in the near future, with this provider at this time: Yes The last office visit in the department: 07/03/23 Does the patient have a future office visit with this provider/department: No Requested Prescriptions Pending Prescriptions Disp Refills levETIRAcetam (KEPPRA) 500 mg tablet 60 tablet 5 Sig: Take 1 tablet by mouth two times a day. Nunu Mcqueen LPN January 08, 2024 1:00 PM documented in this encounterBarney [facility]09-13-2024 Telephone encounter Note * Telephone Encounter - Nany Cornejo LPN - 01/03/2024 3:44 PM EDT The patient has been identified by name and date of : Yes Caregiver verified no other encounters exist for this prescription request: Yes Caregiver confirmed with patient/requestor that no other refills are due, in the near future, with this provider at this time: Yes The last office visit in the department: 07/03/2023 Does the patient have a future office visit with this provider/department: No Sister said she will schedule appt, she had surgery and knows he missed appts. Requested Prescriptions Pending Prescriptions Disp Refills simvastatin (ZOCOR) 20 mg tablet 30 tablet 5 Sig: Take 1 tablet by mouth daily at bedtime. busPIRone (BUSPAR) 15 mg tablet 90 tablet 5 Sig: Take 1 tablet by mouth three times a day. traZODone (DESYREL) 100 mg tablet 30 tablet 5 Sig: Take 1 tablet by mouth daily at bedtime. topiramate (TOPAMAX) 25 mg tablet 60 tablet 5 Sig: Take 2 tabs at hs. Nany Cornejo LPN January 03, 2024 3:46 PM [facility]09-13-2024 Miscellaneous Notes* Telephone Encounter - Nany Cornejo LPN - 01/03/2024 3:44 PM EDT The patient has been identified by name and date of : Yes Caregiver verified no other encounters exist for this prescription request: Yes Caregiver confirmed with patient/requestor that no other refills are due, in the near future, with this provider at this time: Yes The last office visit in the department: 07/03/2023 Does the patient have a future office visit with this provider/department: No Sister said she will schedule appt, she had surgery and knows he missed appts. Requested Prescriptions Pending Prescriptions Disp Refills simvastatin (ZOCOR) 20 mg tablet 30 tablet 5 Sig: Take 1 tablet by mouth daily at bedtime. busPIRone (BUSPAR) 15 mg tablet 90 tablet 5 Sig: Take 1 tablet by mouth three times a day. traZODone (DESYREL) 100 mg tablet 30 tablet 5 Sig: Take 1 tablet by mouth daily at bedtime. topiramate (TOPAMAX) 25 mg tablet 60 tablet 5 Sig: Take 2 tabs at hs. Nany Cornejo LPN January 03, 2024 3:46 PM documented in this encounterBarney [facility]08-13-2024 Telephone encounter Note * Telephone Encounter - Anne-Marie Faith LPN - 12/03/2023 3:15 PM EDT The patient has been identified by name and date of : Yes Caregiver verified no other encounters exist for this prescription request: Yes Caregiver confirmed with patient/requestor that no other refills are due, in the near future, with this provider at this time: Yes The last office visit in the department: 07/03/23 Does the patient have a future office visit with this provider/department: No Visit date not found Requested Prescriptions Pending Prescriptions Disp Refills oxybutynin (DITROPAN) 5 mg tablet 90 tablet 5 Sig: Take 1 tablet by mouth three times a day. gabapentin (NEURONTIN) 300 mg capsule 60 capsule 2 Sig: Take 1 capsule by mouth two times a day for 90 days. meloxicam (MOBIC) 15 mg tablet 30 tablet 1 Sig: Take 1 tablet by mouth once daily. Anne-Marie Faith LPN December 03, 2023 3:16 PM [facility]08-13-2024 Miscellaneous Notes* Telephone Encounter - Anne-Marie Faith LPN - 12/03/2023 3:15 PM EDT The patient has been identified by name and date of : Yes Caregiver verified no other encounters exist for this prescription request: Yes Caregiver confirmed with patient/requestor that no other refills are due, in the near future, with this provider at this time: Yes The last office visit in the department: 07/03/23 Does the patient have a future office visit with this provider/department: No Visit date not found Requested Prescriptions Pending Prescriptions Disp Refills oxybutynin (DITROPAN) 5 mg tablet 90 tablet 5 Sig: Take 1 tablet by mouth three times a day. gabapentin (NEURONTIN) 300 mg capsule 60 capsule 2 Sig: Take 1 capsule by mouth two times a day for 90 days. meloxicam (MOBIC) 15 mg tablet 30 tablet 1 Sig: Take 1 tablet by mouth once daily. Anne-Marie Faith LPN December 03, 2023 3:16 PM documented in this encounterBarney [facility]06-03-2024 Telephone encounter Note * Telephone Encounter - Awa Hannah LPN - 09/23/2023 1:33 PM EDT Patient has been identified by name and date of : Yes, Parent/Guardian phones for refill(s): Requested Prescriptions Pending Prescriptions Disp Refills ARIPiprazole (ABILIFY) 10 mg tablet 30 tablet 4 Sig: Take 1 tablet by mouth once daily. meloxicam (MOBIC) 15 mg tablet 30 tablet 1 Sig: Take 1 tablet by mouth once daily. Date of last office visit in primary care: 07/03/2023 Date of next office visit in primary care: 10/02/2023 Please advise. Thank you. Awa Hannah LPN. [facility]06-03-2024 Miscellaneous Notes* Telephone Encounter - Awa Hannah LPN - 09/23/2023 1:33 PM EDT Patient has been identified by name and date of : Yes, Parent/Guardian phones for refill(s): Requested Prescriptions Pending Prescriptions Disp Refills ARIPiprazole (ABILIFY) 10 mg tablet 30 tablet 4 Sig: Take 1 tablet by mouth once daily. meloxicam (MOBIC) 15 mg tablet 30 tablet 1 Sig: Take 1 tablet by mouth once daily. Date of last office visit in primary care: 07/03/2023 Date of next office visit in primary care: 10/02/2023 Please advise. Thank you. Awa Hannah LPN. documented in this encounterBarney Children'S [facility] Center05-15-2024 Instructions* Patient Instructions* Stella Lopez PA-C - 09/04/2023 11:26 AM EDT Consult to movement, try wrist weights for tremor Follow up with your primary care doctor for right hand pain if still swollen Continue with topiramate 50mg daily for prevention of headaches. Take imitrex 50mg with onset of headache. Follow up in six months with Dr. Glynn documented in this encounterBarney Children'S [facility] Center05-15-2024 History of Present illness Narrative* Stella Lopez PA-C - 09/04/2023 11:15 AM EDT ESTABLISHED PATIENT VISIT Last visit: 03/27/23 ASSESSMENT/PLAN: 1. 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 Chronic right-sided low back pain - ICD9: 724.2, 338.29, ICD10: M54.50, G89.29 3. 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 Patient does note that it fluctuates but does impact his daily life. Has longstanding history of psychiatric medication use, was referred to movement at last appointment, but had to cancel due to family emergency. Encouraged to schedule this today. Discussed other conservative therapies that may be beneficial as patient is already on Topamax,Keppra and propranolol. 4. Neuropathy - ICD9: 355.9, ICD10: G62.9 5. Migraine without aura and without status migrainosus, not intractable - ICD9: 346.10, ICD10: G43.009 6. Intractable migraine without status migrainosus, unspecified migraine type - ICD9: 346.91, ICD10: G43.919 7. Tremor - ICD9: 781.0, ICD10: R25.1 Headache slightly worsened since last appointment, did decrease Topamax due to concerns of weight loss. Patient is comfortable with where he is at right now, using Imitrex with good benefit. Does note that sometimes Imitrex does not fully alleviate the headache, discussed increasing to 2 doses within 24 hours and patient is amenable. No side effects with medication, no new symptoms with headaches. Will continue Topamax 50 mg daily and Imitrex as needed. 8. History of seizure [Z87.898 (ICD-10-CM)] - ICD9: V13.89, ICD10: Z87.898 Patient with history of seizures in the past, no seizure activity since last appointment, will continue Keppra 500 mg twice daily. 9. Lightheaded - ICD9: 780.4, ICD10: R42 Patient still endorsing lightheadedness daily. This is likely multifactorial as patient does not drink much water, does not eat, propranolol, and was found to have some mild symptoms of neuropathy atlast appointment. Deferring any EMG testing. Laboratory workup was negative. Encouraged conservative therapy including increasing water intake, physical activity and eating regularly throughout the day. Patient agrees and understands. No episodes of syncope, no falls since last appointment. Of note, did refill meloxicam prescription, patient denies any history of GI bleed. Does report some stomach irritation and encouraged to eat with food. Further refills will go through primary care. Patient and sister agreeable to treatment plan of care at this time, all questions were answered. Patient to follow-up in 5 months or sooner should any symptoms change or worsen. Plan: All options for treatment discussed. Preventative: Topamax 50 milligrams Abortive: Imitrex 50mg Follow-up: 5 months CHIEF COMPLAINT: follow up HISTORY OF PRESENT ILLNESS: Justo Gusman is a 58 year old male, There were no vitals taken for this visit. with a PMH significant for insomnia, HLD, GERD, bipolar, schizophrenia, anxiety. Last seen 03/27/24 for tremor, migraine and neuropathy follow up. Notes tremor is gradually worsening, encouraged FU with movement. On TPM 50mg and imitrex for abortive relief. Reporting some LH but does drink much water, eat much and has some sxs of neuropathy. Encouraged conservative tx. Having less than 10 GARCIA a month. Patient presents with his sister for follow-up appointment. Patient notes that since last appointment his headaches have improved. Does typically use all of his Imitrex in a month, but usually 2-3 times will need to take 2 doses, estimating about 7 headache days a month. Notes he is only had 2 headache days so far this month. No new symptoms with the headaches. Notes that the Imitrex typically gets rid of his headache within 1/2-hour. No significant side effects. Primary concern today is worsening tremor. Notes that he is no longer able to use his coffee cup and has to use something with the lid because of spelling. Tremors present in the bilateral upper extremities, sister notes that it is worse when he is resting on the left but he is right-hand dominant so he spills more things with his right hand. Slight oral tremor as well. Was referred to movement, but was unable to schedule this appointment. Notes his lightheadedness has improved, sister notes some weight gain since last appointment but patient still struggling with appetite. Has an appointment with GI for scope due to poor appetite and difficulty gaining weight. Patient did have 1 fall since last appointment. Notes that this was 3 days ago, he was at a store when there is a box on the ground and he tried to step over it but his foot caught. This caused him to fall downward onto his right upper extremity but no significant injuries were sustained. On exam however, patient with significant swelling over the right dorsal aspect of the hand at the base of the thumb. Patient denying any pain, does note a mild abrasion on the right elbow. No seizure activity since last appointment. Prior therapies for headache: Topiramate Gabapentin Propranolol Imitrex Kameron Shah REVIEW OF SYSTEMS GENERAL:No weight loss, malaise or fevers. HEENT:Negative for frequent or significant headaches, No changes in hearing or vision, no nose bleeds or other nasal problems NECK:Negative for lumps, goiter, pain and significant neck swelling RESPIRATORY: Negative for cough, wheezing or shortness of breath. CARDIOVASCULAR: Negative for chest pain, leg swelling or palpitations. GASTROINTESTINAL: Negative for abdominal discomfort, blood in stools or black stools or change in bowel habits GENITOURINARY: No history of dysuria, frequency or incontinence MUSCULOSKELETAL: Negative for joint pain or swelling, back pain or muscle pain. NEUROLOGIC:Negative for focal numbness or weakness, headaches and dizziness or syncope, vision changes, speech/languag changes - EXCEPT that as per HPI above. SKIN:Negative for lesions, rash, and itching. PSYCHIATRIC: Negative for sleep disturbance, mood disorder and recent psychosocial stressors. HEMATOLOGIC/LYMPHATIC/IMMUNOLOGIC:Negative for prolonged bleeding, bruising easily or swollen nodes. ENDOCRINE: Negative for cold or heat intolerance, polyuria, polydipsia and goiter. The remainder of the ROS was reviewed and is negative. LAB/IMAGING: Those performed since patient's last visit have been reviewed. None since last appointment MEDICATIONS: gabapentin (NEURONTIN) 300 mg capsule Take 1 capsule by mouth two times a day for 90 days. meloxicam (MOBIC) 15 mg tablet Take 1 tablet by mouth once daily. ketoconazole (NIZORAL) 2 % shampoo Apply to affected area once daily as needed. omeprazole (PRILOSEC) 20 mg capsule Take 1 capsule by mouth two times a day at 6 am and 9 pm. simvastatin (ZOCOR) 20 mg tablet Take 1 tablet by mouth daily at bedtime. busPIRone (BUSPAR) 15 mg tablet Take 1 tablet by mouth three times a day. traZODone (DESYREL) 100 mg tablet Take 1 tablet by mouth daily at bedtime. oxybutynin (DITROPAN) 5 mg tablet Take 1 tablet by mouth three times a day. levETIRAcetam (KEPPRA) 500 mg tablet Take 1 tablet by mouth two times a day. topiramate (TOPAMAX) 25 mg tablet Take 2 tabs at hs. ARIPiprazole (ABILIFY) 10 mg tablet Take 1 tablet by mouth once daily. cholecalciferol, vitamin D3, (VITAMIN D-3) 10 mcg (400 unit) cap Take 400 Units by mouth once daily. multivit,thx,calcium,iron,mins (MULTIVITAMIN AND MINERAL ORAL) Take by mouth. Ascorbic Acid (VITAMIN C) 100 mg tablet Take 100 mg by mouth once daily. SUMAtriptan (IMITREX) 50 mg tablet Take 1 tablet (50 mg) by mouth as needed. at onset of headache. May repeat after 2 hours.No more than 2 doses in 24 hours. No more than 10 doses in a month HISTORIES PAST MEDICAL HISTORY Diagnosis Date Anxiety Bipolar disorder (HCC) Chronic lower back pain Developmental delay sister has guardianship GERD (gastroesophageal reflux disease) Hyperlipidemia Insomnia Paranoid schizophrenia (HCC) Tobacco use Tremors of nervous system Urinary incontinence FAMILY HISTORY Problem Relation Age of Onset Diabetes Mother Cancer Mother lung Cancer Father lung other (cancer) Father stomach SOCIAL HISTORY Social History Tobacco Use Smoking status: Some Days Packs/day: 0.75 Years: 40.00 Additional pack years: 0.00 Total pack years: 30.00 Types: Cigarettes Start date: 08/27/1977 Last attempt to quit: 06/25/2017 Years since quittin.1 Smokeless tobacco: Never Substance Use Topics Alcohol use: Yes Alcohol/week: 1.0 standard drink of alcohol Types: 1 Cans of Beer (12oz) per week Drug use: No PHYSICAL EXAMINATION BP 109/66 Pulse (!) 52 Resp 18 Wt 55.4 kg (122 lb 3.2 oz) SpO2 100% BMI 20.12 kg/m GENERAL EXAM: General appearance: NAD, pleasant. HEENT: NC/AT, nasal congestion absent, no oral lesions, membranes moist. NECK: No masses, supple. Lungs: Breathing comfortably Extr: Moves all extremities without difficulty. Bruising and moderate swelling over the right hand at the base of the thumb on the dorsal aspect. No crepitance or tenderness to palpation. Full range of motion and full strength of the right hand. Skin: Cool to touch. No rash. NEUROLOGICAL EXAM: General: Awake, alert, oriented x3 (person,place,time), speech fluent, no dysarthria; comprehension, naming, repetition intact. CN: PERRL, EOMI and without nystagmus, VFF to confrontation, facial sensation and strength are normal and symmetric, hearing is intact to finger rub bilaterally, palate and tongue movements are intact and symmetric. SCM and trapezius strength normal. Motor: Normal bulk and strength (5/5) bilaterally (throughout extremities x4). Increased rigidity in the left upper extremity, cogwheel Reflexes: 2/4 and symmetric, plantar stimulation is flexor. Coordination: FNF intact. Patient with slight resting tremor of the left upper extremity, positive tremor with intention on the bilateral upper extremities. LIZA equal in lower extremities. Some bradykinesia with finger tapping bilaterally. Sensation: No evidence of neglect. Gait: Narrow based and stable with normal stride and arm swing. Assessment and Plan: ASSESSMENT/PLAN: 1. Migraine without aura and without status migrainosus, not intractable - ICD9: 346.10, ICD10: G43.009 (primary diagnosis) Patient with some mild improvement in his headaches since last appointment. Notes he only had 2 headaches this month they are very well aborted with Imitrex. However, sister notes he usually uses all10 doses of Imitrex in a month, 2-3 headaches of the month he will need at least 2 doses to get ridof his headache. Doing well on Topamax 50 mg, weight has increased since last appointment. No new symptoms or concerns regarding headaches today, patient and family happy with current management at this time. 2. 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 Primary concern today. Did previously refer patient to movement. Patient was resting tremor of the left upper extremity with some cogwheel rigidity, decreased rapid alternating movements of the hands but normal in the legs. Concern for possible drug-induced tremor, discussed wrist weights that may bebeneficial, but ultimately like patient to see movement for further evaluation. 4. Neuropathy - ICD9: 355.9, ICD10: G62.9 5. History of seizure [Z87.898 (ICD-10-CM)] - ICD9: V13.89, ICD10: Z87.898 No seizure-like activity since last appointment. Compliant with Keppra. 6. Lightheaded - ICD9: 780.4, ICD10: R42 Improved since last appointment, sister notes that he has had increased weight gain. However he is still having a poor appetite, is seeing GI for scope. 7. Insomnia, unspecified type - ICD9: 780.52, ICD10: G47.00 Stable 8. Encounter for long-term (current) use of medications - ICD9: V58.69, ICD10: Z79.899 Patient with long-term medication use, will obtain CMP and CBC. Patient agreeable to treatment plan of care at this time, questions were answered. Will have patient follow-up in 6 months or sooner should any symptoms change or worsen. Stella Lopez PA-C I spent a total of 30 minutes on the date of the service which included preparing to see the patient, [id number] patient care, completing clinical documentation, obtaining and/or reviewing separately obtained history, performing a medically appropriate examination, counseling and educating the pat ient/family/caregiver, and ordering medications, tests, or procedures. This document has been created with the use of voice recognition technology. It may contain inaccuracies: (e.g. misspellings, inaccurate syntax or word sense) that have escaped review. documented in this encounterBarney [facility]05-[facility] Telephone encounter Note * Telephone Encounter - Nora Saavedra LPN - 08/23/2023 11:27 AM EDT Patient has been identified by name and date of : Yes, Provider Dr. Crowe Date 08/23/23 Time 11:28 am Sister phones for refill(s): Requested Prescriptions Pending Prescriptions Disp Refills gabapentin (NEURONTIN) 300 mg capsule 60 capsule 2 Sig: Take 1 capsule by mouth two times a day for 90 days. Date of last office visit in primary care: 07/03/2023 Date of next office visit in primary care: 10/02/2023 Please advise. Thank you. Nora Saavedra LPN. [facility]05-03-[facility] Miscellaneous Notes* Telephone Encounter - Nora Saavedra LPN - 08/23/2023 11:27 AM EDT Patient has been identified by name and date of : Yes, Provider Dr. Crowe Date 08/23/23 Time 11:28 am Sister phones for refill(s): Requested Prescriptions Pending Prescriptions Disp Refills gabapentin (NEURONTIN) 300 mg capsule 60 capsule 2 Sig: Take 1 capsule by mouth two times a day for 90 days. Date of last office visit in primary care: 07/03/2023 Date of next office visit in primary care: 10/02/2023 Please advise. Thank you. Nora Saavedra LPN. documented in this encounterBarney [facility]03-13-2024 Instructions* Patient Instructions* Monica Walker APRN.CNP - 07/03/2023 1:45 PM EDT Schedule the gastric emptying test. Schedule w/ GI. Schedule with ortho. documented in this encounterBarney [facility]03-13-2024 History of Present illness Narrative* Monica Walker APRN.CNP - 07/03/2023 12:59 PM EDT This is a 57 year old male who presents today with: Patient presents with: Recheck: 3 month follow up HISTORY OF PRESENT ILLNESS: Justo Gusman is a 57 year old male. Patient presents with: Recheck: 3 month follow up Pt presents today with complaint of ongoing stomach issues and left knee pain. Presents with sister. Requesting referral to ortho. Left knee pain. Joivta on him. Gives me fits Interferes with activities. Causes him to fall. Gets swelling in the knee. Had xry in 2021 which showed OA. Incidentally, imaging showed a possible metallic object right knee. Takes meloxicam daily as needed. Stomach pain. Describes in the center in the abdomen. Gets nauseated, but doesn't vomit. On PPI. He had an EGD in 2022 which showed retained food products. No diarrhea. Refers doesn't stool daily, but doesn't have to strain. No early satiety, but may feel full until the next day. No bloating. No hematochezia/melena. No heartburn/reflux. Hx of migraines. Imitrex effective. PAST MEDICAL HISTORY: PAST MEDICAL HISTORY Diagnosis Date Anxiety Bipolar disorder (HCC) Chronic lower back pain Developmental delay sister has guardianship GERD (gastroesophageal reflux disease) Hyperlipidemia Insomnia Paranoid schizophrenia (HCC) Tobacco use Tremors of nervous system Urinary incontinence PAST SURGICAL HISTORY Procedure Laterality Date COLONOSCOPY FLX DX W/COLLJ SPEC WHEN PFRMD 07/15/2018 Colonoscopy ESOPHAGOGASTRODUODENOSCOPY TRANSORAL DIAGNOSTIC 07/15/2018 EGD PAST SURGICAL HISTORY OF nasal surgery as child TONSILLECTOMY HX ALLERGIES Bee Sting and Penicillin MEDICATIONS Current Outpatient Medications Medication Sig gabapentin (NEURONTIN) 300 mg capsule Take 1 capsule by mouth two times a day for 90 days. omeprazole (PRILOSEC) 20 mg capsule Take 1 capsule by mouth two times a day at 6 am and 9 pm. meloxicam (MOBIC) 15 mg tablet Take 1 tablet by mouth once daily. simvastatin (ZOCOR) 20 mg tablet Take 1 tablet by mouth daily at bedtime. busPIRone (BUSPAR) 15 mg tablet Take 1 tablet by mouth three times a day. traZODone (DESYREL) 100 mg tablet Take 1 tablet by mouth daily at bedtime. SUMAtriptan (IMITREX) 50 mg tablet Take 1 tablet (50 mg) by mouth as needed. at onset of headache. May repeat after 2 hours.No more than 2 doses in 24 hours. No more than 10 doses in a month oxybutynin (DITROPAN) 5 mg tablet Take 1 tablet by mouth three times a day. levETIRAcetam (KEPPRA) 500 mg tablet Take 1 tablet by mouth two times a day. topiramate (TOPAMAX) 25 mg tablet Take 2 tabs at hs. ARIPiprazole (ABILIFY) 10 mg tablet Take 1 tablet by mouth once daily. cholecalciferol, vitamin D3, (VITAMIN D-3) 10 mcg (400 unit) cap Take 400 Units by mouth once daily. multivit,thx,calcium,iron,mins (MULTIVITAMIN AND MINERAL ORAL) Take by mouth. Ascorbic Acid (VITAMIN C) 100 mg tablet Take 100 mg by mouth once daily. ketoconazole (NIZORAL) 2 % shampoo Apply to affected area once daily as needed. propranolol ER (INDERAL LA) 80 mg 24 hr capsule Take 1 capsule by mouth once daily. (Patient not taking: Reported on 03/27/2023) propranolol (INDERAL) 10 mg tablet Take 1 tablet by mouth once daily. (Patient not taking: Reportedon 03/27/2023) No current facility-administered medications for this visit. FAMILY HISTORY Problem Relation Age of Onset Diabetes Mother Cancer Mother lung Cancer Father lung other (cancer) Father stomach Social History Tobacco Use Smoking status: Some Days Packs/day: 0.75 Years: 40.00 Additional pack years: 0.00 Total pack years: 30.00 Types: Cigarettes Start date: 08/27/1977 Last attempt to quit: 06/25/2017 Years since quittin.0 Smokeless tobacco: Never Substance Use Topics Alcohol use: Yes Alcohol/week: 1.0 standard drink of alcohol Types: 1 Cans of Beer (12oz) per week Drug use: No EXAM: BP 122/72 Pulse (!) 56 Resp 16 Wt 54.4 kg (120 lb) BMI 19.75 kg/m PHYSICAL EXAM: General Appearance: Well appearing, alert, in no acute distress, well-hydrated, well nourished.. Skin: Skin color, texture, turgor normal, no suspicious rashes or lesions. Head: Normocephalic, no masses, lesions, tenderness or abnormalities. Eyes: Anicteric sclera. Pupils are equally round and reactive to light. Extraocular movements are intact. . Lungs: Lungs clear to auscultation. No wheezing, rhonchi, rales.. Heart: RRR without murmur, gallop, or rubs. No ectopy. Abdomen: Abdomen soft. + tenderness in the upper abdomen and right abdomen. Bowel sounds normal. Nomasses, organomegaly. Neurologic: Gait normal. ASSESSMENT/PLAN: 1. Abdominal pain, unspecified abdominal location - ICD9: 789.00, ICD10: R10.9 (primary diagnosis) With the retained food products seen on previous EGD history of migraines, question if patient could have gastroparesis. Will go ahead and get gastric emptying study. Will also plan on follow-up with gastroenterology. - Work up with gastric emptying study. - CONSULT TO GASTROENTEROLOGY 2. Chronic pain of left knee - ICD9: 719.46, 338.29, ICD10: M25.562, G89.29 - CONSULT TO ORTHOPAEDICS - MELOXICAM 15 MG TABLET 3. Foreign body of right knee - ICD9: 916.6, ICD10: S80.251A - CONSULT TO ORTHOPAEDICS 4. Dyspepsia - ICD9: 536.8, ICD10: R10.13 As above. - NM GASTRIC EMPTYING SOLID 5. Nausea - ICD9: 787.02, ICD10: R11.0 - NM GASTRIC EMPTYING SOLID 6. Seborrheic keratoses - ICD9: 702.19, ICD10: L82.1 Refill: - KETOCONAZOLE 2 % SHAMPOO Discussed treatment plan and patient voices understanding. Patient's questions answered appropriately. Medications and potential side effects were discussed and patient voices understanding. Return to the office as scheduled or as needed for worsening/no improvement. Monica Walker APRN.[employer]EC[employer] documented in this encounterBarney [facility]02-07-2024 Miscellaneous Notes* Telephone Encounter - Raquel Corley RN - 05/29/2023 4:58 PM EST Patient has been identified by name and date of : Yes, Provider Date Time Sister phones for refill(s): Requested Prescriptions Pending Prescriptions Disp Refills gabapentin (NEURONTIN) 300 mg capsule 60 capsule 2 Sig: Take 1 capsule by mouth two times a day for 90 days. omeprazole (PRILOSEC) 20 mg capsule 60 capsule 11 Sig: Take 1 capsule by mouth two times a day at 6 am and 9 pm. meloxicam (MOBIC) 15 mg tablet 30 tablet 1 Sig: Take 1 tablet by mouth once daily. simvastatin (ZOCOR) 20 mg tablet 30 tablet 5 Sig: Take 1 tablet by mouth daily at bedtime. busPIRone (BUSPAR) 15 mg tablet 90 tablet 5 Sig: Take 1 tablet by mouth three times a day. traZODone (DESYREL) 100 mg tablet 30 tablet 5 Sig: Take 1 tablet by mouth daily at bedtime. SUMAtriptan (IMITREX) 50 mg tablet 10 tablet 3 Sig: Take 1 tablet (50 mg) by mouth as needed. at onset of headache. May repeat after 2 hours.No more than 2 doses in 24 hours. No more than 10 doses in a month oxybutynin (DITROPAN) 5 mg tablet 90 tablet 5 Sig: Take 1 tablet by mouth three times a day. levETIRAcetam (KEPPRA) 500 mg tablet 60 tablet 5 Sig: Take 1 tablet by mouth two times a day. topiramate (TOPAMAX) 25 mg tablet 60 tablet 5 Sig: Take 2 tabs at hs. Date of last office visit in primary care: 02/20/2023 Date of next office visit in primary care: 06/05/2023 Please advise. Thank you. Raquel Corley RN. documented in this encounterBarney [facility]11-09-2023 History of Present illness Narrative* Christiane Watson RPFT - 02/28/2023 9:20 AM EST PULM FUNCTION SMARTBLOCK: Provider: Sung Crowe MD Assisting Tech: Christiane Watson RPFT Spirometry: 1 LV - Box: 1 documented in this encounterBarney Children'S [facility]11-01-2023 History of Present illness Narrative* Sung Crowe MD - 02/20/2023 4:29 PM EDT Patient presents with: Follow Up: Weight loss HPI: Patient presents today for office visit for follow up for weight loss. Here today with sister. Appetite is good. Per sister he is lazy and makes bad food choices. Eats a lot of junk. Per sister he's gone through 5 bags of chips in a week. Weight is up since last OV. Still smoking. States today he's only smoked 1 cigarette. Sometimes he smokes more. Lies to his sister about it. Reviewed labs and ct scans. He needs folllow up ct of his lungs in one year. His abdominal discomfort is gone. Did review the lung finding on his ct. No gi or gu complaints currently. They stil have not set up psychiatry follow up. See last OV: Complains of constant left side pain. Intermittent nausea and vomiting. Has bowel movement every couple days. Has lost 13 lbs in past 6 months. Appetite is poor. Will eat when he feels hungry. Per sister he islazy and won't make himself anything to eat. She works a lot but always makes sure there is food inthe house. She notices he is sleeping way more than he uses too. He claims he used to be more active. Was going to [employer] and sister states he no longer has the desire to go and do things. Has not scheduled with psych yet. No med changes with neurology. Some worsening of tremors. We discussed that he needs to see psychiatry. They were supposed to set up. No hallucinations or delusions. No suicidal ideation. Does do counseling when at [employer]. Smoking a lot more. Sister is upset about this. He says he smokes about 5-10 cigarettes a day. HLD: Continues on Simvastatin 20 mg daily No myalgias Continues on Omeprazole for nausea and stomach aches. No bloody or black stool. Getting pain in left side. Had been ordered a ruq us but never got it. Pain does occur every few days. Can be severe. Has had slowing of his bowel movements Has had a tubular adenoma in with last colonoscopy and was to have a repeat scope in 2023. No bloody or black stools. Rare vomiting. EGD done on 08/09/22. There is no evidence of intestinal metaplasia in the gastroesophageal junctionbiopsy. FINAL DIAGNOSIS A. Duodenum, second portion, biopsy: - No pathologic abnormalities. B. Stomach, antrum, biopsy: - Benign duodenal and gastric mucosa showing no pathologic abnormalities. C. Gastroesophageal junction, biopsy: - Acute and chronic inflammation. Sees Neurology. Migraines stable. Continues on Topiramate and started on Imitrex. Tremors have gotten a lot worse. MEDICATIONS: Current Outpatient Medications Medication Sig ARIPiprazole (ABILIFY) 10 mg tablet Take 1 tablet by mouth once daily. gabapentin (NEURONTIN) 300 mg capsule Take 1 capsule by mouth two times a day for 90 days. traZODone (DESYREL) 100 mg tablet Take 1 tablet by mouth daily at bedtime. busPIRone (BUSPAR) 15 mg tablet Take 1 tablet by mouth three times daily. simvastatin (ZOCOR) 20 mg tablet Take 1 tablet by mouth daily at bedtime. oxybutynin (DITROPAN) 5 mg tablet Take 1 tablet by mouth three times daily. topiramate (TOPAMAX) 25 mg tablet Take 1 tab at bedtime x1 week. Then increase to 2 tabs at bedtimex1 week. Then increase to 3 tabs at bedtime and continue. levETIRAcetam (KEPPRA) 500 mg tablet Take 1 tablet by mouth twice daily. propranolol ER (INDERAL LA) 80 mg 24 hr capsule Take 1 capsule by mouth once daily. propranolol (INDERAL) 10 mg tablet Take 1 tablet by mouth once daily. SUMAtriptan (IMITREX) 50 mg tablet Take 1 tablet by mouth as needed. at onset of headache. May repeat after 2 hours.No more than 2 doses in 24 hours. No more than 10 doses in a month topiramate (TOPAMAX) 25 mg tablet Take 1 tablet by mouth three times daily. Take three tablets at bedtime. omeprazole (PRILOSEC) 20 mg capsule Take 1 capsule by mouth twice daily at 6AM and 9PM. ketoconazole (NIZORAL) 2 % shampoo Apply to affected area once daily as needed. No current facility-administered medications for this visit. ALLERGIES: ALLERGIES Allergen Reactions Bee Sting Swelling Penicillin Anaphylaxis PAST MEDICAL HISTORY Diagnosis Date Anxiety Bipolar disorder (HCC) Chronic lower back pain Developmental delay sister has guardianship GERD (gastroesophageal reflux disease) Hyperlipidemia Insomnia Paranoid schizophrenia (HCC) Tobacco use Tremors of nervous system Urinary incontinence PAST SURGICAL HISTORY Procedure Laterality Date COLONOSCOPY FLX DX W/COLLJ SPEC WHEN PFRMD 07/15/2018 Colonoscopy ESOPHAGOGASTRODUODENOSCOPY TRANSORAL DIAGNOSTIC 07/15/2018 EGD PAST SURGICAL HISTORY OF nasal surgery as child TONSILLECTOMY HX FAMILY HISTORY Problem Relation Age of Onset Diabetes Mother Cancer Mother lung Cancer Father lung other (cancer) Father stomach Social History Tobacco Use Smoking status: Former Packs/day: 0.75 Years: 40.00 Additional pack years: 0.00 Total pack years: 30.00 Types: Cigarettes Start date: 08/27/1977 Quit date: 06/25/2017 Years since quittin.6 Smokeless tobacco: Never Substance Use Topics Alcohol use: Yes Alcohol/week: 2.5 standard drinks of alcohol Types: 1 Cans of Beer (12oz) per week Drug use: No Reviewed current medications, allergies, past medical history, surgical history, family history andsocial history today. REVIEW OF SYSTEMS All other reviewed and negative other than HPI. HEALTH MAINTENANCE: Reviewed health maintenance issues today and recommended the following in detail. Hepatitis B Vaccine(1 of 3 - 3-dose series) Never done Hepatitis C Screening Never done HIV Screening Never done Shingrix Vaccine(1 of 2) Never done Depression Assessment Never done Influenza Vaccine(1) due on 12/21/2022 Covid-19 Vaccine( season) due on 12/21/2022 VITALS: BP 104/64 Pulse 64 Ht 167.6 cm (5' 6") Wt 53.3 kg (117 lb 9.6 oz) SpO2 99% BMI 18.98 kg/m Last 4 Encounter Wt Readings: Date: Wt: 02/20/2023 53.3 kg (117 lb 9.6 oz) 12/12/2022 53.8 kg (118 lb 9.6 oz) 12/05/2022 52.5 kg (115 lb 12.8 oz) 06/13/2022 58.3 kg (128 lb 8 oz) PHYSICAL EXAMINATION: General appearance: Well appearing, alert, in no acute distress, well-hydrated, well nourished. Skin: Skin color, texture, turgor normal, no suspicious rashes or lesions Head: Normocephalic, no masses, lesions, tenderness or abnormalities Lungs: Lungs clear to auscultation. No wheezing, rhonchi, rales Heart: RRR without murmur, gallop, or rubs. No ectopy Abdomen: Normal abdominal exam, Abdomen soft, non-tender. Bowel sounds normal. No masses, organomegaly Extremities: No deformities, edema, skin discoloration, clubbing or cyanosis. Good capillary refill. ASSESSMENT/PLAN: 1. Weight loss - ICD9: 783.21, ICD10: R63.4 (primary diagnosis) - currently improved. Monitor closely. 2. Chronic obstructive pulmonary disease, unspecified COPD type ([facility]) - ICD9: 496, ICD10: J44.9 - stop smoking. - SPIROMETRY WITH DILATOR IF OBSTRUCTED - LUNG VOLUMES 3. Bipolar affective disorder, remission status unspecified ([facility]) - ICD9: 296.80, ICD10: F31.9 - see psychaiatry. 4. Paranoid schizophrenia ([facility]) - ICD9: 295.30, ICD10: F20.0 - see psychiatry. - LEVETIRACETAM 500 MG TABLET 5. Developmental delay - ICD9: 783.40, ICD10: R62.50 -stable. 6. Anxiety - ICD9: 300.00, ICD10: F41.9 See psych - BUSPIRONE 15 MG TABLET - TRAZODONE 100 MG TABLET 7. Need for influenza vaccination - ICD9: V04.81, ICD10: Z23 - INFLUENZA VACCINE, AGE 6 MO - 64 YR, QUADRIVALENT (AFLURIA, FLULAVAL, FLUZONE) 8. Need for vaccination - ICD9: V05.9, ICD10: Z23 - [email or web address] COVID-19 VACCINE (2022- [place]) AGE 12+ YR 9. Mixed hyperlipidemia - ICD9: 272.2, ICD10: E78.2 - Controlled - Continue current medications - SIMVASTATIN 20 MG TABLET 10. Intractable migraine without status migrainosus, unspecified migraine type - ICD9: 346.91, ICD10: G43.919 - stable - TOPIRAMATE 25 MG TABLET 11. Tremor - ICD9: 781.0, ICD10: R25.1 - stable - TOPIRAMATE 25 MG TABLET 12. Tremors of nervous system - ICD9: 781.0, ICD10: R25.1 -- stable. - PROPRANOLOL 10 MG TABLET 13. Migraine with aura, not intractable, without status migrainosus - ICD9: 346.00, ICD10: G43.109 - PROPRANOLOL 10 MG TABLET Sung Crowe MD documented in this encounterBarney [facility] Miscellaneous Notes* Telephone Encounter - Denise Alarcon LPN - 01/24/2023 3:33 PM EDT Patient sister notified of provider's instructions. Patient sister verbalizes understanding. Patient is scheduled for sooner appointment on 02/11/2023 Denise Alarcon LPN * Telephone Encounter - Denise Alarcon LPN - 01/24/2023 2:26 PM EDT Images from the original note were not included. Niraj Amos 1 hour ago (1:01 PM) I am guessing the nails are "green" maybe because of possible fungal organism. If they have any urgent issue, please have them present to the urgent center Niraj Amos DPM * Telephone Encounter - Billie Junior RN - 01/23/2023 3:03 PM EDT Patient's sister called in with concerns regarding the patient's b/l great toes. States that they have turned green. Appointment scheduled for 02/14/23 but concerned about waiting that long to be seen. States that there was discussion about removing both of them before Covid but has not followed upon this. Patient has disabilities and sister is his caregiver. Billie Junoir RN documented in this encounterBarney [facility]08-25-2023 Miscellaneous Notes* Telephone Encounter - Tricia Eaton - 12/14/2022 8:44 AM EDT Talked to patients daughter she verbally understands that he needs to have a CT scan in about a year and already has an appt with for his abdominal issues. Tricia Eaton * Telephone Encounter - Sung Crowe MD - 12/13/2022 5:[address] shows small lung nodule. Would simply recheck ct in one year. Appears ok Ct of abdomen shows a lot of stool. Cannot rule out gastritis as well. Add miralax otc daily. See surgery as we discussed. Will likely need scopes. documented in this encounterBarney [facility]08-23-2023 Instructions* Patient Instructions* Stella Lopez PA-C - 12/12/2022 12:01 PM EDT Decrease Topiramate to 50mg once a day down from 75mg Take imitrex as needed for headache (no more than 10 doses a month) Consult to movement Increase water intake to 60 ounces a day, drink electrolytes, compression Laboratory studies Follow up in three months documented in this encounterBarney [facility]08-23-2023 History of Present illness Narrative* Stella Lopez PA-C - 12/12/2022 11:22 AM EDT Images from the original note were not included. [facility] Follow up CC: Headache Follow up Last Visit: 06/13/22 ASSESSMENT/PLAN: 1. Intractable migraine without status migrainosus, unspecified migraine type - ICD9: 346.91, ICD10: G43.919 (primary diagnosis) Patient with reduction in his headaches since last visit, roughly 2 a week. Headaches migrainous innature, no red flag signs or symptoms. Improvement since starting Topamax 75mg. No side effects, tolerating this well. Will continue Topamax for preventative. Patient does note that he still gets 2 headaches a week, has tried his sisters Imitrex with complete resolution of his headaches within 15 minutes. Patient denies any history of stroke or [place], no clotting history. Patient would like to try Imitrex, Imitrex 50 mg was prescribed, discussed increased risk of stroke with patient and sister. Discussed taking with starting of headache, no more than 2 and 1 day, no more than 10 in a month. 2. Paranoid schizophrenia (HCC) - ICD9: 295.30, ICD10: F20.0 3. Anxiety - ICD9: 300.00, ICD10: F41.9 4. Bipolar 1 disorder (HCC) - ICD9: 296.7, ICD10: F31.9 Patient with tremor, longstanding use of antipsychotics. Sister notes that she has tried to follow with psychiatry in the past, has not been able to schedule an appointment and has given up. Will refer to psychiatry for further management of his psychiatric medications. 5. Tremor - ICD9: 781.0, ICD10: R25.1 Patient with intention tremor to the bilateral upper extremities, rigidity to the bilateral upper extremities, worse on the left. Likely secondary to longstanding psychiatric medication use, but would like further evaluation with movement to rule out any parkinsonian diagnosis. Patient previously on propranolol for tremor, noted bradycardia and hypotension on this. Started on Topamax 75mg at lastappointment, patient notes improvement in his tremor since starting this medication. 6. Seizure disorder? Unclear seizure history, patient currently on Keppra. Has lived with sister for the last 6 years, sister notes that she has not witnessed a seizure since living together. Patient notes that he was previously hospitalized for his epilepsy, unable to describe what seizures he has, any specific diagnosis. Educated patient and family that patient should have a seizure, to seek emergency care. Patientand family acknowledge understanding. Patient family agreeable to treatment plan of care at this time, all questions have been answered. Patient to follow-up in 6 months or sooner should any symptoms change or worsen. Stella Lopez PA-C Today: Patient is her for headache/migraine follow up. Patient was last seen 06/13/22 for migraine and tremor due to pscyhiatry medication use. Referred topsychiatry. Noted improvement in both headaches and tremor after starting topiramate 75mg, two headaches a week. Was having 2 headaches a week. Notes Imitrex resolves headache within 15 minutes. Also possible history of seizure disorder on Keppra, sister not witnessed any seizure since living. Notes weight loss at last PCP appointment. Since last visit headaches have improved. Patient notes that he only gets 1 or 2 headaches a month and these have fully resolved with Imitrex within a few minutes. Notes that he has yet to have a headache in the month of November. However, primary concern today is patient's tremor. Sister states that his tremor has not gotten any better and seems to be limiting patient's ability to function. Patient states that he drops thingsoften due to the tremor. Notes tremor to the bilateral hands, patient states is worse on his right as this is his dominant hand. Tremor seems to fluctuate throughout the day, unsure of any triggers that worsen the tremor. No head tremor, no voice tremor. Does note family history of Parkinson's withhis grandfather, but no first-degree relatives. Notes that there is nothing he can do to make it improve and tends to alleviate on its own. Patient has had about 4 falls since last appointment. Patient states that he stands up becomes lightheaded and then loses his balance causing him to fall. No episodes of syncope, no seizure-like activity. Patient is still compliant with his Keppra, 500 mg twice daily. Sister continues to endorse noseizure activity. Patient does report that daily he will get lightheaded with position change and relieved with sitting back down. Sister expresses severe concern for patient being alone while she isat work as he did fall down the stairs during 1 of these falls. Patient also has not been drinking water, sister states that it will be a good day if he drinks 1 glass of water a day. Additionally, patient does not eat throughout the day, has lost 13 pounds since last appointment. Regarding weight loss, sister notes that this began around 5 6 months ago, no known etiology he hasbeen on Topamax since February of last year. His sister notes that his primary care is doing extensive testing to find other etiologies for his weight loss. Patient notes that he has lost his appetite and does not feel hungry throughout the day. Patient denies any paresthesias, no swelling of the feet. No history of diabetes, no alcohol use. Current Headache treatment Preventative: topiramate 75mg Abortive: Imitrex Medications effective? yes # of doses of abortive medications per month: few Total headache days per month: few Total headache attacks per month: few Headache free days: Yes Duration of attacks: few hours Severity of headaches? moderate Location: right sided . Aura: None Accompanying symptoms: photophobia, phonophobia, nausea. Quality:hard to describe. Pain today: 0/10 Triggers: bright lights, weather changes, and heat. Prodrome:none. Prior Therapies Topiramate Gabapentin Propranolol The patient's prior records were reviewed including and lab testing, imaging, and procedures done since their last visit with me. Review of symptoms including constitutional, eyes, ENT, neck, respiratory, cardiovascular, GI, , musculoskeletal, hematologic, oncologic, endocrine, and psychiatric categories is unchanged. No new details in the family history or social history were offered by the patient. PAST MEDICAL HISTORY Diagnosis Date Anxiety Bipolar disorder (HCC) Chronic lower back pain Developmental delay sister has guardianship GERD (gastroesophageal reflux disease) Hyperlipidemia Insomnia Paranoid schizophrenia (HCC) Tobacco use Tremors of nervous system Urinary incontinence PAST SURGICAL HISTORY Procedure Laterality Date COLONOSCOPY FLX DX W/COLLJ SPEC WHEN PFRMD 07/15/2018 Colonoscopy ESOPHAGOGASTRODUODENOSCOPY TRANSORAL DIAGNOSTIC 07/15/2018 EGD PAST SURGICAL HISTORY OF nasal surgery as child TONSILLECTOMY HX ALLERGIES Allergen Reactions Bee Sting Swelling Penicillin Anaphylaxis Current Medications: traZODone (DESYREL) 100 mg tablet Take 1 tablet by mouth daily at bedtime. busPIRone (BUSPAR) 15 mg tablet Take 1 tablet by mouth three times daily. simvastatin (ZOCOR) 20 mg tablet Take 1 tablet by mouth daily at bedtime. oxybutynin (DITROPAN) 5 mg tablet Take 1 tablet by mouth three times daily. topiramate (TOPAMAX) 25 mg tablet Take 1 tab at bedtime x1 week. Then increase to 2 tabs at bedtimex1 week. Then increase to 3 tabs at bedtime and continue. levETIRAcetam (KEPPRA) 500 mg tablet Take 1 tablet by mouth twice daily. ARIPiprazole (ABILIFY) 10 mg tablet Take 1 tablet by mouth once daily. gabapentin (NEURONTIN) 300 mg capsule Take 1 capsule by mouth twice daily for 90 days. propranolol ER (INDERAL LA) 80 mg 24 hr capsule Take 1 capsule by mouth once daily. propranolol (INDERAL) 10 mg tablet Take 1 tablet by mouth once daily. SUMAtriptan (IMITREX) 50 mg tablet Take 1 tablet by mouth as needed. at onset of headache. May repeat after 2 hours.No more than 2 doses in 24 hours. No more than 10 doses in a month topiramate (TOPAMAX) 25 mg tablet Take 1 tablet by mouth three times daily. Take three tablets at bedtime. omeprazole (PRILOSEC) 20 mg capsule Take 1 capsule by mouth twice daily at 6AM and 9PM. ketoconazole (NIZORAL) 2 % shampoo Apply to affected area once daily as needed. Studies to Review: No New Health Issues: Yes, weight loss New Social History: No New Family History: No REVIEW OF SYSTEMS: GENERAL:No weight loss, malaise or fevers. HEENT:no changes to hearing or vision NECK:negative for neck pain, swelling. RESPIRATORY: Negative for cough, wheezing or shortness of breath. CARDIOVASCULAR: Negative for chest pain, leg swelling or palpitations. GASTROINTESTINAL: Negative for abdominal discomfort, blood in stools or black stools or change in bowel habits GENITOURINARY: No history of dysuria, frequency or incontinence MUSKULOSKELETAL: Negative for joint pain or swelling, back pain or muscle pain. SKIN:Negative for lesions, rash, and itching. HEMATOLOGIC/LYMPHATIC/IMMUNOLOGIC:Negative for prolonged bleeding, bruising easily or swollen nodes. ENDOCRINE: Negative for cold or heat intolerance, polyuria, polydipsia NEUROLOGIC:See HPI PHYSICAL EXAMINATION: BP 105/69 Pulse (!) 47 Resp 18 Wt 53.8 kg (118 lb 9.6 oz) SpO2 98% BMI 19.14 kg/m General: well appearing, in no acute distress, alert, HEENT: Normocephalic/atraumatic., Skin: Color, texture, turgor normal. No rashes or lesions, Lungs: breathing comfortably, Neurological Examination: Cognition: The patient is alert and oriented times three Lucid and organized in conversation Able to tell detailed medical hx Speech is Normal in fluency volume and clarity Content and Syntax: Normal Comprehension: Normal, able to follow several step commands Minimal expression in the face Cranial Nerves: Pupils are equal and reactive to light. Pupils normal in size Extraocular movements are grossly intact Good saccades and pursuits No nystagmus Hearing intact Good upgaze Visual mcnally are full to confrontation. Facial, motor and sensory exam is symmetric Equal v1,V2, V3 Tongue is in midline. No tongue fasciculation. Palate is upgoing bilaterally SCM and trapezius are full. Shoulder shrug intact Increased rigidity to the upper extremities bilaterally, slightly worse on the right upper extremity. Diffuse vibration loss throughout. Intact to temperature and pinprick throughout. Tremor noted to bilateral upper extremities, worse on the right upper extremity. Patient unable to follow rapid alternating movements. DTRs are intact and symmetric bilaterally. Wide-based gait Impression: ASSESSMENT/PLAN: 1. Migraine without aura and without status migrainosus, not intractable - ICD9: 346.10, ICD10: G43.009 (primary diagnosis) Patient with significant improvement in his migraines. Notes he has a few a month that are well treated with Imitrex. No new changes, stable at this time. 2. 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 Was originally improved after starting Topamax, but sister notes that he is back to his baseline and possibly even worse than before. No acute onset of worsening tremor, notes that it was gradual in nature. No weakness, but states that patient is dropping things secondary to the tremor. Patient is also on Keppra as well as Topamax, will refrain from starting any medications at this time. At this time, patient also with parkinsonian symptomswith family history of Parkinson's disease. Due to a new onset positional lightheadedness as well. We will have patient follow-up with movement for both tremor and parkinsonian symptoms. 4. Neuropathy - ICD9: 355.9, ICD10: G62.9 Vibration loss on to lower extremities and upper extremities bilaterally and equally. We will obtain basic neuropathy labs at this time. Patient currently going through multiple testing for weight loss and deferred any further testing at this time. Do suspect possible nutrition deficits as he is not eating well. May consider EMG in the future. 5. Insomnia, unspecified type - ICD9: 780.52, ICD10: G47.00 Stable 6. Lightheaded - ICD9: 780.4, ICD10: R42 Patient with positional lightheadedness, does not eat or drink water throughout the day. Sister believes that this is likely contributing to patient's symptoms. Also found to have signs of large fiber abnormalities on exam as noted above. Discussed conservative measures including increasing water intake, increasing fluid intake, slow position changes, compression. Patient agrees and understands. States he will begin drinking electrolyte drinks at home. No episodes of syncope, no seizure-like activity. 7. Weight loss Over the last 5 to 6 months, patient experiencing significant weight loss. Sister notes that he is lost about 13 to 15 pounds in the last 5 to 6 months. Was started on Topamax last February did not have weight loss after titrating up to 75 mg a day. However, as patient is reporting loss of appetitediscussed titrating down to 50 mg and then further should his headaches not worsened. Patient and sister agree with this and will reach out to primary care provider noting this regimen change. 8. Seizures Patient without any seizure activity since last appointment, sister states that she has not noted any seizure activity since patient has lived with her for many years. Patient is compliant with his Keppra 500 mg twice daily. Patient's sister agreeable to treatment plan of care at this time, all questions were answered. Patient to follow-up in 3-4 months or sooner should any symptoms change or worsen. Stella Lopez PA-C Plan: All options for treatment discussed. Preventative:Topiramate 50mg Abortive: imitrex 50mg Follow-up: 4 months I spent a total of 45 minutes on the date of the service which included preparing to see the patient, [id number] patient care, completing clinical documentation, obtaining and/or reviewing separately obtained history, performing a medically appropriate examination, counseling and educating the pat ient/family/caregiver, and ordering medications, tests, or procedures. Stella Lopez PA-C General Neurology [address] [place] [address]. [id number] Appointment: [phone] documented in this encounterBarney [facility]08-17-2023 Miscellaneous Notes* Telephone Encounter - Maryjane Salazar LPCC - 12/06/2022 10:18 AM EDT Behavioral Health Social Work Progress Note Patient identified for [facility] from: PCP Reason for referral: Resources Behavioral Health Resources: Psychiatry med management [facility] encounter type: Telephone Encounter Attempts to Outreach: 1 attempt Referral made: Psychiatry - External Psychiatry-External referral type: Medication Management Patient Discharged?: No Patient reported that caregiver was able to meet their needs today?: N/A Phone call placed today that went to [facility]. Unable to leave message as voicemail box is full. Initial outreach also completed via [employer] sending list of in network providers with insurance. OBINNA Rhoades-S December 06, 2022 documented in this encounterBarney Children'S [facility] Center08-16-2023 History of Present illness Narrative* Sung Crowe MD - 12/05/2022 3:59 PM EDT Patient presents with: 6 Month Exam HPI: Patient presents today for office visit for follow up. Here today with his sister. Complains of constant left side pain. Intermittent nausea and vomiting. Has bowel movement every couple days. Has lost 13 lbs in past 6 months. Appetite is poor. Will eat when he feels hungry. Per sister he islazy and won't make himself anything to eat. She works a lot but always makes sure there is food inthe house. She notices he is sleeping way more than he uses too. He claims he used to be more active. Was going to [employer] and sister states he no longer has the desire to go and do things. Has not scheduled with psych yet. No med changes with neurology. Some worsening of tremors. We discussed that he needs to see psychiatry. They were supposed to set up. No hallucinations or delusions. No suicidal ideation. Does do counseling when at [employer]. Smoking a lot more. Sister is upset about this. He says he smokes about 5-10 cigarettes a day. HLD: Continues on Simvastatin 20 mg daily No myalgias Continues on Omeprazole for nausea and stomach aches. No bloody or black stool. Getting pain in left side. Had been ordered a ruq us but never got it. Pain does occur every few days. Can be severe. Has had slowing of his bowel movements Has had a tubular adenoma in with last colonoscopy and was to have a repeat scope in 2023. No bloody or black stools. Rare vomiting. EGD done on 08/09/22. There is no evidence of intestinal metaplasia in the gastroesophageal junctionbiopsy. FINAL DIAGNOSIS A. Duodenum, second portion, biopsy: - No pathologic abnormalities. B. Stomach, antrum, biopsy: - Benign duodenal and gastric mucosa showing no pathologic abnormalities. C. Gastroesophageal junction, biopsy: - Acute and chronic inflammation. Sees Neurology. Migraines stable. Continues on Topiramate and started on Imitrex. Tremors have gotten a lot worse. MEDICATIONS: Current Outpatient Medications Medication Sig traZODone (DESYREL) 100 mg tablet Take 1 tablet by mouth daily at bedtime. busPIRone (BUSPAR) 15 mg tablet Take 1 tablet by mouth three times daily. simvastatin (ZOCOR) 20 mg tablet Take 1 tablet by mouth daily at bedtime. oxybutynin (DITROPAN) 5 mg tablet Take 1 tablet by mouth three times daily. topiramate (TOPAMAX) 25 mg tablet Take 1 tab at bedtime x1 week. Then increase to 2 tabs at bedtimex1 week. Then increase to 3 tabs at bedtime and continue. levETIRAcetam (KEPPRA) 500 mg tablet Take 1 tablet by mouth twice daily. ARIPiprazole (ABILIFY) 10 mg tablet Take 1 tablet by mouth once daily. gabapentin (NEURONTIN) 300 mg capsule Take 1 capsule by mouth twice daily for 90 days. propranolol ER (INDERAL LA) 80 mg 24 hr capsule Take 1 capsule by mouth once daily. propranolol (INDERAL) 10 mg tablet Take 1 tablet by mouth once daily. SUMAtriptan (IMITREX) 50 mg tablet Take 1 tablet by mouth as needed. at onset of headache. May repeat after 2 hours.No more than 2 doses in 24 hours. No more than 10 doses in a month topiramate (TOPAMAX) 25 mg tablet Take 1 tablet by mouth three times daily. Take three tablets at bedtime. omeprazole (PRILOSEC) 20 mg capsule Take 1 capsule by mouth twice daily at 6AM and 9PM. ketoconazole (NIZORAL) 2 % shampoo Apply to affected area once daily as needed. No current facility-administered medications for this visit. ALLERGIES: ALLERGIES Allergen Reactions Bee Sting Swelling Penicillin Anaphylaxis PAST MEDICAL HISTORY Diagnosis Date Anxiety Bipolar disorder (HCC) Chronic lower back pain Developmental delay sister has guardianship GERD (gastroesophageal reflux disease) Hyperlipidemia Insomnia Paranoid schizophrenia (HCC) Tobacco use Tremors of nervous system Urinary incontinence PAST SURGICAL HISTORY Procedure Laterality Date COLONOSCOPY FLX DX W/COLLJ SPEC WHEN PFRMD 07/15/2018 Colonoscopy ESOPHAGOGASTRODUODENOSCOPY TRANSORAL DIAGNOSTIC 07/15/2018 EGD PAST SURGICAL HISTORY OF nasal surgery as child TONSILLECTOMY HX FAMILY HISTORY Problem Relation Age of Onset Diabetes Mother Cancer Mother lung Cancer Father lung other (cancer) Father stomach Social History Tobacco Use Smoking status: Former Packs/day: 0.75 Years: 40.00 Additional pack years: 0.00 Total pack years: 30.00 Types: Cigarettes Start date: 08/27/1977 Quit date: 06/25/2017 Years since quittin.4 Smokeless tobacco: Never Substance Use Topics Alcohol use: Yes Alcohol/week: 2.5 standard drinks of alcohol Types: 1 Cans of Beer (12oz) per week Drug use: No Reviewed current medications, allergies, past medical history, surgical history, family history andsocial history today. REVIEW OF SYSTEMS Using nizoral shampoo. May be helping. Picks when nervous. All other reviewed and negative other than HPI. VITALS: BP 92/58 Pulse 60 Ht 167.6 cm (5' 6") Wt 52.5 kg (115 lb 12.8 oz) SpO2 99% BMI 18.69 kg/m Last 4 Encounter Wt Readings: Date: Wt: 06/13/2022 58.3 kg (128 lb 8 oz) 06/06/2022 57.2 kg (126 lb 3.2 oz) 05/30/2022 57.2 kg (126 lb) 12/22/2021 58.5 kg (129 lb) PHYSICAL EXAMINATION: General appearance: Well appearing, alert, in no acute distress, well-hydrated, well nourished. Skin: Skin color, texture, turgor normal, no suspicious rashes or lesions Head: Normocephalic, no masses, lesions, tenderness or abnormalities Chest wall. Tender over lower left chest wall. No masses. Lungs: Lungs clear to auscultation. No wheezing, rhonchi, rales Heart: RRR without murmur, gallop, or rubs. No ectopy Abdomen: soft, bowel sounds positive. Mild left upper quadrant tenderness. Extremities: No deformities, edema, skin discoloration, clubbing or cyanosis. Good capillary refill. ASSESSMENT/PLAN: 1. Weight loss - ICD9: 783.21, ICD10: R63.4 (primary diagnosis) - given weight loss, chest wall and abd pain. Get imaging May require colonoscopy early. See psych. Check labs including levels. Work on intake. Red flags for re-assessment reviewed with patient in detail. - TOPIRAMATE BLD - LEVETIRACETAM - CBC + DIFF - COMP METABOLIC PANEL - TSH BLD - PREALBUMIN BLD - URINALYSIS, WITH MICROSCOPIC - URINE CULTURE - CT ABD/PEL W IVCON - IV CONTRAST (RADIOLOGY PROCEDURE) - ENTERIC CONTRAST (RADIOLOGY PROCEDURE) - CT CHEST W IVCON - CONSULT TO GENERAL SURGERY 2. Left upper quadrant abdominal pain - ICD9: 789.02, ICD10: R10.12 - TOPIRAMATE BLD - LEVETIRACETAM - CBC + DIFF - COMP METABOLIC PANEL - URINALYSIS, WITH MICROSCOPIC - URINE CULTURE - CT ABD/PEL W IVCON - IV CONTRAST (RADIOLOGY PROCEDURE) - ENTERIC CONTRAST (RADIOLOGY PROCEDURE) 3. Tremors of nervous system - ICD9: 781.0, ICD10: R25.1 - per neuro 4. Bipolar affective disorder, remission status unspecified (HCC) - ICD9: 296.80, ICD10: F31.9 - see psych - CONSULT TO PRIMARY [facility]ARE [facility]IOR[facility] ADULT 5. Paranoid schizophrenia (HCC) - ICD9: 295.30, ICD10: F20.0 - see psych. - CONSULT TO [facility] ADULT 6. Developmental delay - ICD9: 783.40, ICD10: R62.50 - stable. 7. Anxiety - ICD9: 300.00, ICD10: F41.9 - CONSULT TO [facility] ADULT 8. Medication monitoring encounter - ICD9: V58.83, ICD10: Z51.81 - TOPIRAMATE BLD - LEVETIRACETAM 9. Screening for prostate cancer - ICD9: V76.44, ICD10: Z12.5 - Counseled on healthy diet and regular exercise - PSA/PROSTSPECAG SCRN 10. History of colonic polyps - ICD9: V12.72, ICD10: Z86.010 - CONSULT TO GENERAL SURGERY 11. Chest wall pain - ICD9: 786.52, ICD10: R07.89 - rule out mass - ENTERIC CONTRAST (RADIOLOGY PROCEDURE) - CT CHEST W IVCON 12. Intercostal pain - ICD9: 786.59, ICD10: R07.82 - as above. - ENTERIC CONTRAST (RADIOLOGY PROCEDURE) - CT CHEST W IVCON 13. Change in bowel function - ICD9: 787.99, ICD10: R19.8 - CONSULT TO GENERAL SURGERY Sung Crowe MD documented [facility]Bar[facility] Nurse Note* Maggie Donald RN - 08/09/2022 11:40 AM EDT Patient requesting something to drink. Patient discharge instruction given to family caregiver. Patient verbalized no pain, and states he is "waking up" and now realizing where he is at. Patient vitals within normal limits. IV removed no signs or symptoms of infiltration. Patient family verbalized understanding of verbal/paper instruction given. Patient ambulated and dressed without problems. Patient given instruction on activity and diet for the day-patient verbalized understanding. documented in this encounterBarney [facility] History and physical note * Jennifer Shannon MD - 08/09/2022 11:15 AM EDT UPDATED HISTORY AND PHYSICAL EXAMINATION SERVICE DATE: 08/09/2022 SERVICE TIME: 10:35 PHYSICAL EXAM MUST BE COMPLETED ON ADMISSION The History and Physical (completed in the past 30 days) has been reviewed and the patient has beenexamined. The contents accurately reflect the patient's condition with the following additions or revisions since the H&P was completed. Examination indicates no changes. This H&P can be found in the Electronic Medical Record . SIGNATURE: Jennifer Shannon MD PATIENT NAME: Justo Gusman DATE: August 09, 2022 TIME: 10:35 AM Source Note - Jennifer Shannon MD - 08/09/2022 11:15 AM EDT HISTORY AND PHYSICAL Justo Gusman 1965 REFERRING PHYSICIAN: Sung Crowe MD CHIEF COMPLAINT: Consult (GERD without esophagitis) HPI: The patient is a 56 year old male referred for endoscopy. Justo notes "stomach issues". He points to epigastric abdominal pain and dyspepsia He had EGD/colonoscopy in 2018, normal EGD, findings of sigmoid colon tubular adenoma for which he will require surveillance colonoscopy in 2023. He has occasional TOB and ETOH use. Denies dypshagia Can't chew food well, due to jaw dysfunction. Denies losing weight His father had gastric ulcers. He turns down his favorite foods because his "stomach hurts" PAST MEDICAL HISTORY Diagnosis Date Anxiety Bipolar disorder (HCC) Chronic lower back pain Developmental delay sister has guardianship GERD (gastroesophageal reflux disease) Hyperlipidemia Insomnia Paranoid schizophrenia (HCC) Tobacco use Tremors of nervous system Urinary incontinence PAST SURGICAL HISTORY Procedure Laterality Date COLONOSCOPY FLX DX W/COLLJ SPEC WHEN PFRMD 07/15/2018 Colonoscopy ESOPHAGOGASTRODUODENOSCOPY TRANSORAL DIAGNOSTIC 07/15/2018 EGD PAST SURGICAL HISTORY OF nasal surgery as child TONSILLECTOMY HX Current Outpatient Medications Medication Sig omeprazole (PRILOSEC) 20 mg capsule Take 1 capsule by mouth twice daily at 6AM and 9PM. diclofenac (VOLTAREN ARTHRITIS PAIN) 1 % topical gel Apply 4 g to affected area four times daily. To knee ARIPiprazole (ABILIFY) 10 mg tablet Take 1 tablet by mouth once daily. gabapentin (NEURONTIN) 300 mg capsule Take 1 capsule by mouth twice daily for 90 days. levETIRAcetam (KEPPRA) 500 mg tablet Take 1 tablet by mouth twice daily. topiramate (TOPAMAX) 25 mg tablet Take 1 tab at bedtime x1 week. Then increase to 2 tabs at bedtimex1 week. Then increase to 3 tabs at bedtime and continue. traZODone (DESYREL) 100 mg tablet Take 1 tablet by mouth daily at bedtime. busPIRone (BUSPAR) 15 mg tablet Take 1 tablet by mouth three times daily. simvastatin (ZOCOR) 20 mg tablet Take 1 tablet by mouth daily at bedtime. oxybutynin (DITROPAN) 5 mg tablet Take 1 tablet by mouth three times daily. ketoconazole (NIZORAL) 2 % shampoo Apply to affected area once daily as needed. propranolol ER (INDERAL LA) 80 mg 24 hr capsule Take 1 capsule by mouth once daily. propranolol (INDERAL) 10 mg tablet Take 1 tablet by mouth once daily. ALLERGIES: Bee Sting and Penicillin PERSONAL HISTORY: Social History Tobacco Use Smoking status: Former Packs/day: 0.75 Years: 40.00 Pack years: 30.00 Types: Cigarettes Start date: 08/27/1977 Quit date: 06/25/2017 Years since quittin.9 Smokeless tobacco: Never Substance Use Topics Alcohol use: Yes Alcohol/week: 2.5 standard drinks Types: 1 Cans of Beer (12oz) per week Drug use: No FAMILY HISTORY Problem Relation Age of Onset Diabetes Mother Cancer Mother lung Cancer Father lung other (cancer) Father stomach The review of systems data was entered by the nurse and reviewed by or Nursing Notes: Arnulfo Tejada LPN 06/06/2022 4:19 PM Signed REVIEW OF SYSTEMS: General: The patient denies fatigue, denies weight loss, denies weight gain, denies feeling hot, and denies feelings of cold. Eyes: The patient denies glaucoma, denies eye injury/surgery, wears glasses or contacts. Ear/Nose/Throat: The patient NOTES allergies, denies hayfever, denies ear infections, and denies bloody noses. Cardiovascular: The patient denies chest pain, denies heart disease, denies high blood pressure,denies cardiac stent, denies prior heart attack, denies irregular heart beat, NOTES high cholesterol, denies poor circulation, denies heart failure, other cardiac issues, denies claudication, denies coldfeet, denies peripheral arterial stent. Respiratory: The patient denies tuberculosis, denies pneumonia, denies frequent cough, denies pulmonary embolism, denies shortness of breath, and denies coughing up blood. Gastrointestinal: The patient denies difficulty swallowing, NOTES acid reflux, denies ulcers, denies vomiting, denies jaundice/hepatitis, denies gallbladder problems, denies black or tarry stools, denies hemorrhoids, denies bleeding from rectum, denies diverticulitis, denies constipation, denies diarrhea, denies loss of stool control, and denies hernias. Kidney/Bladder: The patient denies kidney stones, denies urine infections, and denies bloody urine. Skin: The patient denies a history of skin cancer, denies bleeding/changing moles, and denies a history of skin rash. Neurologic: The patient denies a history of epilepsy/convulsions, denies headaches, denies head/spinal injuries, and denies stroke/TIA. Psychiatric: The patient NOTES psychiatric medications, denies depression, and denies voices, denies substance abuse. Endocrine: The patient denies thyroid disorders, denies diabetes, and denies hormonal problems. Hematologic: The patient denies a history of bruising, denies bleeding, and denies anemia, denies blood clots. Infections: The patient denies a history of measles and mumps, denies rheumatic fever, and denies sexually transmitted diseases. Musculoskeletal: The patient denies back pain/injury, denies back problems, denies sciatica, NOTES knee/foot trouble, denies arthritis, or denies gout. When was patient's last Mammogram screening? N/A Last Colonoscopy: N/A Arnulfo Tejada LPN PHYSICAL EXAMINATION: General: The patient is 56 year old male, well nourished, well hydrated in no acute distress. The patient is oriented to time, place, and person. VITALS: Blood pressure 122/84, pulse 71, temperature 36.4 C (97.5 F), height 167.6 cm (5' 6"), weight 57.2 kg (126 lb 3.2 oz), SpO2 100 %. Body mass index is 20.37 kg/m . Head: Normal cephalic, atraumatic Eyes: pupils are equally round, sclera are clear/anicteric, wearing glasses Neck is supple with no tracheal deviation Respiratory: Normal respiratory excursion and pattern. Abdominal exam: benign Extremities: no clubbing, cyanosis or edema. Neuro: non focal Psych: normal mood IMPRESSION: epigastric abdominal pain. PLAN: I have discussed the above with the patient and his sister who is his primary centrifugal station operator who is present with him I have offered EGD, possible biopsies I have explained the procedure to the patient. I have counseled the patient as to the risks of the procedure, including but not limited to: infection, bleeding, perforation of the GI tract, injury to any intraabdominal organs such as the liver/spleen, inability to complete the procedure, complications of anesthesia, etc. - the patient understands. I will also order an US RUQ abdomen. The patient wishes to proceed. I have answered all questions to the patient s satisfaction and the patient has no further questions. Diagnoses: (R10.13) Epigastric abdominal pain (primary encounter diagnosis) (K21.9) GERD without esophagitis (K29.70) Gastritis without bleeding, unspecified chronicity, unspecified gastritis type Jennifer Shannon MD * Jennifer Shannon MD - 08/09/2022 11:15 AM EDT HISTORY AND PHYSICAL Justo Gusman 1965 REFERRING PHYSICIAN: Sung Crowe MD CHIEF COMPLAINT: Consult (GERD without esophagitis) HPI: The patient is a 56 year old male referred for endoscopy. Justo notes "stomach issues". He points to epigastric abdominal pain and dyspepsia He had EGD/colonoscopy in 2018, normal EGD, findings of sigmoid colon tubular adenoma for which he will require surveillance colonoscopy in 2023. He has occasional TOB and ETOH use. Denies dypshagia Can't chew food well, due to jaw dysfunction. Denies losing weight His father had gastric ulcers. He turns down his favorite foods because his "stomach hurts" PAST MEDICAL HISTORY Diagnosis Date Anxiety Bipolar disorder (HCC) Chronic lower back pain Developmental delay sister has guardianship GERD (gastroesophageal reflux disease) Hyperlipidemia Insomnia Paranoid schizophrenia (HCC) Tobacco use Tremors of nervous system Urinary incontinence PAST SURGICAL HISTORY Procedure Laterality Date COLONOSCOPY FLX DX W/COLLJ SPEC WHEN PFRMD 07/15/2018 Colonoscopy ESOPHAGOGASTRODUODENOSCOPY TRANSORAL DIAGNOSTIC 07/15/2018 EGD PAST SURGICAL HISTORY OF nasal surgery as child TONSILLECTOMY HX Current Outpatient Medications Medication Sig omeprazole (PRILOSEC) 20 mg capsule Take 1 capsule by mouth twice daily at 6AM and 9PM. diclofenac (VOLTAREN ARTHRITIS PAIN) 1 % topical gel Apply 4 g to affected area four times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 Tobacco use Tremors of nervous system Urinary incontinence FAMILY HISTORY Problem Relation Age of Onset Diabetes Mother Cancer Mother lung Cancer Father lung other (cancer) Father stomach SOCIAL HISTORY Social History Tobacco Use Smoking status: Former Packs/day: 0.75 Years: 40.00 Pack years: 30.00 Types: Cigarettes Start date: 08/27/1977 Quit date: 06/25/2017 Years since quittin.9 Smokeless tobacco: Never Substance Use Topics Alcohol use: Yes Alcohol/week: 2.5 standard drinks Types: 1 Cans of Beer (12oz) per week Drug use: No PHYSICAL EXAMINATION BP 116/73 Pulse (!) 50 Temp 36.3 C (97.3 F) Resp 16 Wt 58.3 kg (128 lb 8 oz) SpO2 96% BMI 20.74 kg/m GENERAL EXAM: General appearance: NAD, pleasant. Minimal expression to face. HEENT: NC/AT, nasal congestion absent, no oral lesions, membranes moist. Multiple missing teeth NECK: No masses, supple. FROM Lungs: Breathing comfortably Extr: Moves all extremities without difficulty Skin: Cool to touch. No rash. NEUROLOGICAL EXAM: General: Awake, alert, oriented x3 (person,place,time), speech fluent, no dysarthria; comprehension, naming, repetition intact. Short and roasterman memory intact. CN: PERRL, EOMI and without nystagmus, VF not tested due to patient cognitive baseline, facial sensation is normal and intact bilaterally, patient would not cooperate with facial muscle testing (sister notes that he moves facial muscles at home equally), hearing is intact to finger rub bilaterally,palate and tongue movements are intact and symmetric. SCM and trapezius strength normal. Motor: Normal bulk and strength (5/5) bilaterally (throughout extremities x4). Rigidity appreciatedto the bilateral upper extremities, more prominent on the left. Normal tone to lower extremities Reflexes: 2/4 and symmetric Coordination: FNF intact, heal to nettles intact. Intention tremor with finger to nose bilaterally. Sensation: LT intact. No evidence of neglect. Gait: wide based gait, no shuffling. Decreased arm swing bilaterally. Romberg normal. Assessment and Plan: ASSESSMENT/PLAN: 1. Intractable migraine without status migrainosus, unspecified migraine type - ICD9: 346.91, ICD10: G43.919 (primary diagnosis) Patient with reduction in his headaches since last visit, roughly 2 a week. Headaches migrainous innature, no red flag signs or symptoms. Improvement since starting Topamax 75mg. No side effects, tolerating this well. Will continue Topamax for preventative. Patient does note that he still gets 2 headaches a week, has tried his sisters Imitrex with complete resolution of his headaches within 15 minutes. Patient denies any history of stroke or [place], no clotting history. Patient would like to try Imitrex, Imitrex 50 mg was prescribed, discussed increased risk of stroke with patient and sister. Discussed taking with starting of headache, no more than 2 and 1 day, no more than 10 in a month. 2. Paranoid schizophrenia (HCC) - ICD9: 295.30, ICD10: F20.0 3. Anxiety - ICD9: 300.00, ICD10: F41.9 4. Bipolar 1 disorder (HCC) - ICD9: 296.7, ICD10: F31.9 Patient with tremor, longstanding use of antipsychotics. Sister notes that she has tried to follow with psychiatry in the past, has not been able to schedule an appointment and has given up. Will refer to psychiatry for further management of his psychiatric medications. 5. Tremor - ICD9: 781.0, ICD10: R25.1 Patient with intention tremor to the bilateral upper extremities, rigidity to the bilateral upper extremities, worse on the left. Likely secondary to longstanding psychiatric medication use, but would like further evaluation with movement to rule out any parkinsonian diagnosis. Patient previously on propranolol for tremor, noted bradycardia and hypotension on this. Started on Topamax 75mg at lastappointment, patient notes improvement in his tremor since starting this medication. 6. Seizure disorder? Unclear seizure history, patient currently on Keppra. Has lived with sister for the last 6 years, sister notes that she has not witnessed a seizure since living together. Patient notes that he was previously hospitalized for his epilepsy, unable to describe what seizures he has, any specific diagnosis. Educated patient and family that patient should have a seizure, to seek emergency care. Patientand family acknowledge understanding. Patient family agreeable to treatment plan of care at this time, all questions have been answered. Patient to follow-up in 6 months or sooner should any symptoms change or worsen. Stella Lopez PA-C I spent a total of 45 minutes on the date of the service which included preparing to see the patient, [id number] patient care, completing clinical documentation, obtaining and/or reviewing separately obtained history, performing a medically appropriate examination, counseling and educating the pat ient/family/caregiver, and ordering medications, tests, or procedures. This document has been created with the use of voice recognition technology. It may contain inaccuracies: (e.g. misspellings, inaccurate syntax or word sense) that have escaped review. documented in this encounterBarney Children'S [facility] Center02-15-2023 History of Present illness Narrative* Jennifer Shannon MD - 06/06/2022 4:38 PM EST HISTORY AND PHYSICAL Justo Gusman 1965 REFERRING PHYSICIAN: Sung Crowe MD CHIEF COMPLAINT: Consult (GERD without esophagitis) HPI: The patient is a 56 year old male referred for endoscopy. Justo notes "stomach issues". He points to epigastric abdominal pain and dyspepsia He had EGD/colonoscopy in 2019, normal EGD, findings of sigmoid colon tubular adenoma for which he will require surveillance colonoscopy in 2023. He has occasional TOB and ETOH use. Denies dypshagia Can't chew food well, due to jaw dysfunction. Denies losing weight His father had gastric ulcers. He turns down his favorite foods because his "stomach hurts" PAST MEDICAL HISTORY Diagnosis Date Anxiety Bipolar disorder (HCC) Chronic lower back pain Developmental delay sister has guardianship GERD (gastroesophageal reflux disease) Hyperlipidemia Insomnia Paranoid schizophrenia (HCC) Tobacco use Tremors of nervous system Urinary incontinence PAST SURGICAL HISTORY Procedure Laterality Date COLONOSCOPY FLX DX W/COLLJ SPEC WHEN PFRMD 07/15/2018 Colonoscopy ESOPHAGOGASTRODUODENOSCOPY TRANSORAL DIAGNOSTIC 07/15/2018 EGD PAST SURGICAL HISTORY OF nasal surgery as child TONSILLECTOMY HX Current Outpatient Medications Medication Sig omeprazole (PRILOSEC) 20 mg capsule Take 1 capsule by mouth twice daily at 6AM and 9PM. diclofenac (VOLTAREN ARTHRITIS PAIN) 1 % topical gel Apply 4 g to affected area four times daily. To knee ARIPiprazole (ABILIFY) 10 mg tablet Take 1 tablet by mouth once daily. gabapentin (NEURONTIN) 300 mg capsule Take 1 capsule by mouth twice daily for 90 days. levETIRAcetam (KEPPRA) 500 mg tablet Take 1 tablet by mouth twice daily. topiramate (TOPAMAX) 25 mg tablet Take 1 tab at bedtime x1 week. Then increase to 2 tabs at bedtimex1 week. Then increase to 3 tabs at bedtime and continue. traZODone (DESYREL) 100 mg tablet Take 1 tablet by mouth daily at bedtime. busPIRone (BUSPAR) 15 mg tablet Take 1 tablet by mouth three times daily. simvastatin (ZOCOR) 20 mg tablet Take 1 tablet by mouth daily at bedtime. oxybutynin (DITROPAN) 5 mg tablet Take 1 tablet by mouth three times daily. ketoconazole (NIZORAL) 2 % shampoo Apply to affected area once daily as needed. propranolol ER (INDERAL LA) 80 mg 24 hr capsule Take 1 capsule by mouth once daily. propranolol (INDERAL) 10 mg tablet Take 1 tablet by mouth once daily. ALLERGIES: Bee Sting and Penicillin PERSONAL HISTORY: Social History Tobacco Use Smoking status: Former Packs/day: 0.75 Years: 40.00 Pack years: 30.00 Types: Cigarettes Start date: 08/27/1977 Quit date: 06/25/2017 Years since quittin.9 Smokeless tobacco: Never Substance Use Topics Alcohol use: Yes Alcohol/week: 2.5 standard drinks Types: 1 Cans of Beer (12oz) per week Drug use: No FAMILY HISTORY Problem Relation Age of Onset Diabetes Mother Cancer Mother lung Cancer Father lung other (cancer) Father stomach The review of systems data was entered by the nurse and reviewed by or Nursing Notes: Arnulfo Tejada LPN 06/06/2022 4:19 PM Signed REVIEW OF SYSTEMS: General: The patient denies fatigue, denies weight loss, denies weight gain, denies feeling hot, and denies feelings of cold. Eyes: The patient denies glaucoma, denies eye injury/surgery, wears glasses or contacts. Ear/Nose/Throat: The patient NOTES allergies, denies hayfever, denies ear infections, and denies bloody noses. Cardiovascular: The patient denies chest pain, denies heart disease, denies high blood pressure,denies cardiac stent, denies prior heart attack, denies irregular heart beat, NOTES high cholesterol, denies poor circulation, denies heart failure, other cardiac issues, denies claudication, denies coldfeet, denies peripheral arterial stent. Respiratory: The patient denies tuberculosis, denies pneumonia, denies frequent cough, denies pulmonary embolism, denies shortness of breath, and denies coughing up blood. Gastrointestinal: The patient denies difficulty swallowing, NOTES acid reflux, denies ulcers, denies vomiting, denies jaundice/hepatitis, denies gallbladder problems, denies black or tarry stools, denies hemorrhoids, denies bleeding from rectum, denies diverticulitis, denies constipation, denies diarrhea, denies loss of stool control, and denies hernias. Kidney/Bladder: The patient denies kidney stones, denies urine infections, and denies bloody urine. Skin: The patient denies a history of skin cancer, denies bleeding/changing moles, and denies a history of skin rash. Neurologic: The patient denies a history of epilepsy/convulsions, denies headaches, denies head/spinal injuries, and denies stroke/TIA. Psychiatric: The patient NOTES psychiatric medications, denies depression, and denies voices, denies substance abuse. Endocrine: The patient denies thyroid disorders, denies diabetes, and denies hormonal problems. Hematologic: The patient denies a history of bruising, denies bleeding, and denies anemia, denies blood clots. Infections: The patient denies a history of measles and mumps, denies rheumatic fever, and denies sexually transmitted diseases. Musculoskeletal: The patient denies back pain/injury, denies back problems, denies sciatica, NOTES knee/foot trouble, denies arthritis, or denies gout. When was patient's last Mammogram screening? N/A Last Colonoscopy: N/A Arnulfo Tejada LPN PHYSICAL EXAMINATION: General: The patient is 56 year old male, well nourished, well hydrated in no acute distress. The patient is oriented to time, place, and person. VITALS: Blood pressure 122/84, pulse 71, temperature 36.4 C (97.5 F), height 167.6 cm (5' 6"), weight 57.2 kg (126 lb 3.2 oz), SpO2 100 %. Body mass index is 20.37 kg/m . Head: Normal cephalic, atraumatic Eyes: pupils are equally round, sclera are clear/anicteric, wearing glasses Neck is supple with no tracheal deviation Respiratory: Normal respiratory excursion and pattern. Abdominal exam: benign Extremities: no clubbing, cyanosis or edema. Neuro: non focal Psych: normal mood Assessment IMPRESSION: epigastric abdominal pain. PLAN: I have discussed the above with the patient and his sister who is his primary centrifugal station operator who is present with him I have offered EGD, possible biopsies I have explained the procedure to the patient. I have counseled the patient as to the risks of the procedure, including but not limited to: infection, bleeding, perforation of the GI tract, injury to any intraabdominal organs such as the liver/spleen, inability to complete the procedure, complications of anesthesia, etc. - the patient understands. I will also order an US RUQ abdomen. The patient was offered a surgery/procedure at a [facility] facility. The provider and patient have discussed in detail the risk of exposure to and/or potential harm posed by the COVID-19 viruswith having a surgery/procedure at this time versus the risk of delaying the surgery/procedure. It is not possible to know either the risk of delaying the surgery or procedure or chance of getting aninfection with perfect accuracy, but a joint decision was made between the patient and the providerto proceed at this time with the scheduled surgery/procedure. The patient wishes to proceed. I have answered all questions to the patient s satisfaction and the patient has no further questions. Diagnoses: (R10.13) Epigastric abdominal pain (primary encounter diagnosis) (K21.9) GERD without esophagitis (K29.70) Gastritis without bleeding, unspecified chronicity, unspecified gastritis type I have confirmed and edited as necessary, the PFSH and ROS obtained by others. Consultation requested by Dr. Sung Crowe for an opinion regarding patient's abdominal pain. My final recommendations will be communicated back to the requesting physician by way of shared Medical record or letter to requesting physician via US mail. Return to Clinic: The patient will be scheduled for EGD at [facility]. I spent a total of 35 minutes on the date of the service which included preparing to see the patient with review of any pertinent laboratory studies/radiological imaging/medical records obtaining oral medical history from the patient in this encounter, counseling and educating the patient/family/car egiver, and ordering and/or scheduling of medications/tests/procedures, and completing appropriate medical documentation. Jennifer Shannon MD documented in this encounterBarney [facility]02-[facility] Nurse Note* Arnulfo Tejada LPN - 06/06/2022 4:15 PM EST REVIEW OF SYSTEMS: General: The patient denies fatigue, denies weight loss, denies weight gain, denies feeling hot, and denies feelings of cold. Eyes: The patient denies glaucoma, denies eye injury/surgery, wears glasses or contacts. Ear/Nose/Throat: The patient NOTES allergies, denies hayfever, denies ear infections, and denies bloody noses. Cardiovascular: The patient denies chest pain, denies heart disease, denies high blood pressure,denies cardiac stent, denies prior heart attack, denies irregular heart beat, NOTES high cholesterol, denies poor circulation, denies heart failure, other cardiac issues, denies claudication, denies coldfeet, denies peripheral arterial stent. Respiratory: The patient denies tuberculosis, denies pneumonia, denies frequent cough, denies pulmonary embolism, denies shortness of breath, and denies coughing up blood. Gastrointestinal: The patient denies difficulty swallowing, NOTES acid reflux, denies ulcers, denies vomiting, denies jaundice/hepatitis, denies gallbladder problems, denies black or tarry stools, denies hemorrhoids, denies bleeding from rectum, denies diverticulitis, denies constipation, denies diarrhea, denies loss of stool control, and denies hernias. Kidney/Bladder: The patient denies kidney stones, denies urine infections, and denies bloody urine. Skin: The patient denies a history of skin cancer, denies bleeding/changing moles, and denies a history of skin rash. Neurologic: The patient denies a history of epilepsy/convulsions, denies headaches, denies head/spinal injuries, and denies stroke/TIA. Psychiatric: The patient NOTES psychiatric medications, denies depression, and denies voices, denies substance abuse. Endocrine: The patient denies thyroid disorders, denies diabetes, and denies hormonal problems. Hematologic: The patient denies a history of bruising, denies bleeding, and denies anemia, denies blood clots. Infections: The patient denies a history of measles and mumps, denies rheumatic fever, and denies sexually transmitted diseases. Musculoskeletal: The patient denies back pain/injury, denies back problems, denies sciatica, NOTES knee/foot trouble, denies arthritis, or denies gout. When was patient's last Mammogram screening? N/A Last Colonoscopy: N/A Arnulfo Tejada LPN documented in this encounterBarney [facility]02-08-2023 History of Present illness Narrative* Sung Crowe MD - 05/30/2022 3:49 PM EST Patient presents with: Follow Up HPI: Patient presents today for office visit for follow up. Still complains of left knee pain. Some days pain is excruciating. Constant dull ache. Falls frequently according to sister. His left leg "gives out". Takes Meloxicam every morning. Hurting so bad sometimes he'll take another one at night. Had xrays that showed degenerative changes. Was on steroids at one point. Saw Dr. Glynn (Neuro) on 03/09/22 for tremors and headaches. Started on Topiramate. States it's helped some but not a lot. No seizures. Does not go to [employer] in the winter time. Doesn't want to bring home germs. He misses going though. Doing well on his meds. No longer trying to get into counseling center per his sister. 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 No new behaviors. Denies chest pain and shortness of breath G.I: Frequent stomachaches. Nausea. Episodes sometimes last all day. Omeprazole calms symptoms usually within a couple hours but they do not completely go away. Sometimes has to take 2 omeprazole. Does not bother him daily but has been an issue up to three times a week. About four times a month he can't eat due to discomfort. Rare etoh. No bloody or black stools. No dysphagia. Is on meloxicam. Has been going on for a while. MEDICATIONS: Current Outpatient Medications Medication Sig ARIPiprazole (ABILIFY) 10 mg tablet Take 1 tablet by mouth once daily. gabapentin (NEURONTIN) 300 mg capsule Take 1 capsule by mouth twice daily for 90 days. levETIRAcetam (KEPPRA) 500 mg tablet Take 1 tablet by mouth twice daily. topiramate (TOPAMAX) 25 mg tablet Take 1 tab at bedtime x1 week. Then increase to 2 tabs at bedtimex1 week. Then increase to 3 tabs at bedtime and continue. omeprazole (PRILOSEC) 20 mg capsule Take 1 capsule by mouth once daily. meloxicam (MOBIC) 15 mg tablet Take 1 tablet by mouth once daily. traZODone (DESYREL) 100 mg tablet Take 1 tablet by mouth daily at bedtime. busPIRone (BUSPAR) 15 mg tablet Take 1 tablet by mouth three times daily. simvastatin (ZOCOR) 20 mg tablet Take 1 tablet by mouth daily at bedtime. oxybutynin (DITROPAN) 5 mg tablet Take 1 tablet by mouth three times daily. ketoconazole (NIZORAL) 2 % shampoo Apply to affected area once daily as needed. propranolol ER (INDERAL LA) 80 mg 24 hr capsule Take 1 capsule by mouth once daily. propranolol (INDERAL) 10 mg tablet Take 1 tablet by mouth once daily. No current facility-administered medications for this visit. ALLERGIES: ALLERGIES Allergen Reactions Bee Sting Swelling Penicillin Anaphylaxis PAST MEDICAL HISTORY Diagnosis Date Anxiety Bipolar disorder (HCC) Chronic lower back pain Developmental delay sister has guardianship GERD (gastroesophageal reflux disease) Hyperlipidemia Insomnia Paranoid schizophrenia (HCC) Tobacco use Tremors of nervous system Urinary incontinence PAST SURGICAL HISTORY Procedure Laterality Date COLONOSCOPY FLX DX W/COLLJ SPEC WHEN PFRMD 07/15/2018 Colonoscopy ESOPHAGOGASTRODUODENOSCOPY TRANSORAL DIAGNOSTIC 07/15/2018 EGD PAST SURGICAL HISTORY OF nasal surgery as child TONSILLECTOMY HX FAMILY HISTORY Problem Relation Age of Onset Diabetes Mother Cancer Mother lung Cancer Father lung other (cancer) Father stomach Social History Tobacco Use Smoking status: Former Packs/day: 0.75 Years: 40.00 Pack years: 30.00 Types: Cigarettes Start date: 08/27/1977 Quit date: 06/25/2017 Years since quittin.9 Smokeless tobacco: Never Substance Use Topics Alcohol use: Yes Alcohol/week: 2.5 standard drinks Types: 1 Cans of Beer (12oz) per week Drug use: No Reviewed current medications, allergies, past medical history, surgical history, family history andsocial history today. REVIEW OF SYSTEMS All other reviewed and negative other than HPI. HEALTH MAINTENANCE: Reviewed health maintenance issues today and recommended the following in detail. LUNG CANCER SCREENING COVID-19 VACCINE(3 - Booster for Moderna series) due on 11/30/2020 INFLUENZA(1) due on 12/21/2021 VITALS: BP 102/62 Pulse (!) 51 Ht 167.6 cm (5' 6") Wt 57.2 kg (126 lb) SpO2 99% BMI 20.34 kg/m Last 4 Encounter Wt Readings: Date: Wt: 12/22/2021 58.5 kg (129 lb) 08/25/2021 59.7 kg (131 lb 9.6 oz) 02/25/2020 57.3 kg (126 lb 6.4 oz) 11/04/2019 55.8 kg (123 lb) PHYSICAL EXAMINATION: General appearance: Well appearing, alert, in no acute distress, well-hydrated, well nourished. Skin: Skin color, texture, turgor normal, no suspicious rashes or lesions Head: Normocephalic, no masses, lesions, tenderness or abnormalities Eyes: Anicteric sclera. Pupils are equally round and reactive to light. Extraocular movements are intact. Lungs: Lungs clear to auscultation. No wheezing, rhonchi, rales Heart: RRR without murmur, gallop, or rubs. No ectopy Abdomen: Normal abdominal exam, Abdomen soft, non-tender. Bowel sounds normal. No masses, organomegaly Extremities: No deformities, edema, skin discoloration, clubbing or cyanosis. Good capillary refill. Musculoskeletal: No joint swelling, deformity, or tenderness ASSESSMENT/PLAN: 1. Acute pain of left knee - ICD9: 719.46, ICD10: M25.562 (primary diagnosis) - Discussed risks and benefits of new medication with the patient. Advised them to call if any sideeffects or questions. - CONSULT TO ORTHOPAEDICS - DICLOFENAC 1 % TOPICAL GEL 2. GERD without esophagitis - ICD9: 530.81, ICD10: K21.9 - increase prilosec. See surgery, stop meloxicam - OMEPRAZOLE 20 MG CAPSULE,DELAYED RELEASE - CONSULT TO GENERAL SURGERY 3. Gastritis without bleeding, unspecified chronicity, unspecified gastritis type - ICD9: 535.50, ICD10: K29.70 - OMEPRAZOLE 20 MG CAPSULE,DELAYED RELEASE - CONSULT TO GENERAL SURGERY 4. Need for influenza vaccination - ICD9: V04.81, ICD10: Z23 - INFLUENZA VACCINE QUADRIVALENT 6 MO - 64 YRS IM 5. Need for vaccination - ICD9: V05.9, ICD10: Z23 - PFIZER-BIONTECH COVID-19 BIVALENT BOOSTER VACCINE, AGE 12+ YR 6. Tremors of nervous system - ICD9: 781.0, ICD10: R25.1 - per neuro 7. Paranoid schizophrenia (HCC) - ICD9: 295.30, ICD10: F20.0 - stable 8. Bipolar affective disorder, remission status unspecified (HCC) - ICD9: 296.80, ICD10: F31.9 - stable. 9. Tobacco use - ICD9: 305.1, ICD10: Z72.0 - CONSULT LUNG CANCER SCREENING CLINIC Sung Crowe MD RTO in six months documented in this encounterBarney [facility]12-07-2022 Miscellaneous Notes* Telephone Encounter - Anne-Marie Faith LPN - 03/28/2022 10:02 AM EST Pt's sister Natanael Acevedo calling for refills for pt. BAKARI: 12/22/21 NOV: None scheduled Anne-Marie Faith LPN documented in this encounterBarney Children'S [facility] Center11-18-2022 Miscellaneous Notes* Telephone Encounter - Yomi Irwin LPN - 03/09/2022 4:35 PM EST Pt sister notified. Yomi Irwin LPN * Telephone Encounter - Sung Crowe MD - 03/09/2022 4:27 PM EST If fever, severe pain, nausea or vomiting, needs to let us know. If bad, needs seen at ER or urgentcare over the weekend * Telephone Encounter - Cathy Lambert RN - 03/09/2022 3:53 PM EST Sister calls to cancel appointment for this afternoon. Patient isn't feeling well and doesn't want to get out of bed to come in. Patient has been complaining of stomach cramping and feeling sick to stomach. She reports patient is mentally challenged so difficult to get to do things when he doesn't want to. She reports father had stomach ulcers so is thinking patient might have them as well. She is wanting to get patient scheduled with provider as soon as possible. Rescheduled for 03/16/2022. Cathy Lambert RN documented in this encounterBarney Children'S Medical Center11-08-2022 Miscellaneous Notes* Telephone Encounter - Katy Peace RN - 02/27/2022 3:35 PM EST Patient has been identified by name and date of : Yes Salma phones for refill(s): Requested Prescriptions Pending Prescriptions Disp Refills omeprazole (PRILOSEC) 20 mg capsule 30 capsule 5 Sig: Take 1 capsule by mouth once daily. meloxicam (MOBIC) 15 mg tablet 30 tablet 5 Sig: Take 1 tablet by mouth once daily. traZODone (DESYREL) 100 mg tablet 30 tablet 5 Sig: Take 1 tablet by mouth daily at bedtime. busPIRone (BUSPAR) 15 mg tablet 90 tablet 5 Sig: Take 1 tablet by mouth three times daily. simvastatin (ZOCOR) 20 mg tablet 30 tablet 5 Sig: Take 1 tablet by mouth daily at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 Primary Loss of weight Chronic obstructive pulmonary disease, unspecified COPD type (HCC) Bipolar affective disorder, remission status unspecified (HCC) Paranoid schizophrenia (HCC) Paranoid schizophrenia, unspecified condition Developmental delay Lack of normal physiological development, unspecified Anxiety Anxiety state, unspecified Need for influenza vaccination Need for prophylactic vaccination and inoculation against influenza Need for vaccination Need for prophylactic vaccination and inoculation against unspecified single disease Mixed hyperlipidemia Intractable migraine without status migrainosus, unspecified migraine type Tremor Abnormal involuntary movements Tremors of nervous system Abnormal involuntary movements Migraine with aura, not intractable, without status migrainosus documented in this encounter [facility]* Diagnosis Chronic obstructive pulmonary disease, unspecified COPD type (HCC) documented in this encounter [facility] Diagnosis Chronic obstructive pulmonary disease, unspecified COPD type (HCC) documented in this encounter [facility]* Diagnosis GERD without esophagitis Esophageal reflux Gastritis without bleeding, unspecified chronicity, unspecified gastritis type Mixed hyperlipidemia Anxiety Anxiety state, unspecified Paranoid schizophrenia (HCC) Paranoid schizophrenia, unspecified condition Intractable migraine without status migrainosus, unspecified migraine type Tremor Abnormal involuntary movements [facility]* Diagnosis Abdominal pain, unspecified abdominal location- Primary Chronic pain of left knee Pain in joint, lower leg Foreign body of right knee Dyspepsia Dyspepsia and other specified disorders of function of stomach Nausea Nausea alone Seborrheic keratoses Other seborrheic keratosis documented in this encounter [facility]* Diagnosis Migraine without aura and without status migrainosus, not intractable- Primary Migraine without aura, without mention of intractable migraine without mention of status migrainosus Action tremor Essential and other specified forms of tremor Drug-induced tremor Abnormal involuntary movements Neuropathy Mononeuritis of unspecified site History of seizure [Z87.898 (ICD-10-CM)] Personal history of other disorders of nervous system and sense organs Lightheaded Dizziness and giddiness Insomnia, unspecified type Encounter for long-term (current) use of medications Encounter for long-term (current) use of other medications documented in this encounter [facility]* Diagnosis Paranoid schizophrenia (HCC) Paranoid schizophrenia, unspecified condition Chronic pain of left knee Pain in joint, lower leg documented in this encounter [facility]* Diagnosis Chronic pain of left knee Pain in joint, lower leg documented in this encounter [facility]* Diagnosis Mixed hyperlipidemia Anxiety Anxiety state, unspecified Intractable migraine without status migrainosus, unspecified migraine type Tremor Abnormal involuntary movements documented in this encounter [facility]* Diagnosis Paranoid schizophrenia (HCC) Paranoid schizophrenia, unspecified condition documented in this encounter [facility]* Diagnosis Chronic pain of left knee Pain in joint, lower leg documented in this encounter [facility] Diagnosis Acute pain of right shoulder documented in this encounter [facility]* Diagnosis Intractable migraine without status migrainosus, unspecified migraine type- Primary History of seizure [Z87.898 (ICD-10-CM)] Personal history of other disorders of nervous system and sense organs Tremor Abnormal involuntary movements Insomnia, unspecified type Bipolar 1 disorder (HCC) Bipolar I disorder, most recent episode (or current) unspecified Anxiety Anxiety state, unspecified Lightheaded Dizziness and giddiness Neuropathy Mononeuritis of unspecified site Poor appetite Anorexia Abnormal weight loss Loss of weight Abdominal pain, unspecified abdominal location [facility] Diagnosis Paranoid schizophrenia (HCC) Paranoid schizophrenia, unspecified condition Chronic pain of left knee Pain in joint, lower leg documented in this encounter [facility]* Diagnosis Acute pain of left knee- Primary Paranoid schizophrenia (HCC) Paranoid schizophrenia, unspecified condition Mixed hyperlipidemia Anxiety Anxiety state, unspecified Encounter for immunization Need for other specified prophylactic vaccination against single bacterial disease Chronic knee instability, left Migraine without aura, intractable, without status migrainosus OAB (overactive bladder) Hypertonicity of bladder Screening for depression Special screening examination for viral disease Special screening examination for unspecified viral disease Tobacco abuse Tobacco use disorder documented in this encounter [facility]* Diagnosis Chronic knee instability, left documented in this encounter [facility]* Diagnosis Pain in both knees, unspecified chronicity documented in this encounter [facility]* Diagnosis Osteoarthritis of knee, unilateral- Primary Osteoarthritis of left knee, unspecified osteoarthritis type Genu varum of left lower extremity Effusion of left knee Effusion of lower leg joint documented in this encounter [facility]* Diagnosis Rash- Primary Rash and other nonspecific skin eruption [facility] this [facility]* Diagnosis Osteoarthritis of left knee, unspecified osteoarthritis type- Primary Genu varum of left lower extremity Effusion of left knee Effusion of lower leg joint Tobacco use Tobacco use disorder [facility] this encounter [facility] Diagnosis Chronic pain of left knee Pain in joint, lower leg GERD without esophagitis Esophageal reflux Gastritis without bleeding, unspecified chronicity, unspecified gastritis type documented in this encounter [facility] noteNo assessment information availableWBarney Children's Medical Center Work Phone: [facility] for referral (narrative)* Diagnostic Procedure Only (Routine) - Closed Specialty Diagnoses / Procedures Referred By Contac t Referred To Contact XR IMAGING Diagnoses Acute pain of right shoulder Procedures XR SHOULDER GENERAL 3V OR MORE AP/TRUE AP/OTHER RIGHT RADEX SHOULDER COMPLETE MINIMUM 2 VIEWS Sung Crowe MD [address] [place] [address] Xr Imaging Referral ID Status Reason Start Date Expiration Date V isits Requested Visits Authorized [id number] Closed Auto-Generate d Referral 08/25/2021 09/24/[address] [facility] for referral (narrative)* Diagnostic Procedure Only (Routine) - Authorized Specialty Diagnoses / Procedures Referred By Contac t Referred To Contact US IMAGING Diagnoses Epigastric abdominal pain Procedures US ABD RT UPPER QUADRANT US ABDOMINAL REAL TIME W/IMAGE LIMITED Jennifer Shannon MD [address] [facility] [place] [address] Us Imaging Referral ID Status Reason Start Date Expiration Date Visits Requested Visits Authorized [id number] Authorized Auto-Generat ed Referral 06/06/2022 07/06/[address] [facility] for referral (narrative)* Outpatient Procedure (Routine) - Closed Specialty Diagnoses / Procedures Referred By Contac t Referred To Contact GENERAL SURGERY Diagnoses Epigastric abdominal pain Procedures EGD DIAGNOSTIC ESOPHAGOGASTRODUODENOSCOP Y TRANSORAL DIAGNOSTIC Jennifer Shannon MD [address] [place] [address] Jennifer Shannon MD [address] [facility] [address] Referral ID Status Reason Start Date Expiration Date V isits Requested Visits Authorized [id number] Closed Auto-Generate d Referral 06/22/2022 06/23/[address] [facility] for referral (narrative)* Outpatient Procedure (Routine) - Pending Review Specialty Diagnoses / Procedures Referred By Contac t Referred To Contact RESPIRATORY TACOMA Diagnoses Chronic obstructive pulmonary disease, unspecified COPD type (HCC) Procedures LUNG VOLUMES Sung Crowe MD [address] [place] [address] [facility] [address] [place] [address] Referral ID Status Reason Start Date Expiration Date Visits Requested Visits Authorized [id number] Pending Review Auto-Generat ed Referral 02/20/2023 03/21/2024 1 1 * Outpatient Procedure (Routine) - Authorized Specialty Diagnoses / Procedures Referred By Contac t Referred To [facility] RESPIRATORY [facility]ACOMA Diagnoses Chronic obstructive pulmonary disease, unspecified COPD type (HCC) Procedures SPIROMETRY WITH DILATOR IF OBSTRUCTED BRNCDILAT RSPSE SPMTRY PRE&POST-BRNCDILAT ADMSung Ferrell MD [address] [place] [address] [facility] [employer] [place] [address] Referral ID Status Reason Start Date Expiration Date Visits Requested Visits Authorized [id number] Authorized Auto-Generat ed Referral 02/20/2023 03/21/[address] [facility] for referral (narrative)* Diagnostic Procedure Only (Routine) - Closed Specialty Diagnoses / Procedures Referred By Contac t Referred To Contact XR IMAGING Diagnoses Chronic pain of left knee Procedures XR KNEE GENERAL 4V AP BOTH/PA BOTH/LAT/MERC LEFT RADIOLOGIC EXAM KNEE COMPLETE 4/MORE VIEWS Sung Crowe MD [address] [place] [address] [place] [address] Referral ID Status Reason Start Date Expiration Date V isits Requested Visits Authorized [id number] Closed Auto-Generate d Referral 12/22/2021 01/21/[address] [facility] for referral (narrative)* Diagnostic Procedure Only (Routine) - Closed Specialty Diagnoses / Procedures Referred By Contac t Referred To Contact XR IMAGING Diagnoses Acute pain of right shoulder Procedures XR SHOULDER GENERAL 3V OR MORE AP/TRUE AP/OTHER RIGHT RADEX SHOULDER COMPLETE MINIMUM 2 VIEWS Sung Crowe MD [address] [place] [address] [place] [address] Referral ID Status Reason Start Date Expiration Date V isits Requested Visits Authorized [id number] Closed Auto-Generate d Referral 08/25/2021 09/24/[address] [facility] for referral (narrative)* Diagnostic Procedure Only (Routine) - Authorized Specialty Diagnoses / Procedures Referred By Contac t Referred To Contact XR IMAGING Diagnoses Chronic knee instability, left Procedures XR KNEE GENERAL 4V AP BOTH/PA BOTH/LAT/MERC LEFT RADIOLOGIC EXAM KNEE COMPLETE 4/MORE VIEWS Janey Chaudhary APRN.CNP [address] [place] [address] [place] [address] Referral ID Status Reason Start Date Expiration Date Visits Requested Visits Authorized [id number] Authorized Auto-Generat ed Referral 4 05/13/2025 1 1 [facility] for referral (narrative)No reason for referral information availableWBarney [facility] Work Phone: Reason for visit Narrative* Outpatient Procedure (Routine) - Closed Specialty Diagnoses / Procedures Referred By Contac t Referred To Contact GENERAL SURGERY Diagnoses Epigastric abdominal pain Procedures EGD DIAGNOSTIC ESOPHAGOGASTRODUODENOSCOP Y TRANSORAL DIAGNOSTIC Jennifer Shannon MD [address] [place] [address] Jennifer Shannon MD [address] [place] [address] Referral ID Status Reason Start Date Expiration Date V isits Requested Visits Authorized [id number] Closed Auto-Generate d Referral 06/22/2022 06/23/[address] [facility] for visit Narrative* Diagnostic Procedure Only (Routine) - Closed Specialty Diagnoses / Procedures Referred By Contac t Referred To Contact XR IMAGING Diagnoses Chronic pain of left knee Procedures XR KNEE GENERAL 4V AP BOTH/PA BOTH/LAT/MERC LEFT RADIOLOGIC EXAM KNEE COMPLETE 4/MORE VIEWS Sung Crowe MD [address] [place] [address] [place] [address] Referral ID Status Reason Start Date Expiration Date V isits Requested Visits Authorized [id number] Closed Auto-Generate d Referral 12/22/2021 01/21/[address] [facility] for visit Narrative* Diagnostic Procedure Only (Routine) - Closed Specialty Diagnoses / Procedures Referred By Contac t Referred To Contact XR IMAGING Diagnoses Acute pain of right shoulder Procedures XR SHOULDER GENERAL 3V OR MORE AP/TRUE AP/OTHER RIGHT RADEX SHOULDER COMPLETE MINIMUM 2 VIEWS Sung Crowe MD [address] [place] [address] [place] [address] Referral ID Status Reason Start Date Expiration Date V isits Requested Visits Authorized [id number] Closed Auto-Generate d Referral 08/25/2021 09/24/2022 1 1 [facility] Diagnostic Procedure Only (Routine) - Closed Specialty Diagnoses / Procedures Referred By Adelita t Referred To Contact XR IMAGING Diagnoses Pain in both knees, unspecified chronicity Procedures XR KNEE GENERAL 4V AP BOTH/PA BOTH/LAT/MERC BILATERAL RADIOLOGIC EXAM KNEE COMPLETE 4/MORE VIEWS Jamie Haas PA-C [address] [address] [place] [address] Referral ID Status Reason Start Date Expiration Date V isits Requested Visits Authorized [id number] Closed Auto-Generate d Referral 07/19/2023 08/17/2024 1 1 [facility] Summary Purpose Family History No Family History Records FoundNo Family History Records FoundNo Family History Records FoundNo Family History Records FoundNo Family History Records Found Advance Directives No Advanced Directives Records FoundDocuments on File Type Date Recorded Patient Turn Operator Expl anation Advance Directive(s) 07/15/2018 10:56 AM Documents on File Type Date Recorded Patient Turn Operator Expl anation Advance Directive(s) 07/15/2018 10:56 AM Advance Directive Response Recorded Date/ Time Do you have a Healthcare Power of Belt Press Operator? No October 13, 2024 8:32pm Reason for Referral Specialty Diagnoses / Procedures Referred By Adelita eckert Referred To Contact Neurology Diagnoses Migraine with aura, not intractable, without status migrainosus Procedures CONSULT TO NEUROLOGY OFFICE/OUTPATIENT [facility] 60-74 MINUTES Sung Crowe MD [address] [place] [address] Referral ID Status Reason Start Date Expiration Date Visits Requested Visits Authorized [id number] Authorized PCP Requested Referral 12/22/2021 12/22/2022 1 1 Specialty Diagnoses / Procedures Referred By Adelita t Referred To Contact XR IMAGING Diagnoses Chronic pain of left knee Procedures XR KNEE GENERAL 4V AP BOTH/PA BOTH/LAT/MERC LEFT RADIOLOGIC EXAM KNEE COMPLETE 4/MORE VIEWS Sung Crowe MD [address] [place] [address] Xr Imaging Referral ID Status Reason Start Date Expiration Date V isits Requested Visits Authorized [id number] Closed Auto-Generate d Referral 12/22/2021 01/21/2023 1 1 Specialty Diagnoses / Procedures Referred By Contac t Referred To Contact Diagnoses Tobacco use Procedures CONSULT LUNG [facility]CER SCREENING CLINIC Sung Crowe MD [address] [place] [address] Referral ID Status Reason Start Date Expiration Date Visits Requested Visits Authorized [id number] Ref Not Required PCP Requested Referral 05/30/2022 2022 1 1 Specialty Diagnoses / Procedures Referred By Contac t Referred To Contact General Surgery Diagnoses GERD without esophagitis Gastritis without bleeding, unspecified chronicity, unspecified gastritis type Procedures CONSULT TO GENERAL SURGERY OFFICE/[facility] 60-74 MINUTES Sung Crowe MD [address] [place] [address] Referral ID Status Reason Start Date Expiration Date Visits Requested Visits Authorized [id number] Authorized PCP Requested Referral 05/30/2022 05/30/2023 1 1 Specialty Diagnoses / Procedures Referred By Contac t Referred To Contact Orthopedics Diagnoses Acute pain of left knee Procedures CONSULT TO [facility]THOPAEDICS OFFICE/[facility] 60-74 MINUTES Sung Crowe MD [address] [place] [address] Referral ID Status Reason Start Date Expiration Date Visits Requested Visits Authorized [id number] Authorized PCP Requested Referral 05/30/2022 05/30/2023 1 1 Specialty Diagnoses / Procedures Referred By Contac t Referred To Contact Neurology Diagnoses Tremor Procedures CONSULT TO NEUROLOGY OFFICE/[facility] 60-74 MINUTES Stella Lopez PA-C [address] [place] [address] Referral ID Status Reason Start Date Expiration Date Visits Requested Visits Authorized [id number] Authorized PCP Requested Referral 06/13/2022 06/13/2023 1 1 Specialty Diagnoses / Procedures Referred By Contac t Referred To Contact Diagnoses Paranoid schizophrenia (HCC) Anxiety Bipolar 1 disorder (HCC) Procedures CONSULT TO PSYCHIATRY OFFICE/[facility] 60-74 MINUTES Stella Lopez PA-C [address] [place] [address] Referral ID Status Reason Start Date Expiration Date Visits Requested Visits Authorized [id number] Pending Review PCP Requested Referral 06/13/2022 06/13/2023 1 1 Specialty Diagnoses / Procedures Referred By Contac t Referred To Contact General Surgery Diagnoses Weight loss History of colonic polyps Change in bowel function Procedures CONSULT TO GENERAL SURGERY OFFICE/[facility] 60-74 MINUTES Sung Crowe MD [address] [place] [address] Referral ID Status Reason Start Date Expiration Date Visits Requested Visits Authorized [id number] Authorized PCP Requested Referral 12/05/2022 12/05/2023 1 1 Specialty Diagnoses / Procedures Referred By Contac t Referred To Contact CT IMAGING Diagnoses Weight loss Chest wall pain Intercostal pain Procedures CT CHEST W IVCON DIAGNOSTIC COMPUTED TOMOGRAPHY THORAX W/CONTRAST Sung Crowe MD [address] [place] [address] Ct Imaging [facility] Referral ID Status Reason Start Date Expiration Date Visits Requested Visits Authorized [id number] Authorized Auto-Generat ed Referral 12/05/2022 01/04/2024 1 1 Specialty Diagnoses / Procedures Referred By Contac t Referred To Contact CT IMAGING Diagnoses Weight loss Left upper quadrant abdominal pain Procedures CT ABD/PEL W IVCON CT ABD & PELVIS W/CONTRAST Sung Crowe MD [address] [place], [place] [id number] Ct Imaging [place] [address] Referral ID Status Reason Start Date Expiration Date Visits Requested Visits Authorized [id number] Authorized Auto-Generat ed Referral 12/05/2022 01/04/2024 1 1 Specialty Diagnoses / Procedures Referred By Contac t Referred To Contact Neurology Diagnoses Drug-induced tremor Procedures CONSULT TO NEUROLOGY OFFICE/[facility] 60-74 MINUTES Stella Lopez PA-C [facility] [place] [id number] Referral ID Status Reason Start Date Expiration Date Visits Requested Visits Authorized [id number] Authorized PCP Requested Referral 12/12/2022 12/12/2023 1 1 Specialty Diagnoses / Procedures Referred By Contac t Referred To Contact CT IMAGING Diagnoses Lung nodule Lung nodules Procedures CT CHEST WO IVCON DIAGNOSTIC COMPUTED TOMOGRAPHY THORAX W/O SERAFINRST Sung Crowe MD [address] [place] [address] [place] [address] Referral ID Status Reason Start Date Expiration Date Visits Requested Visits Authorized [id number] Pending Review Auto-Generat ed Referral 12/14/2023 01/12/2024 1 1 Specialty Diagnoses / Procedures Referred By Contac t Referred To Contact Gastroenterology Diagnoses Abdominal pain, unspecified abdominal location Procedures CONSULT TO [facility]STROENTEROLOGY OFFICE/[facility] 60 MINUTES Monica Walker APRN.[employer]ING EXECUTIVE [address] [place] [address] Referral ID Status Reason Start Date Expiration Date Visits Requested Visits Authorized [id number] Authorized PCP Requested Referral 07/03/2023 07/02/2024 1 1 Specialty Diagnoses / Procedures Referred By Contac t Referred To Contact MOLECULAR & FUNCTIONAL IMAGING Diagnoses Dyspepsia Nausea Procedures NM GASTRIC EMPTYING SOLID GASTRIC EMPTYING STUDY Monica Walker APRN.[employer]ETING EXECUTIVE [address] [place] [address] Molecular & Functional Imaging [address] [place] [address] Referral ID Status Reason Start Date Expiration Date Visits Requested Visits Authorized [id number] Authorized Auto-Generat ed Referral 07/03/2023 08/01/2024 1 1 Specialty Diagnoses / Procedures Referred By Contac t Referred To Contact Orthopedics Diagnoses Chronic pain of left knee Foreign body of right knee Procedures CONSULT TO [facility]THOPAEDICS OFFICE/[facility] 60 MINUTES Monica Walker APRN.[employer]ALES AND MARKETING EXECUTIVE [address] [place] [address] Referral ID Status Reason Start Date Expiration Date Visits Requested Visits Authorized [id number] Authorized PCP Requested Referral 07/03/2023 07/02/2024 1 1 Specialty Diagnoses / Procedures Referred By Contac t Referred To Contact Diagnoses Bipolar 1 disorder (HCC) Anxiety Procedures CONSULT TO PSYCHIATRY OFFICE/[facility] 60 MINUTES Sung Glynn Jr., MD [address] [place] [address] Referral ID Status Reason Start Date Expiration Date Visits Requested Visits Authorized [id number] Pending Review PCP Requested Referral 4 03/06/2025 1 1 Specialty Diagnoses / Procedures Referred By Contac t Referred To Contact Gastroenterology Diagnoses Poor appetite Abnormal weight loss Abdominal pain, unspecified abdominal location Procedures CONSULT TO [facility]STR[facility]ENTEROLOGY OFFICE/[facility] 60 MINUTES Sung Glynn Jr., MD [address] [place] [address] Referral ID Status Reason Start Date Expiration Date Visits Requested Visits Authorized [id number] Authorized PCP Requested Referral 4 03/06/2025 1 1 Medications Administered Section Inactive Administered Medications - up to 3 most recent administrations Medication Order MAR Action Action Date Dose Rate Site benzocaine 20 % mucosal spray (HURRICAINE ONE) MUCOUS MEMBRANE (TOPICAL MOUTH & THROAT), ONCE, 1 dose, On Kaya 08/09/22 at 1100, Intraprocedure Given 08/09/2022 11:02 AM EDT 1 [place] Chief Complaint and Reason for Visit Chief Complaint Admit Date mental health October 13, 2024 8:14 pm Additional Source Comments (unrecognized sect ion and content) No Status Records FoundNo Status Records FoundNo Status Records FoundNo Status Records FoundNo Status Records Found INFORMATION SOURCE (unrecogn ized section and content) DATE CREATED AUTHOR 10/15/2017 [facility] DATE CREATED AUTHOR AUTHOR'S ORGANIZ ATION [facility]20[facility] DATE CREATED AUTHOR AUTHOR'S ORGANIZ ATION 08/14/2022 [facility] DATE CREATED AUTHOR AUTHOR'S ORGANIZ ATION 10/18/2024 [facility] DATE CREATED AUTHOR AUTHOR'S ORGANIZ ATION 11/04/2024 [facility] Source Comments (unrecognize d section and content) In the event this informatio n is protected by the Federal Confidentiality of Alcohol and Drug Abuse Patient Records regulations: The Federal rules restrict any use of the information to criminally investigate or prosecute any alcohol or drug abuse patient.[facility] CenterIn the event this information is protected by the Federal Confidentiality of Alcohol and Drug Abuse Patient Records regulations: The Federal rules restrict any use of the information to criminally investigate or prosecute any alcohol or drug abuse patient.[facility] CenterIn the event this information is protected by the Federal Confidentiality of Alcohol and Drug Abuse Patient Records regulations: The Federal rules restrict any use of the information to criminally investigate or prosecute any alcohol or drug abuse patient.[facility] CenterIn the event this information is protected by the Federal Confidentiality of Alcohol and Drug Abuse Patient Records regulations: The Federal rules restrict any use of the information to criminally investigate or prosecute any alcohol or drug abuse patient.[facility] CenterIn the event this information is protected by the Federal Confidentiality of Alcohol and Drug Abuse Patient Records regulations: The Federal rules restrict any use of the information to criminally investigate or prosecute any alcohol or drug abuse patient.[facility] CenterIn the event this information is protected by the Federal Confidentiality of Alcohol and Drug Abuse Patient Records regulations: The Federal rules restrict any use of the information to criminally investigate or prosecute any alcohol or drug abuse patient.[facility] CenterIn the event this information is protected by the Federal Confidentiality of Alcohol and Drug Abuse Patient Records regulations: The Federal rules restrict any use of the information to criminally investigate or prosecute any alcohol or drug abuse patient.[facility] CenterIn the event this information is protected by the Federal Confidentiality of Alcohol and Drug Abuse Patient Records regulations: The Federal rules restrict any use of the information to criminally investigate or prosecute any alcohol or drug abuse patient.[facility] ClinicIn the event this information is protected by the Federal Confidentiality of Alcohol and Drug Abuse Patient Records regulations: The Federal rules restrict any use of the information to criminally investigate or prosecute any alcohol or drug abuse patient.[facility] CenterIn the event this information is protected by the Federal Confidentiality of Alcohol and Drug Abuse Patient Records regulations: The Federal rules restrict any use of the information to criminally investigate or prosecute any alcohol or drug abuse patient.[facility] CenterIn the event this information is protected by the Federal Confidentiality of Alcohol and Drug Abuse Patient Records regulations: The Federal rules restrict any use of the information to criminally investigate or prosecute any alcohol or drug abuse patient.[facility] CenterIn the event this information is protected by the Federal Confidentiality of Alcohol and Drug Abuse Patient Records regulations: The Federal rules restrict any use of the information to criminally investigate or prosecute any alcohol or drug abuse patient.[facility] CenterIn the event this information is protected by the Federal Confidentiality of Alcohol and Drug Abuse Patient Records regulations: The Federal rules restrict any use of the information to criminally investigate or prosecute any alcohol or drug abuse patient.[facility] CenterIn the event this information is protected by the Federal Confidentiality of Alcohol and Drug Abuse Patient Records regulations: The Federal rules restrict any use of the information to criminally investigate or prosecute any alcohol or drug abuse patient.[facility] CenterIn the event this information is protected by the Federal Confidentiality of Alcohol and Drug Abuse Patient Records regulations: The Federal rules restrict any use of the information to criminally investigate or prosecute any alcohol or drug abuse patient.[facility] CenterIn the event this information is protected by the Federal Confidentiality of Alcohol and Drug Abuse Patient Records regulations: The Federal rules restrict any use of the information to criminally investigate or prosecute any alcohol or drug abuse patient.[facility] CenterIn the event this information is protected by the Federal Confidentiality of Alcohol and Drug Abuse Patient Records regulations: The Federal rules restrict any use of the information to criminally investigate or prosecute any alcohol or drug abuse patient.[facility] CenterIn the event this information is protected by the Federal Confidentiality of Alcohol and Drug Abuse Patient Records regulations: The Federal rules restrict any use of the information to criminally investigate or prosecute any alcohol or drug abuse patient.[facility] CenterIn the event this information is protected by the Federal Confidentiality of Alcohol and Drug Abuse Patient Records regulations: The Federal rules restrict any use of the information to criminally investigate or prosecute any alcohol or drug abuse patient.[facility] CenterIn the event this information is protected by the Federal Confidentiality of Alcohol and Drug Abuse Patient Records regulations: The Federal rules restrict any use of the information to criminally investigate or prosecute any alcohol or drug abuse patient.[facility] CenterIn the event this information is protected by the Federal Confidentiality of Alcohol and Drug Abuse Patient Records regulations: The Federal rules restrict any use of the information to criminally investigate or prosecute any alcohol or drug abuse patient.[facility] CenterIn the event this information is protected by the Federal Confidentiality of Alcohol and Drug Abuse Patient Records regulations: The Federal rules restrict any use of the information to criminally investigate or prosecute any alcohol or drug abuse patient.[facility] CenterIn the event this information is protected by the Federal Confidentiality of Alcohol and Drug Abuse Patient Records regulations: The Federal rules restrict any use of the information to criminally investigate or prosecute any alcohol or drug abuse patient.[facility] CenterIn the event this information is protected by the Federal Confidentiality of Alcohol and Drug Abuse Patient Records regulations: The Federal rules restrict any use of the information to criminally investigate or prosecute any alcohol or drug abuse patient.[facility] CenterIn the event this information is protected by the Federal Confidentiality of Alcohol and Drug Abuse Patient Records regulations: The Federal rules restrict any use of the information to criminally investigate or prosecute any alcohol or drug abuse patient.[facility] CenterIn the event this information is protected by the Federal Confidentiality of Alcohol and Drug Abuse Patient Records regulations: The Federal rules restrict any use of the information to criminally investigate or prosecute any alcohol or drug abuse patient.[facility] CenterIn the event this information is protected by the Federal Confidentiality of Alcohol and Drug Abuse Patient Records regulations: The Federal rules restrict any use of the information to criminally investigate or prosecute any alcohol or drug abuse patient.[facility] CenterIn the event this information is protected by the Federal Confidentiality of Alcohol and Drug Abuse Patient Records regulations: The Federal rules restrict any use of the information to criminally investigate or prosecute any alcohol or drug abuse patient.[facility] CenterIn the event this information is protected by the Federal Confidentiality of Alcohol and Drug Abuse Patient Records regulations: The Federal rules restrict any use of the information to criminally investigate or prosecute any alcohol or drug abuse patient.[facility] CenterIn the event this information is protected by the Federal Confidentiality of Alcohol and Drug Abuse Patient Records regulations: The Federal rules restrict any use of the information to criminally investigate or prosecute any alcohol or drug abuse patient.[facility] CenterIn the event this information is protected by the Federal Confidentiality of Alcohol and Drug Abuse Patient Records regulations: The Federal rules restrict any use of the information to criminally investigate or prosecute any alcohol or drug abuse patient.[facility] CenterIn the event this information is protected by the Federal Confidentiality of Alcohol and Drug Abuse Patient Records regulations: The Federal rules restrict any use of the information to criminally investigate or prosecute any alcohol or drug abuse patient.[facility] CenterIn the event this information is protected by the Federal Confidentiality of Alcohol and Drug Abuse Patient Records regulations: The Federal rules restrict any use of the information to criminally investigate or prosecute any alcohol or drug abuse patient.[facility] CenterIn the event this information is protected by the Federal Confidentiality of Alcohol and Drug Abuse Patient Records regulations: The Federal rules restrict any use of the information to criminally investigate or prosecute any alcohol or drug abuse patient.[facility] CenterIn the event this information is protected by the Federal Confidentiality of Alcohol and Drug Abuse Patient Records regulations: The Federal rules restrict any use of the information to criminally investigate or prosecute any alcohol or drug abuse patient.[facility] CenterIn the event this information is protected by the Federal Confidentiality of Alcohol and Drug Abuse Patient Records regulations: The Federal rules restrict any use of the information to criminally investigate or prosecute any alcohol or drug abuse patient.[facility] CenterIn the event this information is protected by the Federal Confidentiality of Alcohol and Drug Abuse Patient Records regulations: The Federal rules restrict any use of the information to criminally investigate or prosecute any alcohol or drug abuse patient.[facility] CenterIn the event this information is protected by the Federal Confidentiality of Alcohol and Drug Abuse Patient Records regulations: The Federal rules restrict any use of the information to criminally investigate or prosecute any alcohol or drug abuse patient.[facility] CenterIn the event this information is protected by the Federal Confidentiality of Alcohol and Drug Abuse Patient Records regulations: The Federal rules restrict any use of the information to criminally investigate or prosecute any alcohol or drug abuse patient.[facility] CenterIn the event this information is protected by the Federal Confidentiality of Alcohol and Drug Abuse Patient Records regulations: The Federal rules restrict any use of the information to criminally investigate or prosecute any alcohol or drug abuse patient.[facility] CenterIn the event this information is protected by the Federal Confidentiality of Alcohol and Drug Abuse Patient Records regulations: The Federal rules restrict any use of the information to criminally investigate or prosecute any alcohol or drug abuse patient.[facility] CenterIn the event this information is protected by the Federal Confidentiality of Alcohol and Drug Abuse Patient Records regulations: The Federal rules restrict any use of the information to criminally investigate or prosecute any alcohol or drug abuse patient.[facility] CenterIn the event this information is protected by the Federal Confidentiality of Alcohol and Drug Abuse Patient Records regulations: The Federal rules restrict any use of the information to criminally investigate or prosecute any alcohol or drug abuse patient.[facility] CenterIn the event this information is protected by the Federal Confidentiality of Alcohol and Drug Abuse Patient Records regulations: The Federal rules restrict any use of the information to criminally investigate or prosecute any alcohol or drug abuse patient.[facility] CenterIn the event this information is protected by the Federal Confidentiality of Alcohol and Drug Abuse Patient Records regulations: The Federal rules restrict any use of the information to criminally investigate or prosecute any alcohol or drug abuse patient.[facility] CenterIn the event this information is protected by the Federal Confidentiality of Alcohol and Drug Abuse Patient Records regulations: The Federal rules restrict any use of the information to criminally investigate or prosecute any alcohol or drug abuse patient.[facility] CenterIn the event this information is protected by the Federal Confidentiality of Alcohol and Drug Abuse Patient Records regulations: The Federal rules restrict any use of the information to criminally investigate or prosecute any alcohol or drug abuse patient.[facility] Reason for Visit (unrecogniz ed section and content) Reason Onset Date Comments Opened In Error 08/24/2021 Reason Comments 6 Month Exam Reason Onset Date Comments Refill Request 08/31/2021 Reason Onset Date Comments Refill Request 12/21/2021 Reason Comments Musculoskeletal Problem Left leg/knee pa in Reason Comments left leg pain Reason Onset Date Comments Refill Request 02/27/2022 Reason Comments Patient Update Reason Onset Date Comments Refill Request 03/28/2022 Reason Onset Date Comments Follow Up Immunizations 05/30/2022 Flu vaccination Reason Comments Consult GERD without esophag itis Specialty Diagnoses / Procedures Referred By Contac t Referred To Contact General Surgery Diagnoses GERD without esophagitis Gastritis without bleeding, unspecified chronicity, unspecified gastritis type Procedures CONSULT TO GENERAL SURGERY OFFICE/OUTPATIENT [facility] MDM 60-74 MINUTES Sung Crowe MD [address] [place] [address] Referral ID Status Reason Start Date Expiration Date V isits Requested Visits Authorized [id number] Closed PCP Requested Referral 05/30/2022 05/30/2023 1 1 Reason Comments Follow Up Reason Onset Date Comments Refill Request 07/24/2022 Reason Comments 6 Month Exam Reason Comments Follow Up Reason Comments Results Reason Comments Appointment Reason Onset Date Comments Follow Up Weight loss Immunizations 02/20/2023 Flu vaccination Reason Comments Spirometry Specialty Diagnoses / Procedures Referred By Contac t Referred To Contact [facility] Diagnoses Chronic obstructive pulmonary disease, unspecified COPD type (HCC) Procedures SPIROMETRY WITH DILATOR IF OBSTRUCTED BRNCDILAT RSPSE SPMTRY PRE&POST-BRNCDILAT ADMN Sung Crowe MD [address] [place] [address] [facility] [address] [place] [address] Referral ID Status Reason Start Date Expiration Date V isits Requested Visits Authorized [id number] Closed Auto-Generate d Referral 02/20/2023 03/21/2024 1 1 Specialty Diagnoses / Procedures Referred By Contac t Referred To Contact [facility] Diagnoses Chronic obstructive pulmonary disease, unspecified COPD type (HCC) Procedures LUNG VOLUMES Sung Crowe MD [address] [place] [address] [facility] [address] [place] [address] Referral ID Status Reason Start Date Expiration Date V isits Requested Visits Authorized [id number] Closed Auto-Generate d Referral 02/21/2023 04/21/2023 1 1 Reason Onset Date Comments Refill Request 05/29/2023 Reason Comments Recheck 3 month follow up Reason Onset Date Comments Refill Request 08/23/2023 Reason Comments Follow Up Reason Onset Date Comments Refill Request 09/23/2023 Reason Onset Date Comments Refill Request 12/03/2023 Reason Onset Date Comments Refill Request 01/03/2024 Reason Onset Date Comments Refill Request 01/08/2024 Reason Comments Established Patient Migrianes getting wo rse x3/wkTremors getting betterInsomnia still, couple times a week Reason Onset Date Comments Refill Request 04/09/2024 Reason Comments Rash Bilateral arms x wee ks Reason Comments New Referred by Yesica Chaudhary Knee Pain Referred by Yesica Chaudhary Specialty Diagnoses / Procedures Referred By Adelita eckert Referred To Contact Orthopedics Diagnoses Osteoarthritis of left knee, unspecified osteoarthritis type Genu varum of left lower extremity Effusion of left knee Procedures CONSULT TO ORTHOPAEDICS OFFICE/OUTPATIENT NEW HIGH MDM 60 MINUTES Janey Chaudhary, [employer] SALES AND SERVICE SUPERVISOR.SALES AND MARKETING EXECUTIVE [address] [place] [address] Phone: tel: fax: Referral ID Status Reason Start Date Expiration Date V isits Requested Visits Authorized [id number] Closed PCP Requested Referral 06/04/2024 06/03/2025 1 1 Reason Onset Date Comments Refill Request 07/24/2024 Reason Comments Bed bugs Reason Comments Appointment Patient Update Reason Comments Refill Request Reason Comments Patient Update Appointment Care Teams (unrecognized sec tion and content) Aoc Director Intelligence Officer Relationship Specialty Start Date End Date Sung Crowe MD [address] [place] [address] PCP - General Family Practice 05/15/18 Aoc Director Intelligence Officer Relationship Specialty Start Date End Date Sung Crowe MD [address] [facility] [place] [address] PCP - General Family Practice 05/15/18 Aoc Director Intelligence Officer Relationship Specialty Start Date End Date Sung Crowe MD [address] [facility] [place] [address] PCP - General Family Practice 05/15/18 Aoc Director Intelligence Officer Relationship Specialty Start Date End Date Sung Crowe MD [address] [facility] [place] [address] PCP - General Family Practice 05/15/18 Aoc Director Intelligence Officer Relationship Specialty Start Date End Date Sung Crowe MD [address] [facility] [place] [address] PCP - General Family Practice 05/15/18 Aoc Director Intelligence Officer Relationship Specialty Start Date End Date Sung Crowe MD [address] [facility] [place] [address] PCP - General Family Medicine 05/15/18 Aoc Director Intelligence Officer Relationship Specialty Start Date End Date Sung Crowe MD [address] [facility] [place] [address] PCP - General Family Medicine 05/15/18 Aoc Director Intelligence Officer Relationship Specialty Start Date End Date Sung Crowe MD [address] [facility] [place] [address] PCP - General Family Medicine 05/15/18 Aoc Director Intelligence Officer Relationship Specialty Start Date End Date Sung Croew MD [address] [facility] [place] [address] PCP - General Family Medicine 05/15/18 Aoc Director Intelligence Officer Relationship Specialty Start Date End Date Sung Crowe MD [address] [place] [address] PCP - General Family Medicine 05/15/18 Aoc Director Intelligence Officer Relationship Specialty Start Date End Date Sung Crowe MD [address] [place] [address] PCP - General Family Medicine 05/15/18 Aoc Director Intelligence Officer Relationship Specialty Start Date End Date Sung Crowe MD [address] [place] [address] PCP - General Family Medicine 05/15/18 Aoc Director Intelligence Officer Relationship Specialty Start Date End Date Sung Crowe MD [address] [place] [address] PCP - General Family Medicine 05/15/18 Aoc Director Intelligence Officer Relationship Specialty Start Date End Date Sung Crowe MD [address] [place] [address] PCP - General Family Medicine 05/15/18 Aoc Director Intelligence Officer Relationship Specialty Start Date End Date Sung Crowe MD [address] [place] [address] PCP - General Family Medicine 05/15/18 Aoc Director Intelligence Officer Relationship Specialty Start Date End Date Sung Crowe MD [address] [place] [address] PCP - General Family Medicine 05/15/18 Aoc Director Intelligence Officer Relationship Specialty Start Date End Date Sung Crowe MD [address] [place] [address] PCP - General Family Medicine 05/15/18 Aoc Director Intelligence Officer Relationship Specialty Start Date End Date Sung Crowe MD [address] [place] [address] PCP - General Family Medicine 05/15/18 Aoc Director Intelligence Officer Relationship Specialty Start Date End Date Sung Crowe MD [address] [place] [address] PCP - General Family Medicine 05/15/18 Aoc Director Intelligence Officer Relationship Specialty Start Date End Date Sung Crowe MD [address] [place] [address] PCP - General Family Medicine 05/15/18 Aoc Director Intelligence Officer Relationship Specialty Start Date End Date Sung Crowe MD [address] [place] [address] PCP - General Family Medicine 05/15/18 Aoc Director Intelligence Officer Relationship Specialty Start Date End Date Sung Crowe MD [address] [place] [address] PCP - General Family Medicine 05/15/18 Aoc Director Intelligence Officer Relationship Specialty Start Date End Date Sung Crowe MD [address] [place] [address] PCP - General Family Medicine 05/15/18 Aoc Director Intelligence Officer Relationship Specialty Start Date End Date Sung Crowe MD [address] [place] [address] PCP - General Family Medicine 05/15/18 Aoc Director Intelligence Officer Relationship Specialty Start Date End Date Sung Crowe MD [address] [place] [address] PCP - General Family Medicine 05/15/18 Aoc Director Intelligence Officer Relationship Specialty Start Date End Date Sung Crowe MD [address] [facility] [place] [place] [address] PCP - General Family Medicine 05/15/18 Aoc Director Intelligence Officer Relationship Specialty Start Date End Date Sung Crowe MD [address] [facility] [place] [address] PCP - General Family Medicine 05/15/18 Aoc Director Intelligence Officer Relationship Specialty Start Date End Date Sung Crowe MD [address] [facility] [place] [address] PCP - General Family Medicine 05/15/18 Aoc Director Intelligence Officer Relationship Specialty Start Date End Date Sung Crowe MD [address] [facility] [place] [address] PCP - General Family Medicine 05/15/18 Aoc Director Intelligence Officer Relationship Specialty Start Date End Date Sung Crowe MD [address] [facility] [place] [address] PCP - General Family Medicine 05/15/18 Monica Walker, [employer] SALES AND SERVICE SUPERVISOR.SALES AND MARKETING EXECUTIVE [address] [facility] [place] [address] Creasing Machine Operator Family Medicine 03/30/24 Janey Chaudhary MARINA SALES AND SERVICE SUPERVISOR.SALES AND MARKETING EXECUTIVE [address] [facility] [place] [place] [address] Creasing Machine Operator Family Medicine 03/30/24 Aoc Director Intelligence Officer Relationship Specialty Start Date End Date Sung Crowe MD [address] [facility] [place] [address] PCP - General Family Medicine 05/15/18 Monica Walker, MARINA SALES AND SERVICE SUPERVISOR.SALES AND MARKETING EXECUTIVE [address] [facility] [place] [address] Creasing Machine Operator Family Medicine 03/30/24 Janey Chaudhary APRN.SALES AND MARKETING EXECUTIVE [address] [facility] [place] [address] Creasing Machine Operator Family Medicine 03/30/24 Aoc Director Intelligence Officer Relationship Specialty Start Date End Date Sung Crowe MD [address] [place] [address] PCP - General Family Medicine 05/15/18 Monica Walker APRN.SALES AND MARKETING EXECUTIVE [address] [place] [address] Creasing Machine Operator Family Medicine 03/30/24 Janey Chaudhary APRN.SALES AND MARKETING EXECUTIVE [address] [place] [address] Creasing Machine Operator Family Medicine 03/30/24 Aoc Director Intelligence Officer Relationship Specialty Start Date End Date Sung Crowe MD [address] [place] [address] PCP - General Family Medicine 05/15/18 Monica Walker APRN.SALES AND MARKETING EXECUTIVE [address] [place] [address] Creasing Machine Operator Family Medicine 03/30/24 Janey Chaudhary APRN.SALES AND MARKETING EXECUTIVE [address] [place] [address] Creasing Machine Operator Family Medicine 03/30/24 Aoc Director Intelligence Officer Relationship Specialty Start Date End Date Sung Crowe MD [address] [place] [address] PCP - General Family Medicine 05/15/18 Monica Walker APRN.SALES AND MARKETING EXECUTIVE [address] [facility] [place] [address] Creasing Machine Operator Family Medicine 03/30/24 Janey Chaudhary APRN.SALES AND MARKETING EXECUTIVE [address] [facility] [place] [address] Creasing Machine Operator Family Medicine 03/30/24 Aoc Director Intelligence Officer Relationship Specialty Start Date End Date Sung Crowe MD [address] [facility] [place] [address] PCP - General Family Medicine 05/15/18 Monica Walker APRN.SALES AND MARKETING EXECUTIVE [address] [facility] [place] [address] Creasing Machine Operator Family Medicine 03/30/24 Janey Chaudahry APRN.SALES AND MARKETING EXECUTIVE [address] [facility] [place] [address] Creasing Machine Operator Family Medicine 03/30/24 Aoc Director Intelligence Officer Relationship Specialty Start Date End Date Sung Crowe MD [address] [facility] [place] [place] [address] PCP - General Family Medicine 05/15/18 Monica Walker APRN.SALES AND MARKETING EXECUTIVE [address] [facility] [place] [address] Creasing Machine Operator Family Medicine 03/30/24 Janey Chaudhary APRN.SALES AND MARKETING EXECUTIVE [address] [facility] [place] [place] [address] Creasing Machine Operator Family Medicine 03/30/24 Aoc Director Intelligence Officer Relationship Specialty Start Date End Date Sung Crowe MD [address] [facility] [place] [address] PCP - General Family Medicine 05/15/18 Monica Walker APRN.SALES AND MARKETING EXECUTIVE [address] [facility] [place] [address] [facility] 03/30/24 Janey Chaudhary APRN.SALES AND MARKETING EXECUTIVE [address] [facility] [place] [address] [facility] 03/30/24 Aoc Director Intelligence Officer Relationship Specialty Start Date End Date Sung Crowe MD [address] [facility] [place] [address] PCP - General Family Medicine 05/15/18 Monica Walker MARINA SALES AND SERVICE SUPERVISOR.SALES AND MARKETING EXECUTIVE [address] [facility] [place] [address] [facility] 03/30/24 Janey Chaudhary MARINA SALES AND SERVICE SUPERVISOR.SALES AND MARKETING EXECUTIVE [address] [facility] [place] [address] [facility] 03/30/24 Aoc Director Intelligence Officer Relationship Specialty Start Date End Date Sung Crowe MD [address] [facility] [place] [address] PCP - General Family Medicine 05/15/18 Monica Walker APRN.SALES AND MARKETING EXECUTIVE [address] [facility] [place] [address] [facility] Medicine 03/30/24 Janey Chaudhary APRN.SALES AND MARKETING EXECUTIVE [address] [place] [address] Creasing Machine Operator Family Medicine 03/30/24 Team Status: Active Member Role Status Dates Dr. Sung Crowe MD Primary Care Provider Active Team Status: Inactive Member Role Status Dates Dr. Sung Crowe MD Primary Care Provider Active Start: October 13, 2024 End: October 13, 2024 Dr. Rambo Suggs MD Emergency Provider Active Sta rt: October 13, 2024 End: October 13, 2024 Goals (unrecognized section and content) Goals may be documented in a n alternate section FOR RECORDS PERTAINING TO PATIENTS WHO ARE OR HAVE BEEN ENROLLED IN A CHEMICAL DEPENDENCY/SUBSTANCEABUSE PROGRAM, SOME INFORMATION MAY BE OMITTED. This clinical summary was aggregated from multiple sources. Caution should be exercised in using it in the provision of clinical care. This summary normalizes information from multiple sources, and as a consequence, information in this document may materially change the coding, format and clinical context of patient data. In addition, data may be omitted in some cases. CLINICAL DECISIONS SHOULD BE BASED ON THE PRIMARY CLINICAL RECORDS. [facility] [employer] [facility]. provides no warranty or guarantee of the accuracy or completeness of information in this document.
== END 2025-03-02 22:45 | disposition home or self-care (01) ==
LOC: ED 22:34
PROVIDERS: Emergency Provider Emergency Medicine; PCP Family Medicine; Visit Provider Emergency Medicine
DX: K04.7 Periapical abscess without sinus (principal); F25.9 Schizoaffective disorder, unspecified; E78.5 Hyperlipidemia, unspecified; R68.84 Jaw pain; F17.210 Nicotine dependence, cigarettes, uncomplicated
CPT/HCPCS: 41800; 99284